=== PATIENT | male | born 1975 | race African-American/Black ===

== ENCOUNTER 2016-05-16 17:47 | Inpatient (IN) | payer OTHER ==
[~2016-05-16] VITALS: Ht 193 cm; Wt 113.4 kg
[~2016-05-16 17:47] MED LIST: ALPR0.253 PO; ARIP10TA28 PO; ATOR20TA40 PO; CARV6.25 PO; FURO-570 PO; METF500T64 PO; PHEN100C4 PO; QUET400T PO; [UNRECOGNIZED DRUG - CODE] SUBQ
[2016-05-16 17:49] VITALS: BP 148/93
--- NOTE | 2016-05-16 20:58 | NUR ---
PT TAKEN TO OF
--- NOTE | 2016-05-16 21:03 | NUR ---
PT MOVED TO BED 3
--- NOTE | 2016-05-16 21:05 | NUR ---
PATIENT PRESENTS TO ED WITH CP X 2 DAYS . PT STATES HE HAS A HX OF HTN, LUPUS, SICKLE CELL, 3 HEART ATTACKS FIRST ONE WAS IN 2000, STROKE 3 WEEKS AGO WITH NO CARIDOLOGIST, BLOOD CLOT DX AT [facility] 04/17/16 AND BLOOD CLOT DX FROM [facility]. PT DENIES N/V/D; SKIN IS PINK/WARM/DRY; AAOX4 WITH EVEN AND STEADY GAIT; LUNGS CLEAR BL; HR EVEN AND REGULAR; PT DENIES ANY FEVER, SOB, OR COUGH AT THIS TIME; PATIENT STATES PAIN OF 10/10 AT THIS TIME; VSS; PATIENT POSITIONED FOR COMFORT; HOB ELEVATED; BEDRAILS UP X2; BED DOWN. ER MD MADE AWARE OF PT STATUS.
--- NOTE | 2016-05-16 21:16 | NUR ---
Dr. Gary evaluating patient at bedside.
--- NOTE | 2016-05-16 21:17 | NUR ---
PT STATES HE IS ALLERGIC TO PCN, NITRO, ASA, IBU, - RASH AND SOB, ER MD DR CHRISTIANSON AWARE
[2016-05-16] MEDS ORDERED: MORPHINE SULFATE 4 MG/ML SYR IVP ONE (22:05)
[2016-05-16 22:43] LABS: BASOPHILS # (AUTO) 0.2 K/uL (0.00-0.22); BASOPHILS % (AUTO) 2.9 % (0.0-2.0); EOSINOPHILS # (AUTO) 0.2 K/uL (0-0.4); EOSINOPHILS % (AUTO) 2.9 % (0.0-4.0); HEMATOCRIT 32.1 % (36-52); HEMOGLOBIN 10.1 g/dL (12.0-18.0); LYMPHOCYTES # (AUTO) 2.1 K/uL (2.0-11.5); LYMPHOCYTES % (AUTO) 32.6 % (20.5-51.1); MEAN CORPUSCULAR HEMOGLOBIN 23 pg (27-31); MEAN CORPUSCULAR HGB CONC 31 g/dL (33-37); MEAN CORPUSCULAR VOLUME 75 fL (80-94); MONOCYTES # (AUTO) 0.4 K/uL (0.8-1.0); MONOCYTES % (AUTO) 6.1 % (1.7-9.3); NEUTROPHILS # (AUTO) 3.4 K/uL (1.8-7.7); NEUTROPHILS % (AUTO) 55.5 % (42.2-75.2); PLATELET COUNT (AUTO) 172 K/uL (140-450); RED CELL DISTRIBUTION WIDTH 17.9 % (11.6-13.7); WHITE BLOOD COUNT (AUTO) 6.3 K/uL (4.8-10.8)
[2016-05-16] MEDS ORDERED: diphenhydrAMINE 50 MG/ML VIAL ONE (22:47)
[2016-05-16] MEDS ORDERED: diphenhydrAMINE 50 MG/ML VIAL IVP ONE (23:10)
[2016-05-16 23:15] LABS: ANION GAP 9.4 (8-16); CALCIUM 7.9 mg/dL (8.5-10.1); CARBON DIOXIDE 28.7 mmol/L (21-32); CREATININE 1.1 mg/dL (0.6-1.3); POTASSIUM 4.1 mmol/L (3.5-5.1)
[2016-05-16 23:20] LABS: ALBUMIN 3.2 g/dL (3.4-5.0); TOTAL BILIRUBIN 0.1 mg/dL (0.0-1.0); TOTAL PROTEIN, SERUM 6.7 g/dL (6.4-8.2)
[2016-05-16 23:32] LABS: CREATINE KINASE MB 3.2 ng/mL (0-3.6)
[2016-05-17] MEDS ORDERED: NACL 0.9% 1,000 ML IV SCH (00:06)
--- NOTE | 2016-05-17 00:07 | NUR ---
Pt report given to DANIELA SUNSHINE. Transfer of care at this time.
--- NOTE | 2016-05-17 00:07 | NUR ---
Patient will be admitted to care of DR SALAS . Admited to TELE 123B. Will go to room 123B. Belongings list completed. Report to DANIELA SUNSHINE.
[2016-05-17] MEDS ORDERED: ACETAMINOPHEN 325 MG TAB PO PRN (00:10)
[2016-05-17] MEDS ORDERED: ONDANSETRON 4 MG/2 ML VIAL IVP PRN (00:10)
[2016-05-17] MEDS ORDERED: HYDROcodone/APAP 5/325 MG 1 TAB TAB PO PRN (00:10)
[2016-05-17 00:30] VITALS: BP 111/58
--- NOTE | 2016-05-17 00:35 | NUR ---
ADMITTED 41 Y/O MALE TO TELE FROM ER AT 0023 AM VIA [employer] WITH DX: CHEST PAIN. INITIAL ASSESSMENT, BODY CHECK AND ADMISSION INTERVENTION DONE. PATIENT AAO X 4, ABLE TO FOLLOW COMMAND AND MAKE NEEDS KNOWN AND AMBULATORY WITH CANE. NO S/S OF DISTRESS OR SOB NOTED UPON ADMISSION. SKIN WARM/DRY TO TOUCH WITH NORMAL COLOR AND INTACT. NOTED NON-PITTING EDEMA TO BLE. INSTRUCTED PATIENT TO UNIT/ROOM. ALSO, DISCUSSED PLAN OF CARE, PAIN MANAGEMENT AND MEDICATION REGIMEN WITH PATIENT AND PATIENT VERBALIZED UNDERSTANDING. PLACED PATIENT ON SAFETY/FALL/SEIZURE PRECAUTIONS AND WILL CONTINUE TO MONITOR. CALL LIGHT LEFT WITHIN REACH.
[2016-05-17 00:36] LABS: INR 1.1 (0.8-1.2); PROTHROMBIN TIME 10.7 secs (10.8-13.4)
[2016-05-17 00:38] LABS: LACTIC ACID 0.5 mmol/L (0.4-2.0)
[2016-05-17 00:46] LABS: AMYLASE 47 U/L (25-115); CHOL/HDL RATIO 4.7 (1-4.5); CHOLESTEROL 196 mg/dL (<200); HDL CHOLESTEROL 42 mg/dL (40-60); LDL (CALC) 134 mg/dL (60-100); PHOSPHORUS 3.4 mg/dL (2.5-4.9); TRIGLYCERIDES 101 mg/dL (30-150)
[2016-05-17 00:47] LABS: ALCOHOL, BLOOD < 3 mg/dL (<3)
[2016-05-17 00:50] LABS: FREE T4 (FREE THYROXINE) 0.82 ng/dL (0.76-1.46); THYROID STIMULATING HORMONE 1.11 uIU/mL (0.34-3.76)
[2016-05-17] MEDS: MORPHINE SULFATE 2 MG/ML SYR IVP PRN ×3 (01:54→10:02)
--- NOTE | 2016-05-17 02:00 | NUR ---
SPOKE TO DR. BAKER OVER THE PHONE REGARDING MEDICATIONS FOR PAIN AND ITCHING, IVF RATE AND ALLERGIES. NEW ORDERS GIVEN, NOTED AND CARRIED-OUT.
--- NOTE | 2016-05-17 02:15 | NUR ---
GAVE 1 PAIR OF HAM SANDWICH, 4 BOXES OF APPLE JUICE, 3 PACKS OF GRAHAMS CRACKER AND 1 BOX OF 2% MILK PER PATIENT REQUESTED. PATIENT STATED HE WAS VERY HUNGRY AND CONSUMED 100 %. EDUCATED PATIENT ABOUT THE DIET AND LIMIT OF FOOD SUPPLY AT NIGHT TIME. THEN, ADMINISTERED MEDICATIONS FOR C/O PAIN AND ITCHING WITH EDUCATION GIVEN. ALL NEEDS ARE ATTENDED AND WILL CONTINUE TO MONITOR.
[2016-05-17 04:00] VITALS: BP 143/78
--- NOTE | 2016-05-17 04:11 | NUR ---
PATIENT RESTED COMFORTABLY IN BED, EASILY AROUSED AND REMAINED IN STABLE CONDITION. NO ANY COMPLAINT MADE. WILL CONTINUE TO MONITOR.
[2016-05-17 04:37] LABS: APPEARANCE,URINE CLEAR (CLEAR); BILIRUBIN,URINE NEGATIVE (NEGATIVE); BLOOD, URINE NEGATIVE (NEGATIVE); COLOR,URINE YELLOW (YELLOW); LEUKOCYTE ESTERASE ,URINE NEGATIVE (NEGATIVE); NITRITE, URINE NEGATIVE (NEGATIVE); PROTEIN,URINE NEGATIVE (NEGATIVE); UGLUCOSE NEGATIVE (NEGATIVE); UROBILINOGEN,URINE 0.2 EU/dL (0.2 - 1)
[2016-05-17 04:42] LABS: BACTERIA,URINE RARE /HPF (None Seen); RBC,URINE 0-3 /HPF (0-5); WBC,URINE 0-3 /HPF (0-5)
[2016-05-17 04:48] LABS: AMPHETAMINE, URINE NEG. ng/ml (NEG <=1000); BARBITURATE, URINE NEG. ng/ml (NEG <=200); BENZODIAZEPINE, URINE NEG. ng/mL (NEG <=200); CANNABINOID, URINE NEG. ng/mL (NEG <=50); COCAINE, URINE NEG. ng/mL (NEG <=300); OPIATE, URINE POS. ng/mL (NEG <=2000); PHENCYCLIDINE SCREEN,URINE NEG. ng/mL (NEG <=25)
--- NOTE | 2016-05-17 05:00 | NUR ---
PATIENT REFUSED SCD'S ,EXPLAINED RISKS/BENEFITS.
--- NOTE | 2016-05-17 07:10 | NUR ---
AT 0645 AM, PATIENT WAS FOUND ON THE FLOOR BESIDE HIS BED. PATIENT HAS HISTORY OF RIGHT SIDE WEAKNESS AND STATED THAT HIS HEAD WAS HIT ON THE BEDSIDE TABLE. BODY ASSESSMENT AND NEURO CHECK DONE. PATIENT REMAINED AAO X 4, FOLLOW COMMAND AND NO CHANGE IN MENTAL STATUS. NO ABRASIONS OR LACERATION NOTED ON THE BODY. B/P: 142/63, 64, 20 , 100 %. PATIENT STATED THAT HE FELT TRYING TO GET TO THE RESTROOM BY HIMSELF. TRANSFERRED PATIENT BACK TO THE BED AND THEN ASSISTED TO THE RESTROOM TO HAVE BOWEL MOVEMENT SAFELY. EXPLANATION WAS GIVEN TO THE PATIENT WHILE BEING ASSISTED BACK TO BED. KEPT PATIENT IN COMFORTABLE POSITION. ALSO, REMINDED PATIENT TO USE THE CALL LIGHT FOR ASSISTANCE. AT [address] PINEDO AND NO NEW ORDER RECEIVED AT THIS TIME. DOCTOR KHRIS STATED THAT HE WILL GO SEE THE PATIENT.WILL CONTINUE TO MONITOR CLOSELY.
--- NOTE | 2016-05-17 07:34 | NUR ---
ENDORSED PLAN OF CARE TO BITA Berger, AT BEDSIDE. PATIENT REMAINED IN STABLE CONDITION. NO S/S OF DISTRESS NOR CHANGE IN LOC NOTED.
--- NOTE | 2016-05-17 07:35 | NUR ---
PT IS SLEEPING. NO S/S OF ACUTE CARDIAC/RESPIRATORY DISTRESS OR DISCOMFORT. SAFETY MEASURES IN PLACE, CALL LIGHT WITHIN REACH. WILL CONTINUE PLAN OF CARE AND CONTINUE TO MONITOR.
[2016-05-17 08:00] VITALS: BP 132/75
--- NOTE | 2016-05-17 08:09 | NUR ---
PATIENT HAS BEEN SCREENED AND CATEGORIZED MODERATE NUTRITION RISK. PATIENT WILL BE SEEN WITHIN 3-5 DAYS OF ADMISSION. 05/19/16-05/21/[address]
[2016-05-17] MEDS ORDERED: DOCUSATE SODIUM 100 MG GELCAP PO SCH (09:00)
[2016-05-17] MEDS ORDERED: ALPRAZolam 0.25 MG TAB PO SCH (09:00)
[2016-05-17] MEDS ORDERED: ATORVASTATIN 20 MG TAB PO SCH ×2 (09:00)
[2016-05-17] MEDS ORDERED: ASPIRIN 81 MG TAB.CHEW PO SCH (09:00)
[2016-05-17] MEDS ORDERED: LISINOPRIL 10 MG TAB PO SCH (09:00)
[2016-05-17] MEDS ORDERED: FUROSEMIDE 40 MG TAB PO SCH (09:00)
[2016-05-17] MEDS ORDERED: ARIPiprazole 10 MG TAB PO SCH (09:00)
[2016-05-17] MEDS ORDERED: METOPROLOL 25 MG TAB PO SCH (09:00)
--- NOTE | 2016-05-17 10:19 | NUR ---
PT IS AWAKE AND AMBULATORY. NO S/S OF ACUTE DISTRESS OR DISCOMFORT. PT EXPECTS FOR EVERYTHING HE WANTS TO BE DELIVERED RIGHT AWAY (E.G. SANDWICH, BED LINEN CHANGE) AND WILL START COMPLAINING LOUDLY AND THROW A MINOR FIT IF NOT RECEIVED WITHIN 2-3 MIN. DISCUSSED WITH PT TO BE PATIENT AND HAVE ALREADY NOTIFIED DIETARY OF HIS SNACK NEEDS BETWEEN MEALS. CALL LIGHT WITHIN REACH, WILL CONTINUE TO MONITOR.
[2016-05-17] MEDS ORDERED: CLOPIDOGREL 75 MG TAB PO SCH (10:31)
[2016-05-17] MEDS ORDERED: diphenhydrAMINE 50 MG/ML VIAL IVP SCH (10:54)
[2016-05-17] MEDS ORDERED: ALBUTEROL SULFATE/IPRATROPIU 3 ML SOL IH PRN (11:10)
[2016-05-17 12:00] VITALS: BP 118/65
[2016-05-17] MEDS ORDERED: PHENYTOIN 100 MG CAPER PO SCH (13:00)
--- NOTE | 2016-05-17 13:07 | NUR ---
PT SLEEPING, FINISHED ALL OF HIS LUNCH AND IS ALWAYS HUNGRY. NO S/S OF ACUTE DISTRESS OR DISCOMFORT. CALL LIGHT WITHIN REACH, WILL CONTINUE TO MONITOR.
[2016-05-17] MEDS ORDERED: KETOROLAC 30 MG/ML VIAL IM PRN (14:20)
[2016-05-17] MEDS ORDERED: ALBUTEROL SULFATE/IPRATROPIU 3 ML SOL IH SCH (15:00)
[2016-05-17] MEDS ORDERED: HYDR-4446 PO (15:06)
[2016-05-17] MEDS ORDERED: DOCU-67 PO (15:07)
--- NOTE | 2016-05-17 15:28 | NUR ---
DISCHARGE INSTRUCTIONS PROVIDED, PT VERBALIZED UNDERSTANDING. DISCHARGE PAPERWORK PARTIALLY SIGNED, PT REFUSED TO FINISH SIGNING, COPY PROVIDED. ARM BANDS REMOVED, IV REMOVED AND INTACT. NO S/S OF ACUTE DISTRESS OR DISCOMFORT. PT IN STABLE CONDITION. PT ESCORTED TO FRONT LOBBY BY SECURITY.
[2016-05-17] MEDS ORDERED: CARVEDILOL 6.25 MG TAB PO SCH (17:00)
[2016-05-17] MEDS ORDERED: metFORMIN 500 MG TAB PO SCH (17:00)
[2016-05-17] MEDS ORDERED: QUEtiapine FUMARATE 100 MG TAB PO SCH (21:00)
[2016-05-18 08:56] LABS: HEMOGLOBIN A1C 5.7 % (4.8-5.6)
[2016-05-18] MEDS ORDERED: CLOPIDOGREL 75 MG TAB PO SCH (09:00)
== END 2016-05-17 15:30 | disposition home or self-care (01) | DRG 206 ==
LOC: MED 17:47 → MTU 23:50
PROVIDERS: ADMIT Family Medicine; ATTEND Family Medicine
DX: M94.0 Chondrocostal junction syndrome [Tietze] (principal); E44.0 Moderate protein-calorie malnutrition; I82.403 Acute embolism and thrombosis of unspecified deep veins of lower extremity, bilateral; E78.5 Hyperlipidemia, unspecified; J44.9 Chronic obstructive pulmonary disease, unspecified; M32.9 Systemic lupus erythematosus, unspecified; E11.65 Type 2 diabetes mellitus with hyperglycemia; D57.1 Sickle-cell disease without crisis; F20.9 Schizophrenia, unspecified; I11.0 Hypertensive heart disease with heart failure; G40.909 Epilepsy, unspecified, not intractable, without status epilepticus; I50.9 Heart failure, unspecified; F17.210 Nicotine dependence, cigarettes, uncomplicated; I25.2 Old myocardial infarction; Z88.6 Allergy status to analgesic agent; Z88.0 Allergy status to penicillin; Z88.9 Allergy status to unspecified drugs, medicaments and biological substances; Z91.041 Radiographic dye allergy status; Z79.899 Other long term (current) drug therapy; Z68.30 Body mass index [BMI] 30.0-30.9, adult; Z86.73 Personal history of transient ischemic attack (TIA), and cerebral infarction without residual deficits
CPT/HCPCS: 36415; 71010; 80053; 80305; 81001; 82150; 82550; 82553; 82948; 83036; 83605; 83690; 83735; 83880; 84100; 84439; 84443; 84479; 84484; 85025; 85610; 85730; 87040; 87081; 87086; 93005; 96374; 96375; 99285; G0482; J1200; J2270; J7030; Q0092; Q0163

== ENCOUNTER 2016-08-22 23:50 | Inpatient (IN) | payer OTHER ==
[~2016-08-22] VITALS: Ht 193 cm; Wt 119.3 kg
[~2016-08-22 23:50] MED LIST changes: +DOCU-67 PO; +HYDR-4446 PO
--- NOTE | 2016-08-22 23:51 | NUR ---
PT JHONATAN ALS. TAKEN TO BED 6
[2016-08-22 23:59] VITALS: BP 136/77
--- NOTE | 2016-08-23 00:10 | NUR ---
PT IS 41/M BIBA C/O ABD PAIN, LOWER QUADRANT, NO BM FOR 3 DAYS, ZOFRAN 4 MG ODT WAS GIVEN ENROUTE PT STATES MED HX OF CHF, HTN, SEIZURES, DVTS, KIDNEY FAILURE. DENIES N/V/D; SKIN IS PINK/WARM/DRY; AAOX4 WITH EVEN AND STEADY GAIT; LUNGS CLEAR BL; HR EVEN AND REGULAR; PT DENIES ANY FEVER AT THIS TIME; PATIENT STATES PAIN OF 10/10 AT THIS TIME; VSS; PATIENT POSITIONED FOR COMFORT; HOB ELEVATED; BEDRAILS UP X2; BED DOWN. ER MD MADE AWARE OF PT STATUS.
[2016-08-23] MEDS ORDERED: NACL 0.9% 1,000 ML IV ONE (00:20)
--- NOTE | 2016-08-23 00:20 | NUR ---
Dr. Blancas evaluating patient at bedside.
--- NOTE | 2016-08-23 01:05 | NUR ---
PT RESTING IN BED, NO SOB NOTED AT THIS TIME. WILL CONTINUE TO CLOSELY MONITOR.
[2016-08-23 01:16] LABS: HEMATOCRIT 30.3 % (36-52); HEMOGLOBIN 9.6 g/dL (12.0-18.0); MEAN CORPUSCULAR HEMOGLOBIN 25 pg (27-31); MEAN CORPUSCULAR HGB CONC 32 g/dL (33-37); MEAN CORPUSCULAR VOLUME 78 fL (80-94); RED CELL DISTRIBUTION WIDTH 18.3 % (11.6-13.7)
[2016-08-23 01:21] LABS: BAND % (MANUAL) 0 % (0-8); EOSINOPHILS % (MANUAL) 3 % (0-4); LYMPHOCYTES % (MANUAL) 20 % (20-46); MONOCYTES % (MANUAL) 7 % (5-12); NEUTROPHILS % (MANUAL) 70 (43-65); PLATELET COUNT (AUTO) 97 K/uL (140-450)
[2016-08-23 01:24] LABS: ALBUMIN 3.1 g/dL (3.4-5.0); ANION GAP 12.6 (8-16); CARBON DIOXIDE 29.5 mmol/L (21-32); CREATININE 1.1 mg/dL (0.6-1.3); POTASSIUM 4.1 mmol/L (3.5-5.1); TOTAL BILIRUBIN 0.1 mg/dL (0.0-1.0); TOTAL PROTEIN, SERUM 7.1 g/dL (6.4-8.2)
[2016-08-23 01:25] LABS: INR 1.1 (0.8-1.2); PARTIAL THROMBOPLASTIN TIME 22.9 secs (22-35.6); PROTHROMBIN TIME 11.2 secs (10.8-13.4)
[2016-08-23] MEDS ORDERED: MORPHINE SULFATE 2 MG/ML SYR IVP ONE (02:00)
--- NOTE | 2016-08-23 02:31 | NUR ---
PT RESTING IN BED. NO SOB NOTED AT THIS TIME. WILL CONTINUE TO MONITOR.
--- NOTE | 2016-08-23 02:45 | NUR ---
Patient will be admitted to care of DR SALAS. Admited to TELE . Will go to room 111B. Belongings list completed. Report to BITA QUIROGA.
[2016-08-23 03:00] VITALS: BP 104/60
--- NOTE | 2016-08-23 03:00 | NUR ---
ADMITTED A 41 M FORM ER. CAME BY JUVENTINO DUE TO ABDOMINAL PAIN AND CHEST PAIN. ON TELE MONITOR. AWAKE,ALERT AND ORIENTED X4. AMBULATORY TO BATHROOM WITH SOME WEAKNESS ON BLE DUE TO PAIN AND SWELLING. HL ON THE RT FA# [phone]. LEAR AND PATENT. IVF INFUSING . PLAN OF CARE DISCUSSED AND VERBALIZED UNDERSTANDING. CALL LIGHT PLACED WITHIN EASY REACH. WILL FOLLOW UP ADMIT ORDER.
[2016-08-23] MEDS: NACL 0.9% 1,000 ML IV SCH ×2 (03:19→05:21)
[2016-08-23] MEDS ORDERED: LORazepam 2 MG/ML VIAL IVP PRN (03:20)
[2016-08-23] MEDS ORDERED: ONDANSETRON 4 MG/2 ML VIAL IVP PRN (03:20)
[2016-08-23] MEDS ORDERED: INSULIN LISPRO SLIDING SCALE 100 UNITS/ML VIAL SUBQ PRN (03:55)
[2016-08-23] MEDS ORDERED: DEXTROSE 50% 50 ML SYR IVP PRN (03:55)
[2016-08-23] MEDS ORDERED: ENOXAPARIN 120 MG/0.8 ML SYR SUBQ SCH ×2 (04:00→09:00)
[2016-08-23 04:26] LABS: FREE T4 (FREE THYROXINE) 0.67 ng/dL (0.76-1.46); PHOSPHORUS 3.7 mg/dL (2.5-4.9); THYROID STIMULATING HORMONE 3.34 uIU/mL (0.34-3.76)
[2016-08-23 04:29] LABS: LACTIC ACID 0.5 mmol/L (0.4-2.0)
--- NOTE | 2016-08-23 06:24 | NUR ---
REFUSED BLOOD SUGAR CHECKED THIS AM . PT SAID HE IS NOT DIABETIC.
--- NOTE | 2016-08-23 06:40 | NUR ---
C/O SEVERE PAIN ON THE LOWER ABDOMEN. PAGED . WILL WAIT FOR CALL BACK.
--- NOTE | 2016-08-23 06:44 | NUR ---
DR. TURNER CALLED BACK AND MADE AWARE OF PT PAIN . AND REFUSAL TO CHECK BLOOD SUGAR THIS AM. WILL DO ORDER.
--- NOTE | 2016-08-23 07:00 | NUR ---
REFUSED TELE MONITORING AND IVF . HE SAID HE CAME HERE FOR ABDOMINAL PAIN NOT FOR THE HEART PROBLEM. WILL HAVE MD MADE AWARE.
[2016-08-23] MEDS ORDERED: MORPHINE SULFATE 2 MG/ML SYR IVP PRN (07:05)
--- NOTE | 2016-08-23 07:15 | NUR ---
STILL WAITING FOR PAIN TO BE VERIFIED. ENDORSED PT IN STABLE CONDITION TO AM NURSE.
[2016-08-23 07:24] LABS: AMPHETAMINE, URINE NEG. ng/ml (NEG <=1000); BARBITURATE, URINE NEG. ng/ml (NEG <=200); BENZODIAZEPINE, URINE NEG. ng/mL (NEG <=200); CANNABINOID, URINE NEG. ng/mL (NEG <=50); COCAINE, URINE NEG. ng/mL (NEG <=300); OPIATE, URINE POS. ng/mL (NEG <=2000); PHENCYCLIDINE SCREEN,URINE NEG. ng/mL (NEG <=25)
[2016-08-23] MEDS ORDERED: BLOOD GLUCOSE MONITORING 1 DEV DEV FS SCH (07:30)
--- NOTE | 2016-08-23 07:35 | NUR ---
RECEIVED REPORT FROM NIGHT RN. UPON ENTERING ROOM PT IS AGITATED. PT STATES HE DOESN'T WANT TO WEAR THE TELE MONITOR BECAUSE "THERE IS NOTHING WRONG WITH MY HEART". PT STATES HE SHOULD NOT BE ON CONTACT ISOLATION. PT REFUSED TO BE HOOKED UP TO IV FLUIDS. PT REPEATEDLY STATES "I JUST WANT MY PAIN MEDS FOR MY STOMACH" ALYSON AT BEDSIDE TO SPEAK TO PT. PT STATES HE WANTS TO LEAVE AMA. PT EDUCATED ON RISKS VS BENEFITS OF LEAVING AMA. PT REFUSED TO SIGN AMA FORM. ALYSON MADE AWARE. LUMBER STACKER MADE AWARE. DR. PINEDO MADE AWARE. IV TAKEN OUT. TIP INTACT. PT REMAINS IN STABLE CONDITION. PT TAKEN OF UNIT.
--- NOTE | 2016-08-23 07:35 | NUR ---
TALKED TO PATIENT BECAUSE PATIENT WANTED TO TALK TO HS COMPLAINING NOT GETTING PAIN MEDICATION. PATIENT WAS UPSET, USED PROFANITY REGARDING ISOLATION (HX MRSA NARES), REFUSED TELE MONITORING, AND PAIN MEDICATION. EXPLAINED TO THE PATIENT THAT PATIENT GOT MORPHINE 2MG IVP IN ER AT 2:30AM, AND MORPHINE WAS ORDERED Q6HRS, SO IT WILL BE DUE AT 8:30. PATIENT WAS UPSET AND USED MORE PROFANITY WORDS, AND STATED THAT PATIENT WANTED TO GO HOME. PRINTED AMA PAPER, AND PATIENT LEFT AMA
[2016-08-23] MEDS ORDERED: metFORMIN 500 MG TAB PO SCH (08:00)
[2016-08-23] MEDS ORDERED: PANTOPRAZOLE 40 MG INJ VIAL IVP SCH (09:00)
[2016-08-23] MEDS ORDERED: METOPROLOL 25 MG TAB PO SCH (09:00)
[2016-08-23] MEDS ORDERED: ARIPiprazole 10 MG TAB PO SCH (09:00)
[2016-08-23] MEDS ORDERED: ATORVASTATIN 20 MG TAB PO SCH (09:00)
[2016-08-23] MEDS ORDERED: FUROSEMIDE 40 MG TAB PO SCH (09:00)
[2016-08-23] MEDS ORDERED: DOCUSATE SODIUM 100 MG GELCAP PO SCH (09:00)
[2016-08-23] MEDS ORDERED: PHENYTOIN 100 MG CAPER PO SCH (09:00)
[2016-08-23] MEDS ORDERED: ALPRAZolam 0.25 MG TAB PO SCH (09:00)
[2016-08-23] MEDS ORDERED: CARVEDILOL 6.25 MG TAB PO SCH (09:00)
[2016-08-23] MEDS ORDERED: QUEtiapine FUMARATE 100 MG TAB PO SCH (21:00)
== END 2016-08-23 07:35 | disposition left against medical advice (07) | DRG 311 ==
LOC: MED 23:50 → MTU 08-23 02:29
PROVIDERS: ADMIT Family Medicine; ATTEND Family Medicine
DX: I24.9 Acute ischemic heart disease, unspecified (principal); M32.9 Systemic lupus erythematosus, unspecified; I11.0 Hypertensive heart disease with heart failure; I50.9 Heart failure, unspecified; E11.9 Type 2 diabetes mellitus without complications; E83.51 Hypocalcemia; F17.210 Nicotine dependence, cigarettes, uncomplicated; Z60.2 Problems related to living alone; Z53.21 Procedure and treatment not carried out due to patient leaving prior to being seen by health care provider; Z88.0 Allergy status to penicillin; Z88.8 Allergy status to other drugs, medicaments and biological substances; Z88.6 Allergy status to analgesic agent; Z85.9 Personal history of malignant neoplasm, unspecified; Z91.041 Radiographic dye allergy status; Z79.899 Other long term (current) drug therapy
CPT/HCPCS: 36415; 74022; 80053; 80185; 80305; 82150; 83036; 83605; 83690; 83735; 83880; 84100; 84439; 84443; 84484; 85025; 85610; 85730; 93005; 96374; 99285; J1650; J2270; J7030

== ENCOUNTER 2016-09-12 21:19 | Observation (INO) | payer OTHER ==
[~2016-09-12] VITALS: Ht 193 cm; Wt 123.4 kg
[2016-09-12 21:35] VITALS: BP 130/86
--- NOTE | 2016-09-12 21:47 | NUR ---
Jelly quintana in [facility] - 09/12/16 at 2151 by CHANEL PT TAKEN TO BED 6
--- NOTE | 2016-09-12 21:48 | NUR ---
Jelly quintana in [facility] - 09/12/[address] Gary evaluating patient at bedside.
--- NOTE | 2016-09-12 22:35 | NUR ---
LABS BEING DRAWN BY PHLEB
--- NOTE | 2016-09-12 22:37 | NUR ---
PT TAKEN TO BED 5
--- NOTE | 2016-09-12 22:38 | NUR ---
PT IS 41M BIB FRIEND C/O CHEST PAIN X 2 DAYS.PT STATES MEDHX: 3 NY'S, 3 CVA'S, BLOOD CLOTT IN LUNGS, SEIZURES, HTN, HYPERLIPIDEMIA, PROSTATE CANCER, MRSA. DENIES N/V/D; SKIN IS PINK/WARM/DRY; AAOX4 WITH EVEN AND STEADY GAIT; LUNGS CLEAR BL; HR EVEN AND REGULAR; PT DENIES ANY FEVER, SOB, OR COUGH AT THIS TIME; PATIENT STATES PAIN OF 8/10 AT THIS TIME; VSS; PATIENT POSITIONED FOR COMFORT; HOB ELEVATED; BEDRAILS UP X2; BED DOWN. ER MADE AWARE OF PT STATUS. Addendum: 09/13/16 at 0209 by DAVION PT ALLERGIC TO PCN, ACETAMINOPHEN, ASPIRIN, IODINE.
[2016-09-12 22:49] LABS: BASOPHILS # (AUTO) 0.2 K/uL (0.00-0.22); BASOPHILS % (AUTO) 2.8 % (0.0-2.0); EOSINOPHILS # (AUTO) 0.2 K/uL (0-0.4); EOSINOPHILS % (AUTO) 3.4 % (0.0-4.0); HEMATOCRIT 31.5 % (36-52); HEMOGLOBIN 10.2 g/dL (12.0-18.0); LYMPHOCYTES # (AUTO) 1.2 K/uL (2.0-11.5); LYMPHOCYTES % (AUTO) 21.9 % (20.5-51.1); MEAN CORPUSCULAR HEMOGLOBIN 25 pg (27-31); MEAN CORPUSCULAR HGB CONC 32 g/dL (33-37); MEAN CORPUSCULAR VOLUME 77 fL (80-94); MONOCYTES # (AUTO) 0.4 K/uL (0.8-1.0); MONOCYTES % (AUTO) 7.7 % (1.7-9.3); NEUTROPHILS # (AUTO) 3.6 K/uL (1.8-7.7); NEUTROPHILS % (AUTO) 64.2 % (42.2-75.2); PLATELET COUNT (AUTO) 200 K/uL (140-450); RED BLOOD CELL COUNT(AUTO) 4.07 MIL/uL (4.20-6.10); RED CELL DISTRIBUTION WIDTH 18.1 % (11.6-13.7); WHITE BLOOD COUNT (AUTO) 5.6 K/uL (4.8-10.8)
--- NOTE | 2016-09-12 22:51 | NUR ---
PT HAVING CXR DONE AT BEDSIDE.
[2016-09-12 23:11] LABS: ALBUMIN 3.6 g/dL (3.4-5.0); ANION GAP 10.4 (8-16); CALCIUM 8.6 mg/dL (8.5-10.1); CREATININE 1.2 mg/dL (0.7-1.3); POTASSIUM 4.4 mmol/L (3.5-5.1); TOTAL BILIRUBIN 0.2 mg/dL (0.0-1.0); TOTAL PROTEIN, SERUM 7.8 g/dL (6.4-8.2)
--- NOTE | 2016-09-12 23:14 | NUR ---
Dr. Gary evaluating patient at bedside.
[2016-09-12 23:16] LABS: CREATINE KINASE MB 2.7 ng/mL (0-3.6)
[2016-09-12] MEDS ORDERED: MORPHINE SULFATE 4 MG/ML SYR IM ONE (23:30)
[2016-09-12 23:43] LABS: INR 1.1 (0.8-1.2); PARTIAL THROMBOPLASTIN TIME 27.5 secs (22-35.6); PROTHROMBIN TIME 11.6 secs (10.8-13.4)
--- NOTE | 2016-09-13 00:07 | NUR ---
PT APPEARS TO BE RESTING IN BED COMFORTABLY. FLACC 0 AT THIS TIME. NO SOB NOTED. WILL CONTINUE TO MONITOR.
--- NOTE | 2016-09-13 00:16 | NUR ---
PT HAVING US DONE AT BEDSIDE AT THIS TIME
[2016-09-13] MEDS ORDERED: diphenhydrAMINE 50 MG/ML VIAL IVP ONE (02:00)
[2016-09-13] MEDS ORDERED: MORPHINE SULFATE 4 MG/ML SYR IVP ONE (02:00)
--- NOTE | 2016-09-13 02:23 | NUR ---
Patient will be admitted to care of DR BAKER. Admited to TELE. Will go to room 118. Belongings list completed. Report to BITA ORONA.
[2016-09-13 02:40] VITALS: BP 146/96
--- NOTE | 2016-09-13 02:40 | NUR ---
RECEIVED PT FROM ER VIA JUVENTINO WITH DX CHEST PAIN DENIES ANY CHEST PAIN AT THIS TIME PAIN MEDIC WAS GIVEN IN ER, PT ON TELEMETRY SR SKIN IS INTACT, HL ON LEFT AC GAUGE # 20 NOT BLOOD RETURN AND PAINFUL TO FLUSH WITH NS WAS REMOVED PT IS ORIENTED TO THE FLOOR CALL LIGHT WITHIN REACH AND I EXPLAIN TO THE PT A NEW IV ACCESS WE WILL BE TRY TO INSERTED AND HE AGREE. AND AFTER 2 NURSES TRYING AND UNABLE TO GET IV USING THE ACCUVEIN, CHARGE NURSE YUSUF TRY TO GE IV AND UNABLE TO GET AN ACCESS, I CALL ICU AND ER FOR HELP AND FROM ER CAME A TEAM TO TRY TO INSERT IV AND UNABLE TO GET AN ACCESS THE RESIDENT ADRIANNA ASH WAS HERE AT PT BEDSIDE AND DR CHRISTIANSON FROM ER WAS HERE WITH; THE PT TOO AWARE. TIRE CLASSIFIER ALICIA WAS HERE AT PT BEDSIDE AWARE PT CONDITION.
[2016-09-13] MEDS ORDERED: IPRATROPIUM HFA MDI 17 MCG/ACTUATION 12.9 GM INH PRN (03:05)
[2016-09-13] MEDS ORDERED: LORazepam 0.5 MG TAB PO ONE (03:05)
[2016-09-13 03:16] LABS: CHOL/HDL RATIO 4.1 (1-4.5); MAGNESIUM 1.6 mg/dL (1.8-2.4)
--- NOTE | 2016-09-13 03:33 | NUR ---
IV WAS INFILTRATED WHEN HE ARRIVED TO FLOOR.TRIED TO REINSERT IV.TRIED ONE TIME I COULD NOT PT IS VERY HARD STICK.HE REFUSED TO TRY AGAIN.WESLEY RN SIGNS CLEANER AWARE.ICU NURSE WILL COME AND TRY.
[2016-09-13] MEDS ORDERED: ALBUTEROL SULFATE/IPRATROPIU 3 ML SOL IH PRN (03:55)
[2016-09-13 04:00] VITALS: BP 139/83
--- NOTE | 2016-09-13 04:00 | NUR ---
PT HAS BEEN ADMITTING FOR OBSERVATION DENIES ANY CHEST PAIN OR LEG PAIN AT THIS TIME GETTING SLEEP AFTER HE ATE A SANDWICH
[2016-09-13 04:17] LABS: APPEARANCE,URINE CLEAR (CLEAR); BILIRUBIN,URINE NEGATIVE (NEGATIVE); BLOOD, URINE NEGATIVE (NEGATIVE); COLOR,URINE YELLOW (YELLOW); LEUKOCYTE ESTERASE ,URINE NEGATIVE (NEGATIVE); NITRITE, URINE NEGATIVE (NEGATIVE); PH,URINE 6.5 (5.0-9.0); PROTEIN,URINE NEGATIVE (NEGATIVE); UGLUCOSE NEGATIVE (NEGATIVE); UROBILINOGEN,URINE 0.2 EU/dL (0.2 - 1)
[2016-09-13 04:28] LABS: BACTERIA,URINE None Seen /HPF (None Seen); RBC,URINE 0-5 (RARE) /HPF (0-5); SQUAMOUS EPITHELIAL CELL,UR None Seen /LPF (0-3 (FEW)); WBC,URINE 0-5 (RARE) /HPF (0-5)
--- NOTE | 2016-09-13 04:30 | NUR ---
A NURSE AURELIA FROM ICU CAME TO INSERT IV AND PT HARD STICK UNABLE TO GET IV ACCESS
[2016-09-13] MEDS ORDERED: PHENYTOIN 100 MG CAPER PO ONE (05:00)
--- NOTE | 2016-09-13 05:18 | NUR ---
PT SLEEPING AT THIS TIME DENIES ANE CHEST PAIN, ON TELEMETRY SR
--- NOTE | 2016-09-13 06:37 | NUR ---
;PT RESTING ON BED DENIES ANY CHEST KLPAIN ON TELEMETRY SR
[2016-09-13] MEDS ORDERED: PHENYTOIN 100 MG/2 ML VIAL IVP SCH (07:00)
--- NOTE | 2016-09-13 07:15 | NUR ---
REPORT GIVEN TO HENRY CASTELLANOS RN AT PT BED SIDE AND PT VERBALIZED THAT HE DOES NOT WANT A MALE NURSE.
--- NOTE | 2016-09-13 07:21 | NUR ---
PT IS AWAKE AND ALERT. DID NOT ALLOW ME TO LISTEN TO HIS BREATH SOUNDS.
[2016-09-13] MEDS ORDERED: CARVEDILOL 6.25 MG TAB PO SCH (08:00)
[2016-09-13] MEDS ORDERED: metFORMIN 500 MG TAB PO SCH (08:00)
[2016-09-13] MEDS ORDERED: PHENYTOIN 100 MG/2 ML VIAL IVP ONE (08:00)
--- NOTE | 2016-09-13 08:00 | NUR ---
RECEIVED REPORT FROM THE FIREPROOF DOOR ASSEMBLER . PATIENT WALKING AROUND REFUSED TO HAVE A MALE NURSE . NO S/S OF RESP DISTRESS NOTED NO COMPLAIN OF PAIN . ABLE TO MAKE NEEDS KNOWN . VERY UNCOOPERATIVE REFUSED TO HAVE IV ACCESS AND TELE MONITOR. EXPLAIN THE HIGH RISK , STILL PATIENT REFUSED AND INSIST TO LEAVE .
--- NOTE | 2016-09-13 08:38 | NUR ---
DUE MEDS GIVEN PATIENT REFUSED TO TAKE METFORMIN , LASIX AND XANAX . STATED WANTED TO GO, WAITING FOR THE DISCHARGE ORDER.
--- NOTE | 2016-09-13 08:45 | NUR ---
PATIENT WALKING AROUND THE HALLWAY STATED HE CAN'T WAIT HE HAS TO GO EXPLAIN TO THE PATIENT DISCHARGE PAPER TAKES A TIME TO CLARIFY BUT PATIENT IS VERY LOUD UNCOOPERATIVE REFUSED TO SIGN AMA WILL CONTINUE TO MONITOR.
[2016-09-13 08:49] VITALS: BP 141/69
[2016-09-13] MEDS ORDERED: ALPRAZolam 0.25 MG TAB PO SCH (09:00)
[2016-09-13] MEDS ORDERED: TAMSULOSIN 0.4 MG CAP PO SCH (09:00)
[2016-09-13] MEDS ORDERED: FUROSEMIDE 40 MG TAB PO SCH (09:00)
[2016-09-13] MEDS ORDERED: PHENYTOIN 100 MG/4 ML UDC PO SCH (09:00)
[2016-09-13] MEDS ORDERED: CARVEDILOL 6.25 MG TAB PO ONE (09:00)
[2016-09-13] MEDS ORDERED: ARIPiprazole 10 MG TAB PO SCH (09:00)
[2016-09-13] MEDS ORDERED: ATORVASTATIN 20 MG TAB PO SCH (09:00)
--- NOTE | 2016-09-13 09:07 | NUR ---
PATIENT VERY AGITATED UNCOOPERATIVE REFUSED TO SIGN AMA , SOFTWOOD FALLER MARCO , AND CIRILO (DISEASE EDUCATION SPECIALIST) TALKED TO HIM OFFERED BUS PASS BUT PATIENT WALKED OUT TO THE BACK DOOR AND LEFT .
--- NOTE | 2016-09-13 09:08 | NUR ---
PATIENT HAS BEEN SCREENED AND CATEGORIZED MODERATE NUTRITION RISK. PATIENT WILL BE SEEN WITHIN 3-5 DAYS OF ADMISSION. 09/15/16-09/17/[address]
[2016-09-13] MEDS ORDERED: QUEtiapine FUMARATE 100 MG TAB PO SCH (21:00)
== END 2016-09-13 09:10 | disposition left against medical advice (07) ==
LOC: MED 21:19 → MTU 09-13 02:51
PROVIDERS: ADMIT Student in an Organized Health Care Education/Training Program; ATTEND Student in an Organized Health Care Education/Training Program
DX: I26.99 Other pulmonary embolism without acute cor pulmonale (principal); G40.909 Epilepsy, unspecified, not intractable, without status epilepticus; F20.9 Schizophrenia, unspecified; D50.9 Iron deficiency anemia, unspecified; E78.00 Pure hypercholesterolemia, unspecified; E66.9 Obesity, unspecified; R73.03 Prediabetes; Z91.14 Patient's other noncompliance with medication regimen
CPT/HCPCS: 36415; 36556; 71010; 80053; 80061; 80185; 81001; 82550; 82553; 83690; 83721; 83735; 84484; 85025; 85379; 85610; 85730; 87081; 93005; 93970; 94760; 96372; 96374; 96375; 99285; G0378; J1200; J2270; Q0092; J7620

== ENCOUNTER 2016-12-17 01:22 | Inpatient (IN) | payer OTHER ==
[~2016-12-17] VITALS: Ht 193 cm; Wt 119.7 kg
[~2016-12-17 01:22] MED LIST changes: +ABI10 PO; +ACET-8386 PO; -ARIP10TA28 PO; +DOCU-299 PO; -DOCU-67 PO; +GLU500 PO; -HYDR-4446 PO; -METF500T64 PO
--- NOTE | 2016-12-17 01:22 | NUR ---
Patient was BIBA at this time.
[2016-12-17 01:28] VITALS: BP 148/95
--- NOTE | 2016-12-17 01:37 | NUR ---
Patient being taken to bed 12 via gurney per EMS.
--- NOTE | 2016-12-17 01:40 | NUR ---
41/[place]a [place] bus [place] with complaints of chest pain since yesterday. AOX4, bilateral lower leg edema noted, +2 ptting edema. Pt also c/o right leg pain. Pt was noted standing from gurney and getting into bed. Pt states he ambulates. Pt describes chest pain as tightness, non radiating, 09/05. VSS at this time.
--- NOTE | 2016-12-17 01:47 | NUR ---
Pt states "I'm a hard stick. I only want my blood taken with an IV."
--- NOTE | 2016-12-17 02:08 | NUR ---
Patient being evaluated by physician at bedside.
[2016-12-17] MEDS ORDERED: MORPHINE SULFATE 4 MG/ML SYR IVP ONE ×2 (02:15→04:55)
[2016-12-17] MEDS ORDERED: NACL 0.9% 1,000 ML IV ONE (02:15)
--- NOTE | 2016-12-17 02:50 | NUR ---
Pt refused lab draw. Pt states "I want the IV only and then you can take my blood." Dr. Braun made aware.
--- NOTE | 2016-12-17 02:55 | NUR ---
Pt refused US until IV is inserted.
[2016-12-17] MEDS ORDERED: diphenhydrAMINE 50 MG/ML VIAL IVP ONE (03:15)
--- NOTE | 2016-12-17 03:34 | NUR ---
Ultrasound at bedside.
[2016-12-17 03:40] LABS: HEMATOCRIT 34.1 % (36-52); HEMOGLOBIN 10.4 g/dL (12.0-18.0); MEAN CORPUSCULAR HEMOGLOBIN 24 pg (27-31); MEAN CORPUSCULAR HGB CONC 31 g/dL (33-37); MEAN CORPUSCULAR VOLUME 80 fL (80-94); PLATELET COUNT (AUTO) 168 K/uL (140-450); RED BLOOD CELL COUNT(AUTO) 4.28 MIL/uL (4.20-6.10); RED CELL DISTRIBUTION WIDTH 20.1 % (11.6-13.7); WHITE BLOOD COUNT (AUTO) 5.8 K/uL (4.8-10.8)
--- NOTE | 2016-12-17 03:40 | NUR ---
Pt states he was dx with a DVT to right leg but signed out AMA and came back today. Pt did not disclose this information up until now. IV fluids discontinued in the right foot. IV left in place. Dr. Braun made aware along with charge nurse
[2016-12-17 03:49] LABS: ANION GAP 6.9 (8-16); CARBON DIOXIDE 30.4 mmol/L (21-32); POTASSIUM 4.3 mmol/L (3.5-5.1)
[2016-12-17 03:50] LABS: APPEARANCE,URINE CLEAR (CLEAR); BILIRUBIN,URINE NEGATIVE (NEGATIVE); BLOOD, URINE NEGATIVE (NEGATIVE); COLOR,URINE YELLOW (YELLOW); LEUKOCYTE ESTERASE ,URINE NEGATIVE (NEGATIVE); NITRITE, URINE NEGATIVE (NEGATIVE); PH,URINE 7.5 (5.0-9.0); UGLUCOSE NEGATIVE (NEGATIVE)
[2016-12-17 03:57] LABS: ALBUMIN 3.3 g/dL (3.4-5.0); TOTAL BILIRUBIN 0.1 mg/dL (0.0-1.0)
[2016-12-17 04:00] LABS: BARBITURATE, URINE NEG. ng/ml (NEG <=200); BENZODIAZEPINE, URINE NEG. ng/mL (NEG <=200); CANNABINOID, URINE NEG. ng/mL (NEG <=50); COCAINE, URINE NEG. ng/mL (NEG <=300); OPIATE, URINE NEG. ng/mL (NEG <=2000); PHENCYCLIDINE SCREEN,URINE NEG. ng/mL (NEG <=25)
[2016-12-17 04:02] LABS: EOSINOPHILS % (MANUAL) 3 % (0-4); LYMPHOCYTES % (MANUAL) 22 % (20-46); MONOCYTES % (MANUAL) 9 % (5-12)
--- NOTE | 2016-12-17 04:14 | NUR ---
Greene provided. Pt tolerating well. VSS. Comfort needs med.
[2016-12-17 04:19] LABS: RBC,URINE NONE SEEN /HPF (0-5); WBC,URINE 0-5 (RARE) /HPF (0-5)
[2016-12-17 04:30] LABS: PROTHROMBIN TIME 10.9 secs (10.8-13.4)
[2016-12-17] MEDS ORDERED: NIFE30TE5 PO (04:33)
[2016-12-17] MEDS ORDERED: POTA10TE30 PO (04:33)
[2016-12-17] MEDS ORDERED: ENOXAPARIN 120 MG/0.8 ML SYR SUBQ ONE (05:15)
[2016-12-17] MEDS: NACL 0.9% 1,000 ML IV SCH ×3 (05:46→19:06)
[2016-12-17] MEDS ORDERED: KETOROLAC 30 MG/ML VIAL IVP PRN (05:50)
[2016-12-17] MEDS ORDERED: HYDROcodone/APAP 7.5/325 MG 1 TAB PO PRN (05:50)
[2016-12-17] MEDS ORDERED: ACETAMINOPHEN 325 MG TAB PO PRN (05:50)
[2016-12-17] MEDS ORDERED: MORPHINE SULFATE 2 MG/ML SYR IVP PRN (05:50)
[2016-12-17] MEDS ORDERED: ONDANSETRON 4 MG/2 ML VIAL IM/IVP PRN (05:50)
[2016-12-17] MEDS ORDERED: DOCUSATE SODIUM 100 MG GELCAP PO PRN (05:50)
[2016-12-17] MEDS ORDERED: HEPARIN PER PHARMACY MC PRN (06:00)
--- NOTE | 2016-12-17 06:07 | NUR ---
Pt report given to Lacey Watson nurse. Per Lacey pt is not to be admitted until day shift and only report is being given.
[2016-12-17 06:49] LABS: CHOL/HDL RATIO 3.2 (1-4.5); FREE T4 (FREE THYROXINE) 0.67 ng/dL (0.76-1.46); MAGNESIUM 1.9 mg/dL (1.8-2.4); PHOSPHORUS 3.4 mg/dL (2.5-4.9); THYROID STIMULATING HORMONE 1.92 uIU/mL (0.34-3.74)
--- NOTE | 2016-12-17 07:20 | NUR ---
RECEIVED REPORT FROM DIESEL ENGINE MECHANIC CHARGE NURSE, PT IS A/OX4, AMBULATORY, PT HAS IV ON THE RT FOOT, PATENT AND INTACT, SKIN IS INTACT, THERE IS NON PITTING EDEMA IN RIGHT FOOT, NO S/S OF RESPIRATORY DISTRESS OR DISCOMFORT NOTED, DISCUSSED PLAN OF CARE WITH PT, PT VERBALIZED UNDERSTANDING, SAFETY/FALL/SEIZURE PRECAUTIONS ARE IN PLACE, CALL LIGHT WITHIN REACH, WILL CONTINUE TO MONITOR.
[2016-12-17 07:36] VITALS: BP 143/89
[2016-12-17] MEDS: PANTOPRAZOLE 40 MG INJ VIAL IVP SCH ×2 (08:58→09:00)
[2016-12-17] MEDS ORDERED: POTASSIUM CHLORIDE 10 MEQ TABER PO SCH (09:00)
--- NOTE | 2016-12-17 09:15 | NUR ---
PT STATED IV ON THE RIGHT FOOT WAS BOTHERING HIM AND ASKED FOR IT TO BE REMOVED.
[2016-12-17] MEDS: FUROSEMIDE 40 MG TAB PO SCH (09:37)
[2016-12-17] MEDS: ATORVASTATIN 20 MG TAB PO SCH (09:37)
[2016-12-17] MEDS: PHENYTOIN 100 MG CAPER PO SCH ×3 (09:37→17:01)
[2016-12-17] MEDS: NIFEdipine 30 MG TABER PO SCH (09:37)
--- NOTE | 2016-12-17 10:00 | NUR ---
NEW IV STARTED ON THE LEFT UPPER ARM, 22 GAUGE.
[2016-12-17 12:00] VITALS: BP 122/86
[2016-12-17] MEDS ORDERED: MORPHINE SULFATE 2 MG/ML SYR IM PRN (12:05)
[2016-12-17] MEDS: MORPHINE SULFATE 2 MG/ML SYR IVP PRN ×3 (13:41→20:25)
--- NOTE | 2016-12-17 13:48 | NUR ---
I LET DR. FARRIS KNOW THE CHARGE NURSE HAD STARTED A NEW IV ON HIS LEFT UPPER ARM, I ASKED DR. FARRIS IF HE STILL WANTED TO START HIM ON HEPARIN DRIP SINCE HE WAS ALREADY GIVEN LOVENOX IN ER. DR. FARRIS SAID IT WAS FINE TO START HIM ON HEPARIN.
--- NOTE | 2016-12-17 14:40 | NUR ---
CALLED PHARMACY AND SPOKE TO PHARMACIST CUONG, I LET HIM KNOW THE CALCULATION FOR THE HEPARIN DRIP WAS MISSING, I ASKED HIM IF HE COULD PLEASE PUT IT INPUT IT BECAUSE IT WAS MISSING AT THIS TIME.
[2016-12-17 16:00] VITALS: BP 129/74
--- NOTE | 2016-12-17 16:00 | NUR ---
WALKED OVER TO PHARMACY AND SPOKE TO THE PHARMACIST, CUONG. I TOLD CUONG I WANTED TO VERIFY AT WHAT RATE THE HEPARIN DRIP SHOULD BE RUNNING, I WAS TOLD HEPARIN DRIP FOR THIS PATIENT WAS TO BE STARTED AT 1800UNITS/HR AND BOLUS TO BE GIVEN WAS 7000 UNITS, CUONG SAID HE WAS GOING OFF BY ADJUSTED WEIGHT.
--- NOTE | 2016-12-17 16:23 | NUR ---
HEPARIN DRIP STARTED AT 1800UNITS/HR AT THIS TIME.
[2016-12-17] MEDS: hePARIN / DEXT 5% PREMIX 250 ML IV SCH (16:24)
--- NOTE | 2016-12-17 19:10 | NUR ---
ENDORSED PT TO AUTOMOTIVE PARTS COUNTER ASSISTANT NURSE FOR CONTINUITY OF CARE, PT STABLE AT THIS TIME.
--- NOTE | 2016-12-17 19:30 | NUR ---
RECEIVED FROM AM RN IN BED AWAKE AND ALERT. NO SOB. DENIES PAIN AT THIS TIME. ABLE TO VERBALIZE NEEDS WELL. ON HEPARIN DRIP AT 18 ML/H AND IVF SITE INTACT AND RIGHT LEG WITH EDEMA RT TO DVT. CALL LIGHT WITH IN REACH AT ALL TIMES. TELEMETRY MONITORING.
[2016-12-17] MEDS: diphenhydrAMINE 50 MG/ML VIAL IVP PRN (20:26)
--- NOTE | 2016-12-17 20:30 | NUR ---
MEDICATED WITH PAIN RELIEVER AND BENADRYL IV 25 MG. REQUESTED. PT. SHOUTING ALL THE TIME WHEN HE WANTS SOMETHING. ENCOURAGED TO KEEP VOICE DOWN RT THIS IS A HOSPITAL. SAYS SORRY BUT STILL SHOUTS OUT LOUD . TELEMETRY MONITORING.
[2016-12-17 20:31] VITALS: BP 132/79
[2016-12-17] MEDS ORDERED: QUEtiapine FUMARATE 100 MG TAB PO SCH (21:00)
--- NOTE | 2016-12-17 22:00 | NUR ---
PT. AWAKE AT THIS TIME AND SHOUTING THAT HE NEEDS TO BE CLEANED UP. PT. WET BEDDINGS AND STATED THAT HE WAS IN A HURRY TO URINATE. REFUSED TO USE URINAL PROVIDED. KEPT CLEAN AND ALL BEDDINGS CHANGED. KEPT WARM AND DRY. CALL LIGHT WITH IN REACH.
--- NOTE | 2016-12-17 23:39 | NUR ---
SLEEPING AT THIS TIME. CALL LIGHT WITH IN REACH .
[2016-12-18] VITALS: BP 126/76
--- NOTE | 2016-12-18 00:56 | NUR ---
PT. AWAKE AT THIS TIME. PLANT GENERAL MANAGER IN HERE TO GET BLOOD FOR PTT . PT. THREW HIS SEIZURE PROTECTION PADS ON THE FLOOR AND REFUSED TO HAVE IT BACK. STATED"I DO NOT NEED THESE.". PROS AND CONS EXPLAINED. HE STILL REFUSED.
[2016-12-18] MEDS: NACL 0.9% 1,000 ML IV SCH ×3 (01:46→15:06)
--- NOTE | 2016-12-18 04:42 | NUR ---
SLEEPING WELL THIS SHIFT. EASILY WAKES UP WHEN CALLED BY NAME. TELEMETRY MONITORING. CALL LIGHT WITH IN REACG. NO SOB.
[2016-12-18 05:06] VITALS: BP 122/80
[2016-12-18 05:19] LABS: HEMATOCRIT 34.1 % (36-52)
[2016-12-18] MEDS: hePARIN / DEXT 5% PREMIX 250 ML IV SCH (05:19)
[2016-12-18 05:24] LABS: ANION GAP 6.9 (8-16); CARBON DIOXIDE 30.5 mmol/L (21-32); CREATININE 1.1 mg/dL (0.7-1.3); POTASSIUM 4.4 mmol/L (3.5-5.1)
[2016-12-18 05:34] LABS: MAGNESIUM 1.8 mg/dL (1.8-2.4); PHOSPHORUS 3.6 mg/dL (2.5-4.9)
--- NOTE | 2016-12-18 06:00 | NUR ---
PT. AM HYGIENE RENDERED BY CNAS. PT. COMPLAINED OF GENERALIZED PAIN . REQUESTED FOR PAIN RELIEVER. CHECKED HIM SOON CNAS WERE DONE WITH THEIR ROUTINE WITH HIM BUT FOUND PT. SLEEPING AND SNORING. WILL WAIT TILL HE WAKES UP AGAIN.
[2016-12-18 06:26] LABS: HEMOGLOBIN 10.5 g/dL (12.0-18.0); MEAN CORPUSCULAR HEMOGLOBIN 25 pg (27-31); MEAN CORPUSCULAR HGB CONC 31 g/dL (33-37); MEAN CORPUSCULAR VOLUME 81 fL (80-94); PLATELET COUNT (AUTO) 157 K/uL (140-450); RED BLOOD CELL COUNT(AUTO) 4.22 MIL/uL (4.20-6.10); RED CELL DISTRIBUTION WIDTH 20.4 % (11.6-13.7); WHITE BLOOD COUNT (AUTO) 5.5 K/uL (4.8-10.8)
--- NOTE | 2016-12-18 07:30 | NUR ---
RECEIVED REPORT FROM SHIP RIGGER NURSE AT BEDSIDE FOR CONTINUITY OF CARE. PT IS AWAKE AND ORIENTED. INTRODUCED SELF AND UPDATED BOARD. PT IS ON RA. HEPARIN DRIP STILL INFUSING AT 16ML/HR. PT COMPLAINED OF PAIN 09/05. WILL RETURN AND MEDICATE FOR PAIN.
[2016-12-18 07:44] LABS: EOSINOPHILS % (MANUAL) 5 % (0-4); LYMPHOCYTES % (MANUAL) 45 % (20-46); MONOCYTES % (MANUAL) 6 % (5-12)
[2016-12-18 08:00] VITALS: BP 125/85
[2016-12-18] MEDS: MORPHINE SULFATE 2 MG/ML SYR IVP PRN ×2 (08:10→14:54)
[2016-12-18] MEDS: diphenhydrAMINE 50 MG/ML VIAL IVP PRN ×2 (08:11→14:54)
[2016-12-18] MEDS: NIFEdipine 30 MG TABER PO SCH (10:02)
[2016-12-18] MEDS: PANTOPRAZOLE 40 MG INJ VIAL IVP SCH (10:02)
--- NOTE | 2016-12-18 10:02 | NUR ---
PT IS RESTING COMFORTABLY IN BED. TV IS ON. ADMINISTERED SCHEDULED MEDS. PT TOLERATED WELL. STATED HE WANTS TO GET SOME REST. NO SIGNS OF DISTRESS. DENIES PAIN. BED IN LOW POSITION. CALL LIGHT WITHIN REACH. WILL CONTINUE TO MONITOR.
[2016-12-18] MEDS: ATORVASTATIN 20 MG TAB PO SCH (10:07)
[2016-12-18] MEDS: FUROSEMIDE 40 MG TAB PO SCH (10:07)
[2016-12-18] MEDS: PHENYTOIN 100 MG CAPER PO SCH ×3 (10:07→17:00)
[2016-12-18 10:12] LABS: T4 (THYROXINE) 5.1 ug/dL (4.5-12.0)
[2016-12-18 12:00] VITALS: BP 130/87
[2016-12-18] MEDS ORDERED: MORPHINE SULFATE 2 MG/ML SYR IVP PRN (15:10)
--- NOTE | 2016-12-18 18:15 | NUR ---
PT WAS YELLING AT NURSING STAFF AND STATED THAT HE WANTED TO GET OUT OF HERE. WALKED DOWN THE ANN AND RAISED VOICED STATED VERBALLY ABUSIVE REMARKS TO NURSING STAFF AND DR. PT STATED HE WANTED TO SIGN AMA FORM AND SAYS HE WILL GO TO [facility]. OBTAINED SIGNATURE FROM PT. PT CHANGED TO CLOTHES. REMOVED IV FROM LEFT UPPER ARM. IV CATHETER TIP INTACT. APPLIED PRESSURE TO SITE. PT REFUSED TO HAVE PRESSURE APPLIED LONGER. PT RIPPED ID BANDS OFF SELF AND REMOVED TELE MONITOR HIMSELF. RETAIL ACCOUNT SPECIALIST AND RN WENT TO ASSIST PT TO ACCOMPANY OUT OF HOSPITAL. PT TOOK OFF AND LEFT ON OWN THROUGH EMERGENCY EXIT DOOR REFUSING TO LEAVE WITH ASSISTANCE. PT LEFT AMA VIA AMBULATION OUT OF HOSPITAL.
[2016-12-18] MEDS ORDERED: RIVAROXABAN 15 MG TAB PO SCH (21:00)
== END 2016-12-18 18:15 | disposition left against medical advice (07) | DRG 300 ==
LOC: MED 01:22 → MTU 05:53
PROVIDERS: ADMIT Family Medicine; ATTEND Family Medicine
DX: I82.431 Acute embolism and thrombosis of right popliteal vein (principal); E44.1 Mild protein-calorie malnutrition; I50.9 Heart failure, unspecified; F20.9 Schizophrenia, unspecified; D64.9 Anemia, unspecified; E11.9 Type 2 diabetes mellitus without complications; E78.5 Hyperlipidemia, unspecified; G40.909 Epilepsy, unspecified, not intractable, without status epilepticus; I10 Essential (primary) hypertension; E66.9 Obesity, unspecified; Z68.32 Body mass index [BMI] 32.0-32.9, adult; Z88.6 Allergy status to analgesic agent; Z88.0 Allergy status to penicillin; Z88.8 Allergy status to other drugs, medicaments and biological substances; Z53.21 Procedure and treatment not carried out due to patient leaving prior to being seen by health care provider; Z91.041 Radiographic dye allergy status; Z85.46 Personal history of malignant neoplasm of prostate; Z86.73 Personal history of transient ischemic attack (TIA), and cerebral infarction without residual deficits; Z86.711 Personal history of pulmonary embolism; Z59.0 Homelessness; F17.210 Nicotine dependence, cigarettes, uncomplicated; Z71.3 Dietary counseling and surveillance; Z95.828 Presence of other vascular implants and grafts; I25.2 Old myocardial infarction
CPT/HCPCS: 36415; 71010; 80048; 80053; 80305; 81001; 82150; 83036; 83690; 83735; 83880; 84100; 84436; 84439; 84443; 84479; 84484; 85025; 85379; 85610; 85730; 87081; 93005; 93971; 96372; 96374; 96375; 96376; 99285; C9113; J1200; J1644; J1650; J2270; J2405; J7030; Q0092; Q0163

== ENCOUNTER 2017-05-18 19:33 | Inpatient (IN) | payer OTHER ==
[~2017-05-18] VITALS: Ht 193 cm; Wt 126.6 kg
[~2017-05-18 19:33] MED LIST changes: -ABI10 PO; -ACET-8386 PO; -ALPR0.253 PO; -CARV6.25 PO; -DOCU-299 PO; -GLU500 PO; +NIFE30TE5 PO; +POTA10TE30 PO; -[UNRECOGNIZED DRUG - CODE] SUBQ
[2017-05-18 19:37] VITALS: BP 156/93
--- NOTE | 2017-05-18 19:45 | NUR ---
PT AMBULUATED TO BED 10
[2017-05-18] MEDS ORDERED: NITROGLYCERIN 2% 1 GM PKT TP ONE (19:55)
[2017-05-18] MEDS ORDERED: MORPHINE SULFATE 4 MG/ML SYR IVP ONE (19:55)
--- NOTE | 2017-05-18 19:59 | NUR ---
PATIENT PRESENTS TO ED C/O CHEST PAIN. PT STATES CHEST PAIN FILLS LIKE SQUEEZE IN THE MIDDLE, 11/06. MED HX: DM/HTM/SEIZURES/STROKE/HEART ATTACK/SICKLE CELL. AAOX4 WITH EVEN AND STEADY GAIT;PT DENIES ANY FEVER, PATIENT POSITIONED FOR COMFORT; HOB ELEVATED; BEDRAILS UP X2; BED DOWN. ER MD MADE AWARE OF PT STATUS.
[2017-05-18] MEDS ORDERED: CLOPIDOGREL 75 MG TAB PO ONE (20:15)
[2017-05-18] MEDS ORDERED: LIDOCAINE 2% 1000 MG/50 ML VIAL INJ ONE (21:51)
[2017-05-18 22:18] LABS: BASOPHILS # (AUTO) 0.3 K/uL (0.00-0.22); EOSINOPHILS # (AUTO) 0.2 K/uL (0-0.4); EOSINOPHILS % (AUTO) 2.3 % (0.0-4.0); HEMATOCRIT 31.9 % (36-52); HEMOGLOBIN 10.1 g/dL (12.0-18.0); LYMPHOCYTES # (AUTO) 1.8 K/uL (2.0-11.5); LYMPHOCYTES % (AUTO) 25.1 % (20.5-51.1); MEAN CORPUSCULAR HEMOGLOBIN 24 pg (27-31); MEAN CORPUSCULAR HGB CONC 32 g/dL (33-37); MEAN CORPUSCULAR VOLUME 75.6 fL (80-94); MONOCYTES # (AUTO) 0.6 K/uL (0.8-1.0); MONOCYTES % (AUTO) 8.7 % (1.7-9.3); NEUTROPHILS # (AUTO) 4.1 K/uL (1.8-7.7); PLATELET COUNT (AUTO) 174 K/uL (140-450); RED BLOOD CELL COUNT(AUTO) 4.22 MIL/uL (4.20-6.10); RED CELL DISTRIBUTION WIDTH 17.5 % (11.6-13.7)
[2017-05-18 22:20] LABS: NEUTROPHILS % (AUTO) 63.9 % (42.2-75.2)
[2017-05-18 22:35] LABS: ANION GAP 11.9 (8-16); CARBON DIOXIDE 28.3 mmol/L (21-32); CREATININE 1.1 mg/dL (0.7-1.3); POTASSIUM 4.2 mmol/L (3.5-5.1)
[2017-05-18 22:37] LABS: CHOL/HDL RATIO 4.1 (1-4.5)
[2017-05-18 22:38] LABS: ALBUMIN 3.3 g/dL (3.4-5.0); TOTAL BILIRUBIN 0.2 mg/dL (0.0-1.0)
[2017-05-18 22:47] LABS: CREATINE KINASE MB 3.1 ng/mL (0-3.6)
--- NOTE | 2017-05-18 23:05 | NUR ---
PT AMB W/O ASST TO [facility].
[2017-05-19] MEDS ORDERED: ONDANSETRON 4 MG/2 ML VIAL IM/IVP PRN (00:10)
[2017-05-19] MEDS ORDERED: DOCUSATE SODIUM 100 MG GELCAP PO PRN (00:10)
--- NOTE | 2017-05-19 00:20 | NUR ---
Patient will be admitted to care of DR BAKER. Admited to TELE FLOOR. Will go to room 119A. Belongings list completed. Report to JOSÉ SUNSHINE.
--- NOTE | 2017-05-19 00:25 | NUR ---
PATIENT ADMITTED TO THE UNIT FROM ER. PATIENT IS AWAKE AND ALERT. NO SIGNS AND SYMPTOMS OF DISTRESS NOTED. PATIENT IS ON ROOM AIR. VITAL SIGNS TAKEN, MRSA SPECIMEN TAKEN. CENTRAL LINE NOTED ON RIGHT SUBCLAVIAN. PLAN OF CARE DISCUSSED WITH PATIENT. PATIENT VERBALIZED UNDERSTANDING. SEIZURE PRECAUTIONS IN PLACE. BED IN LOWEST POSITION, SIDE RAILS UP. WILL CONTINUE TO MONITOR.
[2017-05-19 00:47] LABS: CHOL/HDL RATIO 4.1 (1-4.5); HDL CHOLESTEROL 47 mg/dL (40-60); LDL (CALC) 129 mg/dL (60-100); MAGNESIUM 1.9 mg/dL (1.8-2.4); PHOSPHORUS 3.4 mg/dL (2.5-4.9); THYROID STIMULATING HORMONE 2.16 uIU/mL (0.34-3.74); TRIGLYCERIDES 90 mg/dL (30-150)
[2017-05-19] MEDS ORDERED: LISINOPRIL 5 MG TAB PO SCH (01:00)
[2017-05-19] MEDS ORDERED: METOPROLOL 25 MG TAB PO SCH ×2 (01:00→09:00)
[2017-05-19] MEDS: NACL 0.9% 1,000 ML IV SCH ×3 (01:01→16:18)
[2017-05-19 01:02] LABS: PROTHROMBIN TIME 11.6 secs (10.8-13.4)
[2017-05-19] MEDS ORDERED: QUEtiapine FUMARATE 100 MG TAB PO SCH (01:10)
--- NOTE | 2017-05-19 01:30 | NUR ---
PATIENT SEEN BY DR. CORTEZ
[2017-05-19] MEDS: MORPHINE SULFATE 2 MG/ML SYR IVP PRN ×3 (01:44→17:19)
[2017-05-19] MEDS ORDERED: INSULIN LISPRO SLIDING SCALE 100 UNITS/ML VIAL SUBQ PRN (01:45)
[2017-05-19] MEDS ORDERED: DEXTROSE 50% 50 ML SYR IVP PRN (01:45)
--- NOTE | 2017-05-19 02:49 | NUR ---
PT IS ASLEEP COMFORTABLY. ASSESSMENT DONE. NO HHN TX NEEDED. NO SOB OR DISTRESS NOTED. PT IS ON ROOM AIR WITH SPO2 OF 99%. WILL CONTINUE TO MONITOR.
[2017-05-19 03:11] VITALS: BP 130/89
--- NOTE | 2017-05-19 04:00 | NUR ---
CHECKED ON PATIENT. PATIENT IS ASLEEP. NO SIGNS AND SYMPTOMS OF DISTRESS NOTED. BREATHING EVEN AND UNLABORED. WILL CONTINUE TO MONITOR.
[2017-05-19] MEDS: BLOOD GLUCOSE MONITORING 1 DEV DEV FS SCH ×4 (06:35→21:03)
[2017-05-19] MEDS ORDERED: ALBUTEROL SULFATE/IPRATROPIU 3 ML SOL IH PRN (07:00)
--- NOTE | 2017-05-19 07:15 | NUR ---
RECEIVED PATIENT REPORT AT BEDSIDE. PATIENT ASLEEP BUT AROUSABLE. PATIENT IS ON ROOM AIR. CENTRAL LINE NOTED ON RIGHT SUBCLAVIAN TRIPLE LUMEN, PATENT WITH GOOD BLOOD RETURN. PATIENT ON TELE MONITORING. SEIZURE PRECAUTIONS IN PLACE. BED IN LOWEST POSITION, SIDE RAILS UP. WILL CONTINUE TO MONITOR.
--- NOTE | 2017-05-19 07:31 | NUR ---
PATIENT REPORT REPORT GIVEN TO MORNING NURSE AT BEDSIDE FOR CONTINUITY OF CARE. PATIENT IS IN STABLE CONDITION
[2017-05-19 07:43] LABS: BASOPHILS # (AUTO) 0.2 K/uL (0.00-0.22); BASOPHILS % (AUTO) 3.6 % (0.0-2.0); EOSINOPHILS # (AUTO) 0.1 K/uL (0-0.4); HEMATOCRIT 29.4 % (36-52); HEMOGLOBIN 9.3 g/dL (12.0-18.0); LYMPHOCYTES # (AUTO) 1.5 K/uL (2.0-11.5); LYMPHOCYTES % (AUTO) 32.3 % (20.5-51.1); MEAN CORPUSCULAR HEMOGLOBIN 24 pg (27-31); MEAN CORPUSCULAR HGB CONC 32 g/dL (33-37); MEAN CORPUSCULAR VOLUME 75.8 fL (80-94); MONOCYTES # (AUTO) 0.4 K/uL (0.8-1.0); NEUTROPHILS # (AUTO) 2.3 K/uL (1.8-7.7); NEUTROPHILS % (AUTO) 53.1 % (42.2-75.2); PLATELET COUNT (AUTO) 147 K/uL (140-450); RED BLOOD CELL COUNT(AUTO) 3.88 MIL/uL (4.20-6.10); RED CELL DISTRIBUTION WIDTH 17.8 % (11.6-13.7); WHITE BLOOD COUNT (AUTO) 4.5 K/uL (4.8-10.8)
[2017-05-19 07:51] LABS: ANION GAP 8.6 (8-16); CARBON DIOXIDE 29.2 mmol/L (21-32); CREATININE 1.1 mg/dL (0.7-1.3); POTASSIUM 3.8 mmol/L (3.5-5.1)
[2017-05-19 08:00] VITALS: BP 99/73
[2017-05-19] MEDS ORDERED: hePARIN / DEXT 5% PREMIX 250 ML IV SCH ×4 (08:40→09:15)
[2017-05-19] MEDS ORDERED: HEPARIN PER PHARMACY MC PRN ×2 (08:40→08:50)
[2017-05-19] MEDS: LISINOPRIL 5 MG TAB PO SCH (09:00)
[2017-05-19] MEDS: NIFEdipine 30 MG TABER PO SCH (09:00)
[2017-05-19] MEDS: FERROUS SULFATE 325 MG TABEC PO SCH ×2 (09:07→17:19)
[2017-05-19] MEDS: PHENYTOIN 100 MG CAPER PO SCH ×3 (09:07→17:19)
[2017-05-19] MEDS: ATORVASTATIN 20 MG TAB PO SCH (09:08)
[2017-05-19] MEDS: FUROSEMIDE 40 MG TAB PO SCH (09:08)
[2017-05-19] MEDS: CLOPIDOGREL 75 MG TAB PO SCH (09:08)
[2017-05-19] MEDS: hePARIN / DEXT 5% PREMIX 250 ML IV SCH ×2 (10:15→17:56)
--- NOTE | 2017-05-19 10:17 | NUR ---
HEPARIN DRIP STARTED
--- NOTE | 2017-05-19 10:27 | NUR ---
PATIENT HAS BEEN SCREENED AND CATEGORIZED MODERATE NUTRITION RISK. PATIENT WILL BE SEEN WITHIN 3-5 DAYS OF ADMISSION. 05/21/17 - 05/23/[address]
[2017-05-19 12:00] VITALS: BP 105/64
[2017-05-19 16:00] VITALS: BP 124/75
--- NOTE | 2017-05-19 16:30 | NUR ---
FAXED INITIAL REVIEW TO [facility] [phone] PHONE [facility] [phone]
[2017-05-19 17:24] LABS: PROTHROMBIN TIME 11.9 secs (10.8-13.4)
--- NOTE | 2017-05-19 17:58 | NUR ---
PTT IS 84.4 PER HEPARIN PROTOCOL REDUCE DRIP BY 200 UNITS/HR WHICH IS 1600UNITS/HR = 16 MLS/HR.
--- NOTE | 2017-05-19 19:10 | NUR ---
GAVE PATIENT REPORT AT BEDSIDE, PATIENT ENDORSED IN STABLE CONDITION.
--- NOTE | 2017-05-19 19:11 | NUR ---
PATIENT REPORT RECEIVED FROM MORNING NURSE AT BEDSIDE. PATIENT IS ASLEEP, BUT EASY TO AWAKEN. NO SIGNS AND SYMPTOMS OF DISTRESS NOTED. BREATHING EVEN AND UNLABORED. RIGHT SUBCLAVIAN TRIPLE LUMEN CENTRAL LINE NOTED, WITH IVF AND HEPARIN DRIP RUNNING. BED IN LOWEST POSITION, SIDE RAILS UP AND CALL LIGHT WITHIN REACH. WILL CONTINUE TO MONITOR.
[2017-05-19 20:00] VITALS: BP 137/82
[2017-05-19] MEDS: QUEtiapine FUMARATE 100 MG TAB PO SCH (21:10)
--- NOTE | 2017-05-19 21:30 | NUR ---
PATIENT SAID THAT HE ACCIDENTALLY WET HIS BED. SHEETS, BLANKETS, PADS AND GOWN CHANGED. PATIENT TOLERATED WELL. WILL CONTINUE TO MONITOR.
--- NOTE | 2017-05-19 22:06 | NUR ---
CHECKED ON PATIENT. PATIENT ASLEEP. BREATHING EVEN AND UNLABORED. WILL CONTINUE TO MONITOR.
--- NOTE | 2017-05-19 23:00 | NUR ---
CHECKED ON PATIENT. PATIENT IS ASLEEP. NO SIGNS AND SYMPTOMS OF DISTRESS NOTED. BREATHING EVEN AND UNLABORED. WILL CONTINUE TO MONITOR.
[2017-05-20] VITALS: BP 120/77
[2017-05-20] MEDS: hePARIN / DEXT 5% PREMIX 250 ML IV SCH ×2 (01:03→10:19)
--- NOTE | 2017-05-20 01:18 | NUR ---
SPOKE WITH LAB TO CLARIFY PTT RESULT OF 23.2 FOR 05/19 AT 22:01. LAB STATED THAT IT WAS DOCUMENTED AT THE WRONG TIME, THE 23.2 PTT IS FOR 05/19 1001, NOT 2201.
--- NOTE | 2017-05-20 01:36 | NUR ---
PATIENT'S PTT 93. PER HEPARIN PROTOCOL, WILL HOLD HEPARIN DRIP FOR 1 HOUR, THEN REDUCE BY 300 UNITS/HR
[2017-05-20] MEDS: NACL 0.9% 1,000 ML IV SCH ×4 (02:00→23:01)
--- NOTE | 2017-05-20 02:37 | NUR ---
HEPARIN DRIP RESTARTED. RATE REDUCED BY 300 UNITS/HR. HEPARIN DRIP NOW RUNNING AT 1300 UNITS/HR.
[2017-05-20 04:00] VITALS: BP 130/82
--- NOTE | 2017-05-20 04:00 | NUR ---
CHECKED ON PATIENT. PATIENT IS ASLEEP. NO SIGNS AND SYMPTOMS OF DISTRESS NOTED. WILL CONTINUE TO MONITOR
[2017-05-20] MEDS: MORPHINE SULFATE 2 MG/ML SYR IVP PRN ×2 (05:43→09:52)
[2017-05-20] MEDS: BLOOD GLUCOSE MONITORING 1 DEV DEV FS SCH ×4 (06:32→20:55)
--- NOTE | 2017-05-20 07:26 | NUR ---
PATIENT REPORT GIVEN TO MORNING NURSE AT BEDSIDE FOR CONTINUITY OF CARE. PATIENT IS IN STABLE CONDITION.
--- NOTE | 2017-05-20 07:27 | NUR ---
RECEIVED REPORT FROM THE MEDICAL LIAISON NURSE AT BEDSIDE FOR CONTINUITY OF CARE. PT IS SLEEPING. IV ON R SUBCLAVIAN TRIPLE LUMEN. NS INFUSING AT 130ML/HR AND HEPARIN DRIP INFUSING AT 1300U. NO SIGNS OF DISTRESS. CALL LIGHT WITHIN REACH. BED IN LOWEST POSITION, SIDE RAILS UP. WILL CONTINUE TO MONITOR PT.
[2017-05-20 07:29] LABS: BASOPHILS # (AUTO) 0.3 K/uL (0.00-0.22); BASOPHILS % (AUTO) 4.9 % (0.0-2.0); EOSINOPHILS # (AUTO) 0.1 K/uL (0-0.4); EOSINOPHILS % (AUTO) 2.7 % (0.0-4.0); HEMATOCRIT 29.6 % (36-52); HEMOGLOBIN 9.6 g/dL (12.0-18.0); LYMPHOCYTES # (AUTO) 1.8 K/uL (2.0-11.5); LYMPHOCYTES % (AUTO) 33.5 % (20.5-51.1); MEAN CORPUSCULAR HEMOGLOBIN 25 pg (27-31); MEAN CORPUSCULAR HGB CONC 33 g/dL (33-37); MEAN CORPUSCULAR VOLUME 75.2 fL (80-94); MONOCYTES # (AUTO) 0.4 K/uL (0.8-1.0); MONOCYTES % (AUTO) 8.1 % (1.7-9.3); NEUTROPHILS # (AUTO) 2.7 K/uL (1.8-7.7); NEUTROPHILS % (AUTO) 50.8 % (42.2-75.2); PLATELET COUNT (AUTO) 157 K/uL (140-450); RED BLOOD CELL COUNT(AUTO) 3.94 MIL/uL (4.20-6.10); RED CELL DISTRIBUTION WIDTH 18.1 % (11.6-13.7); WHITE BLOOD COUNT (AUTO) 5.3 K/uL (4.8-10.8)
[2017-05-20 07:42] LABS: ANION GAP 9.9 (8-16); CARBON DIOXIDE 29.2 mmol/L (21-32); CREATININE 1.1 mg/dL (0.7-1.3); POTASSIUM 4.1 mmol/L (3.5-5.1)
[2017-05-20 08:00] VITALS: BP 134/84
[2017-05-20 08:17] LABS: MAGNESIUM 1.7 mg/dL (1.8-2.4); PHOSPHORUS 3.3 mg/dL (2.5-4.9)
[2017-05-20 08:25] LABS: T4 (THYROXINE) 5.9 ug/dL (4.5-12.0)
[2017-05-20] MEDS: LISINOPRIL 5 MG TAB PO SCH (09:00)
[2017-05-20] MEDS: FUROSEMIDE 40 MG TAB PO SCH (09:00)
[2017-05-20] MEDS: CLOPIDOGREL 75 MG TAB PO SCH (09:01)
[2017-05-20] MEDS: ATORVASTATIN 20 MG TAB PO SCH (09:01)
[2017-05-20] MEDS: NIFEdipine 30 MG TABER PO SCH (09:01)
[2017-05-20] MEDS: PHENYTOIN 100 MG CAPER PO SCH ×3 (09:01→16:22)
[2017-05-20] MEDS: FERROUS SULFATE 325 MG TABEC PO SCH ×2 (09:02→16:22)
--- NOTE | 2017-05-20 09:07 | NUR ---
ADMINISTERED MORNING SCHEDULED MEDS W/ OJ . ADDED COLACE. PER PT, NO BM SINCE 05/18. ASKED FOR PAIN MED. NOT TIME YET. NOTIFIED HIM I WILL BE BACK WITH PAIN MEDS IN ABOUT 30 MIN. PT TOLERATED WELL. WILL CONTINUE TO MONITOR PT. Addendum: 05/20/17 at 0910 by Jagruti Ordonez RN AWAITING PTT RESULTS. BLOOD DRAWN THIS MORNING FOR TITRATION OF HEPARIN.
--- NOTE | 2017-05-20 10:00 | NUR ---
ADMINISTERED PAIN MED REQUESTED. PT TOLERATED WELL. EMPTIED HIS URINAL 300ML CLEAR YELLOW URINE. WANTED TO SLEEP. ASKED FOR THE DOOR SHUT. WILL DO REQUESTED.
--- NOTE | 2017-05-20 10:19 | NUR ---
LAB CALLED WITH PTT 51.1. PER PROTOCOL. NO CHANGE NOTED. WILL CONTINUE TO MONITOR PT.
[2017-05-20 10:24] LABS: PROTHROMBIN TIME 12.2 secs (10.8-13.4)
--- NOTE | 2017-05-20 10:30 | NUR ---
WANTED TO GO TO THE BATHROOM. PER PT, BED IS WET. ASSISTED PT UP TO THE BATHROOM. CHANGED LINENS. PT BACK IN BED. STEADY GAIT. PER PT, PT IS HUNGRY. WOULD LIKE A SANDWICH AND JUICE. WILL CALL [facility] TO BRING UP FOOD. WILL CONTINUE TO MONITOR PT.
--- NOTE | 2017-05-20 11:15 | NUR ---
SANDWICH AND JUICE FINALLY HERE FROM [facility]. EMPTIED ANOTHER 300 ML PALE YELLOW URINE. WILL CONTINUE TO MONITOR PT.
[2017-05-20 12:00] VITALS: BP 109/76
--- NOTE | 2017-05-20 12:15 | NUR ---
COLLECTED URINE SAMPLE. SENT TO LAB.
[2017-05-20 12:38] LABS: APPEARANCE,URINE CLEAR (CLEAR); BILIRUBIN,URINE NEGATIVE (NEGATIVE); BLOOD, URINE NEGATIVE (NEGATIVE); COLOR,URINE YELLOW (YELLOW); LEUKOCYTE ESTERASE ,URINE NEGATIVE (NEGATIVE); NITRITE, URINE NEGATIVE (NEGATIVE); UGLUCOSE NEGATIVE (NEGATIVE)
--- NOTE | 2017-05-20 12:40 | NUR ---
ADMINISTERED DILANTIN. PT TOLERATED WELL. REQUESTED ADDITIONAL CUP OF COFFEE. GIVEN. WANTED A PILLOW FOR HIS SWOLLEN FEET. GIVEN. MET ALL NEEDS. WILL CONTINUE TO MONITOR PT.
[2017-05-20 13:07] LABS: BARBITURATE, URINE NEG. ng/ml (NEG <=200); BENZODIAZEPINE, URINE NEG. ng/mL (NEG <=200); CANNABINOID, URINE NEG. ng/mL (NEG <=50); COCAINE, URINE NEG. ng/mL (NEG <=300); OPIATE, URINE NEG. ng/mL (NEG <=2000); PHENCYCLIDINE SCREEN,URINE NEG. ng/mL (NEG <=25)
--- NOTE | 2017-05-20 13:20 | NUR ---
PT NEEDED ASSISTANCE TO GO TO THE BATHROOM. ASSISTED PT TO AND BACK. NOW SITTING IN A CHAIR. PT REQUESTING A SANDWICH. CALLED [facility]. WILL CONTINUE TO MONITOR PT.
--- NOTE | 2017-05-20 14:00 | NUR ---
REQUESTED PAIN MED. NOTIFIED PT THAT MD HAD D/C'D THE MORPHINE. PT WAS UPSET. NOTIFIED DR DIMAS. MD AWARE. WILL CONTINUE TO MONITOR PT.
--- NOTE | 2017-05-20 14:19 | NUR ---
CHECKED ON PT. PT SLEEPING. LEFT THE [employer] SANDWICH ON THE SIDE TABLE FOR LATER. NO SIGNS OF DISTRESS. WILL CONTINUE TO MONITOR PT.
[2017-05-20] MEDS ORDERED: KETOROLAC 30 MG/ML VIAL IVP SCH (15:15)
--- NOTE | 2017-05-20 15:40 | NUR ---
PHYSICAL THERAPY CO-SIGN The Physical Therapy Progress Notes documented by Operation Specialist have been reviewed. I concur with the documentation of this TURNING MACHINE OPERATOR. Plan: continue PT as per plan of care if he remains in this hospital. Patient is making good and steady progress with PT. Reviewed/Co-Signed by: Ramya Mar,PT Documentation Done by: Montserrat Orozco TURNING MACHINE OPERATOR Addendum: 05/20/17 at 1543 by Ramya Mar PT Amended: Links added.
[2017-05-20 16:00] VITALS: BP 105/70
--- NOTE | 2017-05-20 16:34 | NUR ---
PT REFUSED BLOOD SUGAR CHECK. DEMANDED THAT HE WAS DIABETIC AND WAS PRESCRIBED METFORMIN BUT WHEN HE CHECKS HIS BLOOD SUGAR IT IS ALWAYS NORMAL. HE SAID HE STOPPED TAKING THE METFORMIN WELL. ADMINISTERED DILANTIN AND IRON AND TORADOL ORDERED. ASKED PT IF HE HAS ALLERGIES TO ASPIRIN. HE SAID YES. I TOLD HIM TORADOL HAS ASPIRIN IN IT. HE SAID HE HAD TORADOL MANY TIMES BEFORE AND NOTHING HAPPENED. NOTIFIED PT IF AFTER HE GETS THE TORADOL HE FEELS ANYTHING DIFFERENT, THROAT CLOSING UP, HIVES, ANYTHING OUT OF NORMAL TO NOTIFY ME. HE VERBALIZED UNDERSTANDING. PT TOLERATED WELL. REQUESTED SOME CRACKERS, MILK AND SUGAR. GIVEN. WILL CONTINUE TO MONITOR PT CLOSELY.
--- NOTE | 2017-05-20 17:55 | NUR ---
HEPARIN D/C'D ORDERED. PTT RESULTS 42.5. PT NOW EATING DINNER. EMPTIED ANOTHER 300ML URINE.
--- NOTE | 2017-05-20 19:20 | NUR ---
ENDORSED PT TO THE PLANT SPECIALIST NURSE AT BEDSIDE FOR CONTINUITY OF CARE. PT IN SLEEPING. IN STABLE CONDITION.
--- NOTE | 2017-05-20 19:21 | NUR ---
RECEIVED BEDSIDE REPORT FROM DAY SHIFT NURSE ALISON RN, PT STABLE, NO DISTRESS NOTED, CENTRAL LINE SUBCLAVIAN TRIPLE LUMEN TO THE R CHEST, PATENT, RUNNING NS @ 130ML/HR, INFUSING WELL, INITIAL ASSESSMENT DONE, ALL SAFETY PRECAUTION MET, WILL CONTINUE TO MONITOR.
--- NOTE | 2017-05-20 19:32 | NUR ---
PT REFUSED O2 SAT AND RESPIRATORY ASSESSMENT, STATED HE SAO2 IS 98% AND HE WAS SLEEPING AND NOT TO WAKE HIM UP
[2017-05-20 20:00] VITALS: BP 117/82
--- NOTE | 2017-05-20 20:15 | NUR ---
PT AMBULATED AROUND UNITX2, TOLERATED WELL, NO DISTRESS NOTED. WENT BACK TO BED, CALL LIGHT WITHIN REACH, WILL CONTINUE TO MONITOR.
[2017-05-20] MEDS: QUEtiapine FUMARATE 100 MG TAB PO SCH (20:29)
--- NOTE | 2017-05-20 20:35 | NUR ---
DUE MEDICATION GIVEN, PT TOLERATED WELL, NO DISTRESS NOTED, CALL LIGHT WITHIN REACH, WILL CONTINUE TO MONITOR.
--- NOTE | 2017-05-20 23:52 | NUR ---
CHECKED ON PT, PT SLEEPING, NO DISTRESS NOTED, CALL LIGHT WITHIN REACH, WILL CONTINUE TO MONITOR.
[2017-05-21] VITALS: BP 110/70
--- NOTE | 2017-05-21 02:18 | NUR ---
CHECKED ON PT, PT SLEEPING, NO DISTRESS NOTED, CALL LIGHT WITHIN REACH, WILL CONTINUE TO MONITOR
[2017-05-21 04:00] VITALS: BP 117/80
--- NOTE | 2017-05-21 04:10 | NUR ---
CHECKED ON PT, PT SLEEPING, NO DISTRESS NOTED, CALL LIGHT WITHIN REACH, WILL CONTINUE TO MONITOR
[2017-05-21] MEDS: NACL 0.9% 1,000 ML IV SCH (04:29)
--- NOTE | 2017-05-21 06:41 | NUR ---
PT REFUSED BLOOD SUGAR CHECK, STATING THAT HE IS NO DIABETIC AND HE ALREADY TALKED TO THE DR ABOUT IT.
[2017-05-21] MEDS: BLOOD GLUCOSE MONITORING 1 DEV DEV FS SCH (06:42)
--- NOTE | 2017-05-21 07:22 | NUR ---
PT REFUSED RESPIRATORY ASSESSMENT AND A SP02 MONITOR. RN SAID HE HAS BEEN SATTING FINE.
--- NOTE | 2017-05-21 07:24 | NUR ---
ENDORSED PLAN OF CARE TO DAY SHIFT NURSE ALISON SUNSHINE, FOR CONTINUOUS OF CARE, PT STABLE, NO DISTRESS NOTED, CALL LIGHT WITHIN REACH.
--- NOTE | 2017-05-21 07:26 | NUR ---
RECEIVED REPORT FROM CUFF TURNER NURSE. PATIENT IS CURRENTLY SLEEPING. NO S/S OF DISTRESS ON ROOM AIR. PICC LINE ON L CHEST, 3 LUMENS, INFUSING NS AT 130ML/HR. PICC LINE IS CLEAN, DRY AND INTACT. SKIN IS INTACT. URINAL AT BEDSIDE. PATIENT HAS SEIZURE PRECAUTIONS AND FALL RISK PRECAUTIONS IN PLACE. ALLERGY BRACELET IN PLACE. BED IN LOW POSITION, CALL LIGHT WITHIN REACH. WILL CONTINUE TO MONITOR.
[2017-05-21 07:36] LABS: ANION GAP 9.3 (8-16); CARBON DIOXIDE 30.4 mmol/L (21-32); CREATININE 1.1 mg/dL (0.7-1.3); MAGNESIUM 1.6 mg/dL (1.8-2.4); PHOSPHORUS 3.5 mg/dL (2.5-4.9); POTASSIUM 3.7 mmol/L (3.5-5.1)
--- NOTE | 2017-05-21 07:50 | NUR ---
PATIENT REFUSED TO KEEP GENERAL FOUNDRY WORKER ON. VITAL SIGNS WITHIN NORMAL RANGE. DENIES PAIN AT THIS TIME. DR AT BEDSIDE. WILL CONTINUE TO MONITOR PATIENT.
[2017-05-21 08:00] VITALS: BP 151/89
[2017-05-21 08:01] LABS: BASOPHILS # (AUTO) 0.2 K/uL (0.00-0.22); BASOPHILS % (AUTO) 4.6 % (0.0-2.0); EOSINOPHILS # (AUTO) 0.2 K/uL (0-0.4); EOSINOPHILS % (AUTO) 3.1 % (0.0-4.0); HEMATOCRIT 31.3 % (36-52); HEMOGLOBIN 9.8 g/dL (12.0-18.0); LYMPHOCYTES # (AUTO) 1.3 K/uL (2.0-11.5); LYMPHOCYTES % (AUTO) 26.9 % (20.5-51.1); MEAN CORPUSCULAR HEMOGLOBIN 24 pg (27-31); MEAN CORPUSCULAR HGB CONC 31 g/dL (33-37); MEAN CORPUSCULAR VOLUME 76.4 fL (80-94); MONOCYTES # (AUTO) 0.4 K/uL (0.8-1.0); MONOCYTES % (AUTO) 7.7 % (1.7-9.3); NEUTROPHILS # (AUTO) 2.7 K/uL (1.8-7.7); NEUTROPHILS % (AUTO) 57.7 % (42.2-75.2); PLATELET COUNT (AUTO) 177 K/uL (140-450); RED CELL DISTRIBUTION WIDTH 18.1 % (11.6-13.7); WHITE BLOOD COUNT (AUTO) 4.8 K/uL (4.8-10.8)
[2017-05-21] MEDS: FERROUS SULFATE 325 MG TABEC PO SCH (08:48)
[2017-05-21] MEDS: LISINOPRIL 5 MG TAB PO SCH (08:48)
[2017-05-21] MEDS: ATORVASTATIN 20 MG TAB PO SCH (08:49)
[2017-05-21] MEDS: CLOPIDOGREL 75 MG TAB PO SCH (08:49)
[2017-05-21] MEDS: NIFEdipine 30 MG TABER PO SCH (08:49)
[2017-05-21] MEDS: FUROSEMIDE 40 MG TAB PO SCH ×2 (08:49→08:54)
[2017-05-21] MEDS: PHENYTOIN 100 MG CAPER PO SCH (08:50)
--- NOTE | 2017-05-21 09:05 | NUR ---
MORNING MEDS GIVEN. PATIENT TOLERATED MEDS WELL. PATIENT REFUSED LASIX AND HEPARIN. CENTRAL LINE IS CLEAN, DRY, AND INTACT. WILL CONTINUE TO MONITOR. CALL LIGHT WITHIN REACH. BED IN LOW POSITION.
[2017-05-21] MEDS ORDERED: MAGNESIUM OXIDE 400 MG TAB PO SCH (10:22)
[2017-05-21] MEDS ORDERED: LISI-424 PO (10:25)
[2017-05-21] MEDS ORDERED: ASCO500T45 PO (10:25)
[2017-05-21] MEDS ORDERED: FERR-18 PO (10:25)
[2017-05-21] MEDS ORDERED: CLOP75TA26 PO (10:25)
[2017-05-21] MEDS ORDERED: DOCU-299 PO (10:25)
--- NOTE | 2017-05-21 10:58 | NUR ---
DISCHARGE ORDER IN PLACE. NOTIFIED PATIENT. PATIENT REQUESTED TOWELS TO CLEAN UP BEFORE DISCHARGE. WILL PROCESS DC. WILL CONTINUE TO MONITOR PATIENT.
--- NOTE | 2017-05-21 11:15 | NUR ---
REMOVED CENTRAL LINE. PATIENT TOLERATED WELL. NO BLEEDING NOTED.
--- NOTE | 2017-05-21 11:30 | NUR ---
PATIENT DISCHARGED. GAVE BUS PASS AND PRESCRIPTIONS. SIGNED HALF DISCHARGED PAPER, REFUSED TO SIGN THE REST. REFUSED ESCORT. PATIENT WALKED OUT.
== END 2017-05-21 11:30 | disposition home or self-care (01) | DRG 203 ==
LOC: MED 19:33 → MTU 05-19 00:07
PROVIDERS: ADMIT Student in an Organized Health Care Education/Training Program; ATTEND Student in an Organized Health Care Education/Training Program
PROC: 02HV33Z Insertion of Infusion Device into Superior Vena Cava, Percutaneous Approach (ICD-10-PCS; principal; 2017-05-18)
DX: M94.0 Chondrocostal junction syndrome [Tietze] (principal); D68.59 Other primary thrombophilia; E11.22 Type 2 diabetes mellitus with diabetic chronic kidney disease; E44.0 Moderate protein-calorie malnutrition; I50.9 Heart failure, unspecified; I13.0 Hypertensive heart and chronic kidney disease with heart failure and stage 1 through stage 4 chronic kidney disease, or unspecified chronic kidney disease; E11.65 Type 2 diabetes mellitus with hyperglycemia; E11.69 Type 2 diabetes mellitus with other specified complication; I82.532 Chronic embolism and thrombosis of left popliteal vein; E83.42 Hypomagnesemia; E78.5 Hyperlipidemia, unspecified; D50.9 Iron deficiency anemia, unspecified; E78.00 Pure hypercholesterolemia, unspecified; F39 Unspecified mood [affective] disorder; F17.210 Nicotine dependence, cigarettes, uncomplicated; G40.909 Epilepsy, unspecified, not intractable, without status epilepticus; N18.9 Chronic kidney disease, unspecified; J45.909 Unspecified asthma, uncomplicated; Z86.73 Personal history of transient ischemic attack (TIA), and cerebral infarction without residual deficits; Z88.5 Allergy status to narcotic agent; Z88.0 Allergy status to penicillin; Z88.8 Allergy status to other drugs, medicaments and biological substances; Z88.4 Allergy status to anesthetic agent; Z91.041 Radiographic dye allergy status; Z85.46 Personal history of malignant neoplasm of prostate; I25.2 Old myocardial infarction; Z86.711 Personal history of pulmonary embolism; Z95.5 Presence of coronary angioplasty implant and graft; Z82.49 Family history of ischemic heart disease and other diseases of the circulatory system; Z68.34 Body mass index [BMI] 34.0-34.9, adult; Z79.4 Long term (current) use of insulin
CPT/HCPCS: 36415; 71045; 74018; 80048; 80053; 80185; 80305; 81003; 82140; 82550; 82553; 82948; 83036; 83540; 83735; 83880; 84100; 84436; 84443; 84479; 84484; 85025; 85379; 85610; 85730; 87081; 93005; 93925; 93970; 96374; 97116; 97140; 97530; 99291; J1644; J1815; J1885; J2001; J2270; J7030; Q0092

== ENCOUNTER 2017-10-06 12:22 | Inpatient (IN) | payer OTHER ==
[~2017-10-06] VITALS: Ht 193 cm; Wt 125.2 kg
[~2017-10-06 12:22] MED LIST changes: +ASCO500T45 PO; +CLOP75TA26 PO; +DOCU-299 PO; +FERR-18 PO; +LISI-424 PO
[2017-10-06 12:27] VITALS: BP 125/69
--- NOTE | 2017-10-06 12:33 | NUR ---
PT TO BED 7 BY PERSONAL POWER WHEELCHAIR
--- NOTE | 2017-10-06 12:46 | NUR ---
PT. CAME INTO THE ED DUE TO CHEST PAIN 8/10 SHARP NON RADIATING PAIN ON L SIDE OF CHEST THAT STARTED ABOUT 40 MIN AGO. PT. STATES " I FELL OFF FROM MY ELECTRIC CHAIR ABOUT AN HOUR AGO AND HIT MY HEAD". PT. DENIES ANY N/V OR DIZZYNESS AT THIS TIME. DENIES SOB. 8/10 PAIN IN L SIDE OF CHEST THAT IS NON RADIATING AND DESCRIBED DULL AND SHARP. PT HAS R SIDED WEAKNESS DUE TO CVA. RR EVEN AND UNLABORED. SKIN WARM AND DRY TO TOUCH. ER MD NOTIFIED. WILL CONTINUE TO MONITOR. SAFETY PRECAUTIONS INITIATED.
--- NOTE | 2017-10-06 13:00 | NUR ---
Unsuccesful attempt to start IV by charge nurse BITA Dubon and BITA Brito . ER MD Veronica notified.
[2017-10-06] MEDS ORDERED: MORPHINE SULFATE 2 MG/ML SYR IVP ONE (13:05)
[2017-10-06] MEDS ORDERED: DEXT 5% / NACL 0.45% 1,000 ML IV SCH (13:28)
[2017-10-06] MEDS ORDERED: ZOLPIDEM 5 MG TAB PO PRN (13:30)
[2017-10-06] MEDS ORDERED: MORPHINE SULFATE 2 MG/ML SYR IM ONE (13:30)
[2017-10-06] MEDS ORDERED: DOCUSATE SODIUM 100 MG GELCAP PO PRN (13:30)
[2017-10-06] MEDS ORDERED: LORazepam 2 MG/ML VIAL IM/IVP PRN (13:30)
[2017-10-06] MEDS ORDERED: MORPHINE SULFATE 4 MG/ML SYR ONE (13:38)
[2017-10-06] MEDS ORDERED: ONDANSETRON 4 MG/2 ML VIAL IM/IVP PRN (14:00)
--- NOTE | 2017-10-06 14:00 | NUR ---
pt. resting comfortably in bed, rr even and unlabored, vss. will continue to monitor.
[2017-10-06 14:59] LABS: BASOPHILS % (AUTO) 0.7 % (0.0-2.0); EOSINOPHILS # (AUTO) 0.2 K/uL (0-0.4); EOSINOPHILS % (AUTO) 3.4 % (0.0-4.0); HEMATOCRIT 37.7 % (36-52); HEMOGLOBIN 11.8 g/dL (12.0-18.0); LYMPHOCYTES # (AUTO) 1.5 K/uL (2.0-11.5); LYMPHOCYTES % (AUTO) 27.4 % (20.5-51.1); MEAN CORPUSCULAR HEMOGLOBIN 25 pg (27-31); MEAN CORPUSCULAR HGB CONC 31 g/dL (33-37); MEAN CORPUSCULAR VOLUME 78.9 fL (80-94); MONOCYTES # (AUTO) 0.5 K/uL (0.8-1.0); MONOCYTES % (AUTO) 8.2 % (1.7-9.3); NEUTROPHILS # (AUTO) 3.4 K/uL (1.8-7.7); NEUTROPHILS % (AUTO) 60.3 % (42.2-75.2); PLATELET COUNT (AUTO) 154 K/uL (140-450); RED BLOOD CELL COUNT(AUTO) 4.78 MIL/uL (4.20-6.10); RED CELL DISTRIBUTION WIDTH 21.4 % (11.6-13.7); WHITE BLOOD COUNT (AUTO) 5.6 K/uL (4.8-10.8)
[2017-10-06] MEDS ORDERED: LOVENOX 1MG/KG Q24H SUBQ SCH (15:00)
[2017-10-06 15:15] LABS: ANION GAP 11.7 (8-16); CARBON DIOXIDE 25.8 mmol/L (21-32); CREATININE 1.1 mg/dL (0.7-1.3); POTASSIUM 4.5 mmol/L (3.5-5.1)
[2017-10-06 15:20] LABS: ALBUMIN 3.4 g/dL (3.4-5.0); TOTAL BILIRUBIN 0.1 mg/dL (0.0-1.0)
--- NOTE | 2017-10-06 15:25 | NUR ---
PT ARRIVED ON THE UNIT WITH 2 ER NURSES. PT IS ALERT AND ORIENTED. PT IS COMBATIVE AND ARGUMENTATIVE. PT SCOOTED FROM THE GURNEY TO THE BED. PT IS STATES HE HAD A STROKE RECENTLY, BEGINNING OF AUGUST AND IS NOT WHEELCHAIR BOUND. HE USES AN ELECTRIC WHEELCHAIR, WHICH IS IN SECURITY AT THIS TIME. HIS PERSONAL BELONGINGS WITH HIM. PT HAS NO IV ACCESS. WASN'T ABLE TO START ONE. PER ER NURSE, PT HAD A MORPHINE INJ ABOUT 2 HRS AGO. SKIN IS INTACT. PT IS ON NPO EXCEPT MEDS BUT CHANGED TO CARDIAC/CCHO DIET. LAST BS WAS 119. PT IS POSITIVE FOR DVT R POPLITEAL. WILL LABS ARE UNREMARKABLE. TROPONIN NEGATIVE. WILL CONTINUE TO MONITOR PT.
--- NOTE | 2017-10-06 15:25 | NUR ---
Patient will be admitted to care of dr. ventura . Admited to Tele . Will go to room 105A . Belongings list completed. Report to leslie Chand .
[2017-10-06] MEDS ORDERED: ENOXAPARIN 120 MG/0.8 ML SYR SUBQ SCH (15:30)
[2017-10-06 15:31] LABS: MAGNESIUM 2.4 mg/dL (1.8-2.4); PHOSPHORUS 3.6 mg/dL (2.5-4.9)
--- NOTE | 2017-10-06 15:45 | NUR ---
LOVENOX GIVEN ORDERED
[2017-10-06 16:17] LABS: BARBITURATE, URINE NEG. ng/ml (NEG <=200); BENZODIAZEPINE, URINE NEG. ng/mL (NEG <=200); CANNABINOID, URINE NEG. ng/mL (NEG <=50); COCAINE, URINE NEG. ng/mL (NEG <=300); OPIATE, URINE NEG. ng/mL (NEG <=2000); PHENCYCLIDINE SCREEN,URINE NEG. ng/mL (NEG <=25)
[2017-10-06 16:36] VITALS: BP 135/84
[2017-10-06 17:09] LABS: THYROID STIMULATING HORMONE 0.91 uIU/mL (0.34-3.74)
[2017-10-06] MEDS: PHENYTOIN 100 MG CAPER PO SCH (17:20)
[2017-10-06] MEDS: FERROUS SULFATE 325 MG TABEC PO SCH (17:21)
[2017-10-06] MEDS ORDERED: CLOPIDOGREL 75 MG TAB PO SCH (17:25)
[2017-10-06] MEDS ORDERED: LISINOPRIL 5 MG TAB PO SCH (17:26)
[2017-10-06] MEDS ORDERED: NIFEdipine 30 MG TABER PO SCH (17:27)
[2017-10-06 17:32] LABS: BILIRUBIN,URINE NEGATIVE (NEGATIVE); BLOOD, URINE NEGATIVE (NEGATIVE); LEUKOCYTE ESTERASE ,URINE NEGATIVE (NEGATIVE); NITRITE, URINE NEGATIVE (NEGATIVE); UGLUCOSE NEGATIVE (NEGATIVE)
[2017-10-06 17:33] LABS: APPEARANCE,URINE CLEAR (CLEAR); COLOR,URINE YELLOW (YELLOW)
--- NOTE | 2017-10-06 17:40 | NUR ---
ADMINISTERED MEDS ORDERED. PT REFUSED WATER AND REQUESTED JUICE. ALREADY HAD 6 BOXES OF JUICE. WHEN WE EXPLAIN TO PT, PT IS DIABETIC, HE USED PROFANE LANGUAGE F Y. F THIS AND F THAT. GAVE JUICE, DILUTED WITH ICE AND WATER AND PT TOOK MEDICATION.
--- NOTE | 2017-10-06 17:42 | NUR ---
PT REFUSED CT. DENTAL SCHEDULING COORDINATOR LEFT BC PT WOULD NOT VERBALIZE HIS . ONLY GAVE FIRST NAME AND NOT HIS LAST. REQUESTED DR RODRIGUEZ TO ASSIST. DR RODRIGUEZ SPOKE WITH W/ PT. PT REFUSED. MD WILL CANCEL ORDER.
--- NOTE | 2017-10-06 18:20 | NUR ---
REFUSED DINNER. HIS MEAT HAD BLOOD ON IT. WE EXPLAINED THERE ISN'T BLOOD, IT IS GRAVY. HE USED PROFANITY TO SAY WE WERE FEEDING HIM BLOODY MEAT. WANTED PEANUT BUTTER SANDWICH, CRACKERS. ORDERED FROM [facility] PEANUT BUTTER, CRACKERS, AND BREAD. WHEN THEY BROUGHT UP THE BREAD, HE DIDN'T WANT IT. HE JUST TOOK THE CRACKERS AND PEANUT BUTTER. PT IS VERBALLY AGGRESSIVE AND ABUSIVE. WILL CONTINUE TO MONITOR PT.
[2017-10-06] MEDS: NACL 0.9% 1,000 ML IV SCH (18:27)
--- NOTE | 2017-10-06 18:59 | NUR ---
PT UPSET, BEING BELLIGERENT BC THERE IS NO JUICE ON THE TRAY. " I DON'T DRINK FAKE WATER FROM [employer]." EXPLAINED TO HIM THAT IT IS FILTERED. HE JUST DRINKS JUICE. CHARGE NURSE GAVE PT 2 BOXES OF JUICE AND STATED NO MORE.
--- NOTE | 2017-10-06 19:22 | NUR ---
ENDORSED PT TO THE BANK ANALYST NURSE AT BEDSIDE FOR CONTINUITY OF CARE. PT IS IN STABLE CONDITION. UPSET ABOUT HIS LIMITED JUICE BUT STABLE.
--- NOTE | 2017-10-06 19:22 | NUR ---
RECEIVED REPORT FROM DAY SHIFT NURSE AT PT BEDSIDE. PT IN STABLE CONDITION. PT IS A/O X4. PT HAS NO IV ACCESS. NURSES ATTEMPTED IN ER AND WERE UNSUCCESSFUL. SKIN IS INTACT. PT IS ON RA. PT C/O PAIN HOWEVER NO MEDICATION ORDERED. WILL SPEAK WITH RESIDENTS REGARDING PT PAIN. BED IS LOCKED, BED ALARM ON, BED IN LOWEST POSITION AND SIDE RAILS UP X2. BOARD UPDATED. WILL CONTINUE TO MONITOR.
--- NOTE | 2017-10-06 19:40 | NUR ---
SPOKE WITH RESIDENTS REGARDING PT HX OF DM. RESIDENTS DO NOT WANT BLOOD GLUCOSE MONITORING PERFORMED.
--- NOTE | 2017-10-06 19:50 | NUR ---
SPOKE WITH RESIDENTS REGARDING PT WHO IS STATING HE IS HAVING CHEST PAIN PAIN. RESIDENTS DO NOT WANT TO GIVE MORPHINE TO PT UNLESS HE HAS AN IV ACCESS. I WILL SPEAK WITH PT REGARDING GETTING IV ACCESS.
[2017-10-06 20:00] VITALS: BP 117/68
--- NOTE | 2017-10-06 20:00 | NUR ---
PT AGREED TO IV ACCESS IN ORDER TO RECEIVE PAIN MEDICINE.
--- NOTE | 2017-10-06 20:41 | NUR ---
ER NURSE AT PT BEDSIDE ATTEMPTING TO BEGIN IV ON PT. PT IS UPSET, YELLING AND CURSING AT ER NURSE AND MYSELF.
--- NOTE | 2017-10-06 21:22 | NUR ---
NURSE UNABLE TO GAIN IV ACCESS. RESIDENTS AGREED TO TORADOL IM. WILL ADMINISTER ONCE VERIFIED.
--- NOTE | 2017-10-06 21:36 | NUR ---
PT REFUSING TO WEAR YELLOW FALL RISK SOCKS.
--- NOTE | 2017-10-06 21:43 | NUR ---
PT EATING SNACK IN BED. PT REQUESTING MORE SNACKS. PT REFUSING TO DRINK WATER BECAUSE HE STATES HE DOES NOT LIKE THE WATER HERE. WILL ONLY TAKE MEDICATION WITH JUICE.
[2017-10-06] MEDS ORDERED: KETOROLAC 15 MG/ML VIAL IM ONE (21:45)
[2017-10-06] MEDS: ATORVASTATIN 20 MG TAB PO SCH (21:50)
--- NOTE | 2017-10-06 21:50 | NUR ---
ORDERED MEDICATIONS ADMINISTERED. PT TOLERATED WELL. WILL CONTINUE TO MONITOR.
[2017-10-06] MEDS: DOCUSATE SODIUM 100 MG GELCAP PO SCH (21:51)
[2017-10-06] MEDS: QUEtiapine FUMARATE 100 MG TAB PO SCH (21:51)
--- NOTE | 2017-10-06 21:51 | NUR ---
PT GIVEN PAIN MEDICATION. WILL CONTINUE TO MONITOR PT.
[2017-10-06] MEDS: METOPROLOL 25 MG TAB PO SCH (21:52)
--- NOTE | 2017-10-06 22:53 | NUR ---
PT RESTING IN BED COMFORTABLY. NO SIGNS OF DISTRESS. WILL CONTINUE TO MONITOR.
[2017-10-07] VITALS: BP 106/66
--- NOTE | 2017-10-07 00:14 | NUR ---
PT VS WITHIN NORMAL LIMITS. PT ASLEEP IN BED. WILL CONTINUE TO MONITOR PT.
--- NOTE | 2017-10-07 02:31 | NUR ---
PT ASLEEP IN BED. NO S/SX OF DISTRESS. WILL CONTINUE TO MONITOR.
--- NOTE | 2017-10-07 02:34 | NUR ---
RECEIVED REPORT FROM MASON ADMINISTRATIVE MANAGERROASTER HELPER NURSE DUE TO CHANGE IN ASSIGNMENTS. PT IN STABLE CONDITION.
[2017-10-07 04:00] VITALS: BP 121/70
--- NOTE | 2017-10-07 04:08 | NUR ---
PT VS WITHIN NORMAL LIMITS. NO C/O PAIN. WILL CONTINUE TO MONITOR PT.
--- NOTE | 2017-10-07 06:00 | NUR ---
PT SLEEPING IN BED. NO SIGNS OF DISTRESS. WILL CONTINUE TO MONITOR.
[2017-10-07] MEDS: NACL 0.9% 1,000 ML IV SCH ×2 (07:00→18:00)
--- NOTE | 2017-10-07 07:05 | NUR ---
ENDORSED PT TO DAY SHIFT NURSE FOR CONTINUITY OF CARE. PT IN STABLE CONDITION.
--- NOTE | 2017-10-07 07:10 | NUR ---
RECEIVED REPORT FROM BILLING DEPARTMENT SUPERVISOR NURSE, PATIENT IS SLEEPING IN BED AROUSABLE TO NAME, PATIENT AAOX4, ON ROOM AIR, PATIENT HAS NO IV SITE, POSSIBLE ORDER FOR PICC LINE. PATIENT IS WHEEL CHAIR BOUND, BED ALARM IN PLACE AND ON. SKIN INTACT, SEIZURE/FALL PRECAUTIONS IN PLACE, DISCUSSED PLAN OF CARE FOR PATIENT. PATIENT IS SHOWING NO SIGNS OF DISTRESS OR PAIN, CALL LIGHT WITHIN REACH, WILL CONTINUE TO MONITOR.
--- NOTE | 2017-10-07 07:18 | NUR ---
PATIENT HAS BEEN SCREENED AND CATEGORIZED MODERATE RISK. PATIENT WILL BE SEEN WITHIN 3-5 DAYS OF ADMISSION. 10/09- [address]
[2017-10-07 08:00] VITALS: BP 124/79
[2017-10-07] MEDS ORDERED: LISINOPRIL 5 MG TAB PO SCH (09:00)
[2017-10-07] MEDS ORDERED: NIFEdipine 30 MG TABER PO SCH (09:00)
[2017-10-07] MEDS ORDERED: CLOPIDOGREL 75 MG TAB PO SCH (09:00)
[2017-10-07] MEDS ORDERED: POTASSIUM CHLORIDE 10 MEQ TABER PO SCH (09:00)
--- NOTE | 2017-10-07 09:04 | NUR ---
INFORMED DR. CAMPBELL THE PATIENT HAD K DUR 40 MEQ SCHEDULED THIS MORNING BUT THE PATIENT CURRENT POTASSIUM LEVEL WAS 4.5. ASKED DR. CAMPBELL IF SHE STILL WANTED THE PATIENT TO TAKE THE K DUR. PER DR. CAMPBELL HOLD OFF ON THE POTASSIUM FOR NOW.
[2017-10-07] MEDS: LISINOPRIL 5 MG TAB PO SCH (09:14)
[2017-10-07] MEDS: PHENYTOIN 100 MG CAPER PO SCH ×3 (09:14→17:56)
[2017-10-07] MEDS: METOPROLOL 25 MG TAB PO SCH ×2 (09:15→21:16)
[2017-10-07] MEDS: FERROUS SULFATE 325 MG TABEC PO SCH ×2 (09:15→17:50)
[2017-10-07] MEDS: ASCORBIC ACID 500 MG TAB PO SCH (09:16)
[2017-10-07] MEDS: CLOPIDOGREL 75 MG TAB PO SCH (09:16)
[2017-10-07] MEDS: NIFEdipine 30 MG TABER PO SCH (09:17)
[2017-10-07] MEDS: FUROSEMIDE 40 MG TAB PO SCH (09:18)
[2017-10-07] MEDS: DOCUSATE SODIUM 100 MG GELCAP PO SCH ×2 (09:18→21:15)
--- NOTE | 2017-10-07 09:27 | NUR ---
RECEIVED REPORT FROM CHOIR LEADER NURSE, PATIENT IS SLEEPING IN BED AROUSABLE TO NAME, PATIENT CORTNEY, ON ROOM AIR, PATIENT HAS NO IV SITE, POSSIBLE ORDER FOR PICC LINE. PATIENT IS WHEEL CHAIR BOUND, BED ALARM IN PLACE AND ON. SKIN INTACT, SEIZURE/FALL PRECAUTIONS IN PLACE, DISCUSSED PLAN OF CARE FOR PATIENT. PATIENT IS SHOWING NO SIGNS OF DISTRESS OR PAIN, CALL LIGHT WITHIN REACH, WILL CONTINUE TO MONITOR. Addendum: 10/07/17 at 0955 by Jaymie Ulrich RN WRONG TIME ENTRY
--- NOTE | 2017-10-07 10:58 | NUR ---
PATIENT OUT OF BED, IN THE RESTROOM, PT BED LINENS WERE CHANGED. PT AMBULATED INDEPENDENTLY BACK INTO BED.
[2017-10-07 12:00] VITALS: BP 118/71
--- NOTE | 2017-10-07 12:50 | NUR ---
ADMINISTERED 1300 MEDICATION PER ORDER, PATIENT TOLERATED WELL. PATIENT IN BED, BED IN LOWEST POSITION, CALL LIGHT WITHIN REACH, WILL CONTINUE TO MONITOR.
--- NOTE | 2017-10-07 14:08 | NUR ---
CALLED [phone] TO LET THEM KNOW I HAD A PATIENT ON MED SURG/TELE FLOOR WHO NEEDS A PICC LINE. CLIENT TECHNICAL PROFESSIONAL SAID SHE WOULD INFORM PICC LINE NURSE. I LET THEM KNOW PATIENT IS IN ROOM 105A.
--- NOTE | 2017-10-07 15:00 | NUR ---
PATIENT SLEEPING IN BED, NO SIGNS OF PAIN OR DISCOMFORT, BED IN LOWEST POSITION, CALL LIGHT WITHIN REACH, WILL CONTINUE TO MONITOR.
[2017-10-07 15:23] LABS: T4 (THYROXINE) 6.4 ug/dL (4.5-12.0)
[2017-10-07 16:00] VITALS: BP 128/71
--- NOTE | 2017-10-07 17:30 | NUR ---
PICC LINE INSERTED AT RIGHT UPPER ARM, PATIENT TOLERATED WELL. WILL CONTINUE TO MONITOR.
[2017-10-07] MEDS ORDERED: MORPHINE SULFATE 2 MG/ML SYR ONE (17:45)
--- NOTE | 2017-10-07 18:00 | NUR ---
PATIENT IN BED EATING DINNER, PATIENT REQUESTED PAIN MEDICATION, PAIN MEDICATION ADMINISTERED PER ORDER. FLUIDS STARTED POST PICC LINE INSERTION, PER ORDER. BED IN LOWEST POSITION, CALL VANEGAS WITHIN REACH, WILL CONTINUE TO MONITOR.
--- NOTE | 2017-10-07 19:20 | NUR ---
PATIENT IS SLEEPING AND STABLE. ENDORSED CONTINUITY OF CARE TO FOOD SALES CLERK NURSE.
--- NOTE | 2017-10-07 19:25 | NUR ---
RECEIVED PATIENT ASLEEP ON BED IN COMFORTABLE POSITION. FALL PRECAUTION APPLIED . CALL LIGHT WITHIN REACH. WILL CONTINUE TO MONITOR.
[2017-10-07 20:00] VITALS: BP 127/86
--- NOTE | 2017-10-07 20:48 | NUR ---
EXCHANGED PATIENT TO JESSI. PATIENT PREFER FEMALE NURSE. PATIENT IN STABLE CONDITION.
--- NOTE | 2017-10-07 20:48 | NUR ---
RECEIVED REPORT FROM MASON SUNSHINE NIGHTSHIFT NURSE AT BEDSIDE, PT IN STABLE CONDITION.
[2017-10-07] MEDS: ATORVASTATIN 20 MG TAB PO SCH (21:15)
[2017-10-07] MEDS: QUEtiapine FUMARATE 100 MG TAB PO SCH (21:17)
[2017-10-07] MEDS: MORPHINE SULFATE 2 MG/ML SYR IVP PRN (21:22)
--- NOTE | 2017-10-07 21:22 | NUR ---
PT IN LOW BED WITH ALL FALLS PRECAUTIONS IN PLACE, PT A0X 4. PT HAS PICC LINE IN RIGHT UPPER ARM RUNNING N/S AT 80MLS/HR. PT C/O OF 6/10 PAIN IN RIGHT LEG AND WAS GIVEN MORPHINE PRN IVP WELL ORDERED MEDICATION. ALL REQUESTED NEEDS ATTENDED BY STAFF, PT HAS CALL VANEGAS IN EACH.
--- NOTE | 2017-10-07 21:55 | NUR ---
POSITIVE EFFECT OF MORPHINE NOTED, PT ASLEEP IN LOW BED WITH ALL SAFETY PRECAUTIONS IN PLACE. PT TURNS AND REPOSITIONS SELF IN BED. PT REQUESTED A SNACK BUT WAS UNHAPPY WITH ANY OPTIONS, PT WENT BACK TO SLEEP
[2017-10-08] VITALS: BP 98/70
--- NOTE | 2017-10-08 02:12 | NUR ---
DR RICHARDSON RESIDENT MADE AWARE OF LOW LEVEL OF DILANTIN REFLECTED IN LAB. DR ORDERED ANOTHER REDRAW OF DILANTIN IN AM. NO SEIZURE ACTIVITY NOTED THIS SHIFT, AND SEIZURE PRECAUTIONS IN PLACE.
[2017-10-08 04:00] VITALS: BP 124/70
--- NOTE | 2017-10-08 04:49 | NUR ---
PT SLEEPING IN BED NO S/S OF PAIN OR DISTRESS NOTED ALL FALLS AND SEIZURE PRECAUTIONS IN PLACE V/S FOLLOWS T 97.0 P 55 R 20 B/P 124/70 02 98% W R/A. CALL VANEGAS IN REACH.
[2017-10-08 06:03] LABS: BASOPHILS % (AUTO) 0.2 % (0.0-2.0); EOSINOPHILS # (AUTO) 0.2 K/uL (0-0.4); EOSINOPHILS % (AUTO) 3.6 % (0.0-4.0); HEMATOCRIT 36.6 % (36-52); HEMOGLOBIN 11.4 g/dL (12.0-18.0); LYMPHOCYTES # (AUTO) 1.5 K/uL (2.0-11.5); LYMPHOCYTES % (AUTO) 29.4 % (20.5-51.1); MEAN CORPUSCULAR HEMOGLOBIN 25 pg (27-31); MEAN CORPUSCULAR HGB CONC 31 g/dL (33-37); MEAN CORPUSCULAR VOLUME 79.1 fL (80-94); MONOCYTES # (AUTO) 0.4 K/uL (0.8-1.0); NEUTROPHILS % (AUTO) 58.8 % (42.2-75.2); PLATELET COUNT (AUTO) 153 K/uL (140-450); RED BLOOD CELL COUNT(AUTO) 4.63 MIL/uL (4.20-6.10); RED CELL DISTRIBUTION WIDTH 21.1 % (11.6-13.7); WHITE BLOOD COUNT (AUTO) 5.1 K/uL (4.8-10.8)
--- NOTE | 2017-10-08 06:26 | NUR ---
INDEPENDENT TRADER INFORMED PRIMARY NURSE THAT PT IS OFF TELE MONITORING. PT DOES HAVE TELE STICKERS ON CHEST AND WIRE CONNECTORS IN PLACE AND INTACT, PT DOES NOT WANT STICKES TO BE REPLACED AND DOESNT WANT TO BE BOTHERED AT THIS TIME. INDEPENDENT TRADER AWARE.
[2017-10-08 07:18] LABS: ANION GAP 8.3 (8-16); CARBON DIOXIDE 28.5 mmol/L (21-32); CREATININE 0.9 mg/dL (0.7-1.3); POTASSIUM 3.8 mmol/L (3.5-5.1)
--- NOTE | 2017-10-08 07:25 | NUR ---
REPORT GIVEN TO YUNIER SUNSHINE DAYSHIFT NURSE AT BEDSIDE FOR CONTINUITY OF CARE. PT ASLEEP IN BED NO C/O VOICED.
--- NOTE | 2017-10-08 07:30 | NUR ---
RECEIVED REPORT FROM DIRECTOR OF COMMUNITY LIFE NURSE. PT IS SLEEPING BUT EASILY AWAKEN, PT IS AAOX4, PT IS AMBULATORY, PT HAS PICC LINE ON HIS RIGHT UPPER ARM, PATENT, INTACT, FLUSHING WELL, PT IS ON RA, SKIN IS INTACT, NO S/S OF RESPIRATORY DISTRESS OR DISCOMFORT NOTED, DISCUSSED PLAN OF CARE WITH PT, PT VERBALIZED UNDERSTANDING, SAFETY/FALL/SEIZURE PRECAUTIONS ARE IN PLACE, CALL LIGHT IS WITHIN REACH, WILL CONTINUE TO MONITOR.
[2017-10-08 08:00] VITALS: BP 129/86
[2017-10-08] MEDS: NACL 0.9% 1,000 ML IV SCH (08:00)
[2017-10-08] MEDS ORDERED: PROMETHAZINE 25 MG/ML VIAL IVP PRN (08:00)
--- NOTE | 2017-10-08 09:00 | NUR ---
ADMINISTERED MEDICATION TO PATIENT, PATIENT TOLERATED MEDICATIONS WELL, POST MEDICATION ADMINISTRATION PATIENT CLOSED EYES AND LAID BACK DOWN. BED IN LOWEST POSITION, CALL VANEGAS WITHIN REACH, WILL CONTINUE TO MONITOR
[2017-10-08] MEDS: FERROUS SULFATE 325 MG TABEC PO SCH ×2 (09:14→16:24)
[2017-10-08] MEDS: NIFEdipine 30 MG TABER PO SCH (09:14)
[2017-10-08] MEDS: PHENYTOIN 100 MG CAPER PO SCH ×3 (09:14→16:24)
[2017-10-08] MEDS: ASCORBIC ACID 500 MG TAB PO SCH (09:14)
[2017-10-08] MEDS: DOCUSATE SODIUM 100 MG GELCAP PO SCH ×2 (09:15→20:11)
[2017-10-08] MEDS: LISINOPRIL 5 MG TAB PO SCH (09:15)
[2017-10-08] MEDS: CLOPIDOGREL 75 MG TAB PO SCH (09:15)
[2017-10-08] MEDS: FUROSEMIDE 40 MG TAB PO SCH (09:16)
[2017-10-08] MEDS: METOPROLOL 25 MG TAB PO SCH ×2 (09:16→20:13)
--- NOTE | 2017-10-08 11:00 | NUR ---
PT OFF UNIT TO HAVE CT-SCAN OF ABDOMEN DONE. PT LEFT IN STABLE CONDITION.
--- NOTE | 2017-10-08 11:15 | NUR ---
PT RETURNED TO UNIT FROM RADIOLOGY. PT IS STABLE. AAOX4, RESTING IN BED, NO S/S RESPIRATORY DISTRESS OR DISCOMFORT NOTED, SAFETY/FALL PRECAUTIONS ARE IN PLACE. CALL LIGHT IS WITHIN REACH.
[2017-10-08 12:00] VITALS: BP 106/85
--- NOTE | 2017-10-08 13:00 | NUR ---
PT BED LINENS AND GOWN CHANGED. ALL PATIENT'S NEEDS MET AT THIS TIME, CALL LIGHT IS WITHIN REACH.
--- NOTE | 2017-10-08 13:55 | NUR ---
ECHO PRIOR 05-21-17. GAVE PRIOR ECHO REPORT TO DR. CAMPBELL
[2017-10-08 16:00] VITALS: BP 124/61
--- NOTE | 2017-10-08 16:30 | NUR ---
ADMINISTERED MEDICATION PER MAR, AND CHECKED VITALS. PATIENT WAS SLEEPING, TOLERATED MEDICATIONS WELL. PATIENT WENT BACK TO SLEEP. ALL NEEDS FOR PATIENT BEING MET. SAFETY PRECAUTIONS IN PLACE, WILL CONTINUE TO MONITOR.
--- NOTE | 2017-10-08 19:25 | NUR ---
ENDORSED PT TO CATERING DIRECTOR NURSE FOR CONTINUITY OF CARE. PT STABLE AT THIS TIME.
--- NOTE | 2017-10-08 19:25 | NUR ---
RECEIVED REPORT FROM YUNIER SUNSHINE AND RODRIGUEZ JUAREZ RN AT BEDSIDE PT AOX 3 LYING IN LOW BED WITH SIDE RAILS UP AND ALL FALLS PRECAUTIONS IN PLACE.
[2017-10-08] MEDS: ATORVASTATIN 20 MG TAB PO SCH (20:11)
[2017-10-08] MEDS: QUEtiapine FUMARATE 100 MG TAB PO SCH (20:13)
[2017-10-08] MEDS: MORPHINE SULFATE 2 MG/ML SYR IVP PRN (20:21)
--- NOTE | 2017-10-08 20:25 | NUR ---
PT DEMANDING FOOD AND PAIN MEDICATION. PT CALLED X3 SINCE 1919 COMPLAINING THAT HE DID NOT GET HIS FOOD YET AND THAT HE WAS BOARD AND WANTED SOMETHING TO EAT AND DRINK. PT GIVEN MORPHINE IV PUSH FOR 8/10 R LEG PAIN WELLAS A SNACK OF SANDWICH AND JUICE. PT VERBALLY ABUSIVE TOWARD STAFF.
--- NOTE | 2017-10-08 20:39 | NUR ---
PT C/O THAT HE FEELS THAT HE DOESNT NEED THE IV FLUID AT THIS TIME, BECAUSE HE FEELS LIKE IT IS MAKING HIS LEG SWELL MORE. PRIMARY NURSE EXPLAINED THAT IT IS THE DOCTOR'S ORDERS FOR HIM TO RECEIVE THIS FLUID. PT SAID THAT THE DOCTORS AND NURSES DON'T KNOW WHAT THEY ARE DOING. THEN HE ASKED FOR HIS WHEELCHAIR AND THAT HE WANTS TO LEAVE. CHARGE NURSE NOTIFED AND HE CALLED SECURITY AND RESIDENT DOCTOR DENISE. DR CALLAWAY EXPLAINED THAT HE WOULD BE LEAVING AGAINST MEDICAL ADVICE AND THAT HE HAS A BLOOD CLOT IN HIS LEG AND HE IS RECEIVING TREATMENT HERE. PT SAID YOU DONT KNOW ABOUT , I KNOW ABOUT . PT GIVEN FORM TO SIGN AMA HE SCRIBBLED ON IT, AT THIS TIME , SECRUITY ARRIVED WITH HIS WHEEL CHAIR AND PT TOOK HIS BELONGINGS AND SAID THANKS FOR NOTHING! AND PT LEFT, AMA.
--- NOTE | 2017-10-08 20:55 | NUR ---
PICC LINE REMOVED FROM ARM BY NAHEED SUNSHINE AT BEDSIDE AND PT LEFT [facility] AT 2054 WITH MOTORIZED W/C AND ALL BELONGINGS IN HAND.
== END 2017-10-08 20:55 | disposition left against medical advice (07) | DRG 198 ==
LOC: MED 12:22 → MTU 13:28
PROVIDERS: ADMIT General Practice; ATTEND General Practice
PROC: 02HV33Z Insertion of Infusion Device into Superior Vena Cava, Percutaneous Approach (ICD-10-PCS; principal; 2017-10-07)
PROC: B548ZZA Ultrasonography of Superior Vena Cava, Guidance (ICD-10-PCS; 2017-10-07)
DX: R07.89 Other chest pain (principal); I25.2 Old myocardial infarction; J18.9 Pneumonia, unspecified organism; I11.0 Hypertensive heart disease with heart failure; I50.9 Heart failure, unspecified; I69.351 Hemiplegia and hemiparesis following cerebral infarction affecting right dominant side; D57.1 Sickle-cell disease without crisis; E11.9 Type 2 diabetes mellitus without complications; E78.00 Pure hypercholesterolemia, unspecified; E78.5 Hyperlipidemia, unspecified; E66.9 Obesity, unspecified; F17.210 Nicotine dependence, cigarettes, uncomplicated; G40.909 Epilepsy, unspecified, not intractable, without status epilepticus; F39 Unspecified mood [affective] disorder; G89.29 Other chronic pain; J98.11 Atelectasis; I82.531 Chronic embolism and thrombosis of right popliteal vein; Z53.20 Procedure and treatment not carried out because of patient's decision for unspecified reasons; Z86.711 Personal history of pulmonary embolism; Z85.46 Personal history of malignant neoplasm of prostate; Z88.0 Allergy status to penicillin; Z88.8 Allergy status to other drugs, medicaments and biological substances; Z88.6 Allergy status to analgesic agent; Z91.041 Radiographic dye allergy status; Z68.33 Body mass index [BMI] 33.0-33.9, adult; Z82.49 Family history of ischemic heart disease and other diseases of the circulatory system; Z71.6 Tobacco abuse counseling; Z91.19 Patient's noncompliance with other medical treatment and regimen
CPT/HCPCS: 36415; 71045; 74150; 80048; 80053; 80185; 80305; 81003; 82948; 83036; 83690; 83735; 83880; 84100; 84134; 84436; 84443; 84484; 85025; 85379; 85610; 85730; 87081; 93005; 93971; 96372; 99285; C1751; G0482; J1650; J1885; J2270; J7030; Q0092

== ENCOUNTER 2018-02-24 04:49 | Inpatient (IN) | payer OTHER ==
[~2018-02-24] VITALS: Ht 193 cm; Wt 143.3 kg
[2018-02-24 04:53] VITALS: BP 143/97
[2018-02-24] MEDS ORDERED: FUROSEMIDE 40 MG/4 ML VIAL IVP ONE (05:05)
[2018-02-24] MEDS ORDERED: MORPHINE SULFATE 4 MG/ML SYR IVP ONE ×2 (05:05→14:50)
[2018-02-24] MEDS ORDERED: diphenhydrAMINE 50 MG/ML VIAL IVP ONE ×2 (05:15→12:15)
[2018-02-24] MEDS ORDERED: methylPREDNISolone SS 125 MG/2 ML VIAL IVP ONE (05:15)
[2018-02-24] MEDS ORDERED: ENOXAPARIN 120 MG/0.8 ML SYR SUBQ ONE (07:25)
[2018-02-24 12:26] LABS: BASOPHILS % (AUTO) 0.3 % (0.0-2.0); EOSINOPHILS % (AUTO) 0.2 % (0.0-4.0); HEMATOCRIT 38.6 % (36-52); HEMOGLOBIN 12.2 g/dL (12.0-18.0); LYMPHOCYTES # (AUTO) 0.7 K/uL (2.0-11.5); LYMPHOCYTES % (AUTO) 10.2 % (20.5-51.1); MEAN CORPUSCULAR HEMOGLOBIN 26 pg (27-31); MEAN CORPUSCULAR HGB CONC 32 g/dL (33-37); MEAN CORPUSCULAR VOLUME 83.1 fL (80-94); MONOCYTES # (AUTO) 0.1 K/uL (0.8-1.0); MONOCYTES % (AUTO) 1.9 % (1.7-9.3); NEUTROPHILS # (AUTO) 6.1 K/uL (1.8-7.7); NEUTROPHILS % (AUTO) 87.4 % (42.2-75.2); PLATELET COUNT (AUTO) 170 K/uL (140-450); RED BLOOD CELL COUNT(AUTO) 4.64 MIL/uL (4.20-6.10); RED CELL DISTRIBUTION WIDTH 18.8 % (11.6-13.7)
[2018-02-24 13:00] LABS: ALBUMIN 3.4 g/dL (3.4-5.0); ANION GAP 12.3 (8-16); CARBON DIOXIDE 30.6 mmol/L (21-32); CREATININE 1.1 mg/dL (0.7-1.3); POTASSIUM 4.9 mmol/L (3.5-5.1); TOTAL BILIRUBIN 0.2 mg/dL (0.0-1.0)
[2018-02-24 13:17] LABS: PROTHROMBIN TIME 10.6 secs (10.8-13.4)
[2018-02-24] MEDS ORDERED: ONDANSETRON 4 MG/2 ML VIAL IM/IVP PRN (15:15)
[2018-02-24] MEDS ORDERED: DOCUSATE SODIUM 100 MG GELCAP PO PRN (15:15)
[2018-02-24] MEDS ORDERED: ACETAMINOPHEN 325 MG TAB PO PRN (15:15)
[2018-02-24] MEDS ORDERED: HYDROcodone/APAP 5/325 MG 1 TAB TAB PO PRN (15:15)
[2018-02-24] MEDS ORDERED: NITROGLYCERIN 0.4 MG TAB SL ONE (15:20)
[2018-02-24 16:00] VITALS: BP 125/82
[2018-02-24] MEDS ORDERED: ALBUTEROL SULFATE/IPRATROPIU 3 ML SOL IH PRN (16:35)
[2018-02-24] MEDS ORDERED: [UNRECOGNIZED DRUG - CODE] SC (16:54)
[2018-02-24 17:05] LABS: CHOL/HDL RATIO 4.1 (1-4.5); MAGNESIUM 2.1 mg/dL (1.8-2.4); PHOSPHORUS 2.9 mg/dL (2.5-4.9); THYROID STIMULATING HORMONE 0.5 uIU/mL (0.34-3.74)
[2018-02-24 17:10] LABS: PROTHROMBIN TIME 10.5 secs (10.8-13.4)
[2018-02-24] MEDS: PHENYTOIN 100 MG CAPER PO SCH (17:40)
[2018-02-24] MEDS: FERROUS SULFATE 325 MG TABEC PO SCH (17:41)
[2018-02-24] MEDS: NACL 0.9% 1,000 ML IV SCH (17:42)
[2018-02-24] MEDS: MORPHINE SULFATE 4 MG/ML SYR IVP PRN (19:31)
[2018-02-24 20:00] VITALS: BP 132/81
[2018-02-24] MEDS: METOPROLOL SUCCINATE 50 MG TABER PO SCH (20:13)
[2018-02-24] MEDS ORDERED: ENOXAPARIN 80 MG/0.8 ML SYR SUBQ SCH (21:00)
[2018-02-24] MEDS ORDERED: QUEtiapine FUMARATE 100 MG TAB PO SCH (21:00)
[2018-02-25] VITALS: BP 96/66
[2018-02-25] MEDS: NACL 0.9% 1,000 ML IV SCH ×2 (00:38→03:44)
[2018-02-25] MEDS: MORPHINE SULFATE 4 MG/ML SYR IVP PRN ×2 (03:34→08:47)
[2018-02-25 04:00] VITALS: BP 106/75
[2018-02-25 08:00] VITALS: BP 125/79
[2018-02-25 08:10] LABS: BASOPHILS % (AUTO) 0.2 % (0.0-2.0); EOSINOPHILS % (AUTO) 0.2 % (0.0-4.0); HEMATOCRIT 34.3 % (36-52); HEMOGLOBIN 10.7 g/dL (12.0-18.0); LYMPHOCYTES # (AUTO) 1.8 K/uL (2.0-11.5); LYMPHOCYTES % (AUTO) 21.7 % (20.5-51.1); MEAN CORPUSCULAR HEMOGLOBIN 26 pg (27-31); MEAN CORPUSCULAR HGB CONC 31 g/dL (33-37); MEAN CORPUSCULAR VOLUME 84.2 fL (80-94); MONOCYTES # (AUTO) 0.8 K/uL (0.8-1.0); MONOCYTES % (AUTO) 9.2 % (1.7-9.3); NEUTROPHILS # (AUTO) 5.7 K/uL (1.8-7.7); NEUTROPHILS % (AUTO) 68.7 % (42.2-75.2); PLATELET COUNT (AUTO) 151 K/uL (140-450); RED BLOOD CELL COUNT(AUTO) 4.07 MIL/uL (4.20-6.10); RED CELL DISTRIBUTION WIDTH 19.3 % (11.6-13.7); WHITE BLOOD COUNT (AUTO) 8.3 K/uL (4.8-10.8)
[2018-02-25] MEDS: PHENYTOIN 100 MG CAPER PO SCH (08:50)
[2018-02-25] MEDS: METOPROLOL SUCCINATE 50 MG TABER PO SCH (08:51)
[2018-02-25] MEDS: FERROUS SULFATE 325 MG TABEC PO SCH (08:53)
[2018-02-25] MEDS ORDERED: ATORVASTATIN 20 MG TAB PO SCH (09:00)
[2018-02-25] MEDS ORDERED: FUROSEMIDE 40 MG TAB PO SCH (09:00)
[2018-02-25] MEDS ORDERED: NIFEdipine 30 MG TABER PO SCH (09:00)
[2018-02-25] MEDS ORDERED: LISINOPRIL 5 MG TAB PO SCH (09:00)
[2018-02-25] MEDS ORDERED: ASCORBIC ACID 500 MG TAB PO SCH (09:00)
[2018-02-25] MEDS ORDERED: CLOPIDOGREL 75 MG TAB PO SCH (09:00)
[2018-02-25] MEDS ORDERED: ENOXAPARIN 80 MG/0.8 ML SYR SUBQ SCH ×2 (09:19→21:00)
[2018-02-25] MEDS ORDERED: ENOXAPARIN 60 MG/0.6 ML SYR SUBQ SCH ×2 (09:20→21:00)
[2018-02-25 13:20] LABS: ANION GAP 15.6 (8-16); CARBON DIOXIDE 26.6 mmol/L (21-32); CREATININE 1.1 mg/dL (0.7-1.3); POTASSIUM 4.2 mmol/L (3.5-5.1)
== END 2018-02-25 11:20 | disposition left against medical advice (07) | DRG 206 ==
LOC: MED 04:49 → MTU 15:09
PROVIDERS: ADMIT General Practice; ATTEND General Practice
PROC: 02HV33Z Insertion of Infusion Device into Superior Vena Cava, Percutaneous Approach (ICD-10-PCS; principal; 2018-02-24)
PROC: B548ZZA Ultrasonography of Superior Vena Cava, Guidance (ICD-10-PCS; 2018-02-24)
DX: M94.0 Chondrocostal junction syndrome [Tietze] (principal); I82.531 Chronic embolism and thrombosis of right popliteal vein; I69.351 Hemiplegia and hemiparesis following cerebral infarction affecting right dominant side; Z68.41 Body mass index [BMI] 40.0-44.9, adult; E11.9 Type 2 diabetes mellitus without complications; G90.9 Disorder of the autonomic nervous system, unspecified; D57.1 Sickle-cell disease without crisis; G40.909 Epilepsy, unspecified, not intractable, without status epilepticus; E66.9 Obesity, unspecified; F17.200 Nicotine dependence, unspecified, uncomplicated; F39 Unspecified mood [affective] disorder; E78.5 Hyperlipidemia, unspecified; Z53.21 Procedure and treatment not carried out due to patient leaving prior to being seen by health care provider; I11.0 Hypertensive heart disease with heart failure; I50.9 Heart failure, unspecified; Z88.0 Allergy status to penicillin; Z88.8 Allergy status to other drugs, medicaments and biological substances; Z88.6 Allergy status to analgesic agent; Z91.041 Radiographic dye allergy status; Z79.899 Other long term (current) drug therapy; I25.2 Old myocardial infarction; Z86.711 Personal history of pulmonary embolism; Z71.6 Tobacco abuse counseling
CPT/HCPCS: 36415; 70450; 71045; 71275; 80048; 80053; 80185; 82150; 83605; 83690; 83735; 83880; 84100; 84443; 84484; 85025; 85379; 85610; 85730; 87081; 93005; 93880; 93970; 96372; 96374; 96375; 96376; 99285; C1751; J1200; J1650; J1940; J2270; J2930; J7030; J7620; Q0092; Q9967

== ENCOUNTER 2018-04-13 15:42 | Inpatient (IN) | payer OTHER, MEDICARE ==
[~2018-04-13] VITALS: Ht 193 cm; Wt 123.4 kg
[~2018-04-13 15:42] MED LIST changes: -CLOP75TA26 PO; +[UNRECOGNIZED DRUG - CODE] SC
[2018-04-13 15:48] VITALS: BP_SYST 126; BP_SYST 136; BP_DIAS 98; BP_DIAS 99
--- NOTE | 2018-04-13 16:01 | NUR ---
PATIENT AMBULATED TO BED 6
--- NOTE | 2018-04-13 16:14 | NUR ---
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 Denies n/vd. SKIN IS INTACT, PINK/WARM/DRY; AAOX4, PERRL, WITH EVEN AND STEADY GAIT; LUNGS CLEAR BL, BREATHING UNLABORED; HR EVEN AND REGULAR, BL PERIPHERAL PULSES PRESENT; PT DENIES ANY FEVER, SOB, OR COUGH AT THIS TIME; PT STATES 8/10 PAIN AT THIS TIME; VSS; PATIENT POSITIONED FOR COMFORT; HOB ELEVATED; BEDRAILS UP X2; BED DOWN. hx; NM x3, htn, chf, seizure, sickle cell, blood clots rx; procardia, Dilantin, seroquil, lasix, lipitor,
--- NOTE | 2018-04-13 16:19 | NUR ---
X-RAY AT BEDSIDE.
[2018-04-13] MEDS ORDERED: HYDROcodone/APAP 7.5/325 MG 1 TAB PO PRN (16:40)
[2018-04-13] MEDS ORDERED: ONDANSETRON 4 MG/2 ML VIAL IVP PRN (16:40)
[2018-04-13] MEDS ORDERED: MORPHINE SULFATE 4 MG/ML SYR IVP ONE (16:45)
[2018-04-13] MEDS ORDERED: ONDANSETRON 4 MG/2 ML VIAL IVP ONE (16:45)
[2018-04-13 16:50] LABS: BASOPHILS % (AUTO) 0.4 % (0.0-2.0); EOSINOPHILS # (AUTO) 0.2 K/uL (0-0.4); EOSINOPHILS % (AUTO) 1.5 % (0.0-4.0); HEMATOCRIT 44.7 % (36-52); LYMPHOCYTES # (AUTO) 2.3 K/uL (2.0-11.5); LYMPHOCYTES % (AUTO) 21.2 % (20.5-51.1); MEAN CORPUSCULAR HEMOGLOBIN 27 pg (27-31); MEAN CORPUSCULAR HGB CONC 31 g/dL (33-37); MEAN CORPUSCULAR VOLUME 85.8 fL (80-94); MONOCYTES # (AUTO) 0.7 K/uL (0.8-1.0); MONOCYTES % (AUTO) 6.4 % (1.7-9.3); NEUTROPHILS # (AUTO) 7.6 K/uL (1.8-7.7); NEUTROPHILS % (AUTO) 70.5 % (42.2-75.2); PLATELET COUNT (AUTO) 148 K/uL (140-450); RED BLOOD CELL COUNT(AUTO) 5.21 MIL/uL (4.20-6.10); RED CELL DISTRIBUTION WIDTH 17.6 % (11.6-13.7); WHITE BLOOD COUNT (AUTO) 10.8 K/uL (4.8-10.8)
[2018-04-13 17:06] LABS: ANION GAP 10.6 (8-16); CARBON DIOXIDE 29.6 mmol/L (21-32); CREATININE 1.1 mg/dL (0.7-1.3); POTASSIUM 4.2 mmol/L (3.5-5.1)
[2018-04-13 17:11] LABS: ALBUMIN 3.5 g/dL (3.4-5.0); TOTAL BILIRUBIN 0.3 mg/dL (0.0-1.0)
[2018-04-13 17:25] LABS: PROTHROMBIN TIME 11.6 secs (10.8-13.4)
[2018-04-13 17:30] VITALS: BP 127/82
--- NOTE | 2018-04-13 17:30 | NUR ---
RECEIVED BEDSIDE REPORT FROM ER NURSE. PT STABLE, AWAKE, AND ALERT. NO SIGNS OF DISTRESS NOTED. NO REDNESS, SWELLING, OR INFLAMMATION NOTED ON IV SITE. BED RAILS PADDED. BED IN LOW POSITION. CALL VANEGAS WITHIN REACH. SAFETY MEASURES IN PLACE. PLAN OF CARE REVIEWED.
[2018-04-13 17:42] LABS: BARBITURATE, URINE NEG. ng/ml (NEG <=200); BENZODIAZEPINE, URINE NEG. ng/mL (NEG <=200); CANNABINOID, URINE NEG. ng/mL (NEG <=50); COCAINE, URINE NEG. ng/mL (NEG <=300); OPIATE, URINE NEG. ng/mL (NEG <=2000); PHENCYCLIDINE SCREEN,URINE NEG. ng/mL (NEG <=25)
--- NOTE | 2018-04-13 17:42 | NUR ---
Patient will be admitted to care of DR. FELDMAN. Admited to TELE. Will go to room 108A. Belongings list completed. Report to SUSANNA SUNSHINE.
[2018-04-13 17:55] LABS: APPEARANCE,URINE CLEAR (CLEAR); BILIRUBIN,URINE NEGATIVE (NEGATIVE); BLOOD, URINE NEGATIVE (NEGATIVE); COLOR,URINE YELLOW (YELLOW); LEUKOCYTE ESTERASE ,URINE NEGATIVE (NEGATIVE); NITRITE, URINE NEGATIVE (NEGATIVE); UGLUCOSE NEGATIVE (NEGATIVE)
[2018-04-13 17:59] LABS: CHOL/HDL RATIO 5.1 (1-4.5); FREE T4 (FREE THYROXINE) 0.88 ng/dL (0.76-1.46); PHOSPHORUS 3.3 mg/dL (2.5-4.9); THYROID STIMULATING HORMONE 0.58 uIU/mL (0.34-3.74)
--- NOTE | 2018-04-13 19:05 | NUR ---
ENDORSED PT TO TWISTING OPERATOR NURSE FOR CONTINUITY OF CARE. PT STABLE, AWAKE, AND ALERT.
--- NOTE | 2018-04-13 19:55 | NUR ---
RECEIVED REPORT FROM DAYSHIFT NURSE AT BEDSIDE FOR CONTINUITY OF CARE. PATIENT IS AWAKE, ALERT, RESPIRATION EVEN UNLABORED ON ROOM AIR. SKIN IS WARM AND DRY. IV PATENT AND INTACT. ALL SAFETY MEASURE IN PLACE. SIDE RAILS PADDED. PLAN OF CARE WAS DISCUSSED. ORIENT PATIENT TO ROOM, STAFF, AND CALL LIGHT. BED IS AT LOWEST POSITION. CALL LIGHT WITHIN REACH.
[2018-04-13 20:00] VITALS: BP 129/83
--- NOTE | 2018-04-13 20:00 | NUR ---
PATIENT WAS AWAKE, ALERT, RESPIRATION EVEN UNLABORED ON ROOM AIR. VITALS STABLES. MEDS WERE GIVEN PER ORDER. COMPLAINED OF PAIN 7/10. PRN PAIN ADMINISTERED. CALL LIGHT WITHIN REACH. WILL CONTINUE TO MONITOR.
[2018-04-13] MEDS: NACL 0.9% 1,000 ML IV SCH (20:08)
[2018-04-13] MEDS: QUEtiapine FUMARATE 100 MG TAB PO SCH (20:15)
[2018-04-13] MEDS: DOCUSATE SODIUM 100 MG GELCAP PO SCH (20:16)
[2018-04-13] MEDS: MORPHINE SULFATE 2 MG/ML SYR IVP PRN (20:17)
[2018-04-13] MEDS: METOPROLOL 25 MG TAB PO SCH (20:17)
--- NOTE | 2018-04-13 20:30 | NUR ---
PATIENT REQUESTED O2 NC. PATIENT STATED USES O2 NC AT HOME WHILE SLEEPING. NOTIFIED DR. HENRY. IS AWARE AND PUT AN ORDER. NASAL CANNULA ADMINISTERED. PATIENT TOLERATE WELL. WILL CONTINUE TO MONITOR.
--- NOTE | 2018-04-13 21:45 | NUR ---
BLOOD IN THE URINE NOTED. NOTIFIED DR. HENRY. SAW PATIENT AND ASSESS AT BEDSIDE. STATED TO CONTINUE TO MONITOR.
[2018-04-14] VITALS: BP 93/65
--- NOTE | 2018-04-14 | NUR ---
PATIENT IS SLEEPING COMFORTABLY RESPIRATION EVEN UNLABORED ON O2 2L NC. NO DISTRESS NOTED. WILL CONTINUE TO
[2018-04-14 04:00] VITALS: BP 96/68
[2018-04-14] MEDS: MORPHINE SULFATE 2 MG/ML SYR IVP PRN ×4 (06:30→21:34)
--- NOTE | 2018-04-14 06:30 | NUR ---
PT C/O PAIN, PAIN MEDICATION ORDERED ADMINISTERED, PT TOLERATED WELL, CALL LIGHT WITHIN REACH, WILL CONTINUE TO MONITOR.
--- NOTE | 2018-04-14 07:20 | NUR ---
ENDORSED PATIENT TO DAYSHIFT NURSE FOR CONTINUITY OF CARE. PATIENT IS STABLE AT THIS TIME.
--- NOTE | 2018-04-14 07:22 | NUR ---
RECEIVED BEDSIDE REPORT FROM MAPLE PRODUCTS MAKER NURSE. PT IS AOX4. PT IS RESTING ON AT THIS TIME. DENIES OF PAIN. NO SIGN OF DISTRESS NOTED. PT IS NOT WEAR NC AT THIS TIME AND STATES " I ONLY WANT TO WEAR IT AT BEDTIME AND IT HELPS ME SLEEP BETTER". RESPIRATORY EVEN AND UNLABORED, SPO2 AT 92%. IV ON L FOOT 22G, INTACT AND PATENT, INFUSING PER MD ORDER. IV SITE CLEAN AND DRY. SKIN INTACT, DRY AND CLEAN. ABLE TO AMBULATE WITH STEADY GAIT. DISCUSSED PLAN OF CARE FOR TODAY, PT VERBALIZED UNDERSTANDING. CONTACT PRECAUTION FOR MRSA IN PLACE. BED IN LOW POSITION, CALL LIGHT WITHIN REACH.
[2018-04-14 08:00] VITALS: BP 108/77
--- NOTE | 2018-04-14 08:26 | NUR ---
PATIENT HAS BEEN SCREENED AND CATEGORIZED MODERATE NUTRITION RISK. PATIENT WILL BE SEEN WITHIN 3-5 DAYS OF ADMISSION. 04/15/18-04/17/[address]
[2018-04-14] MEDS ORDERED: NIFEdipine 30 MG TABER PO SCH (09:00)
[2018-04-14] MEDS ORDERED: LISINOPRIL 5 MG TAB PO SCH (09:00)
[2018-04-14] MEDS ORDERED: ATORVASTATIN 20 MG TAB PO SCH ×2 (09:00→21:00)
[2018-04-14] MEDS ORDERED: FUROSEMIDE 40 MG TAB PO SCH (09:00)
[2018-04-14] MEDS ORDERED: ASCORBIC ACID 500 MG TAB PO SCH (09:00)
[2018-04-14] MEDS ORDERED: PHENYTOIN 100 MG CAPER PO SCH (09:00)
[2018-04-14] MEDS ORDERED: PANTOPRAZOLE 40 MG INJ VIAL IVP SCH (09:00)
[2018-04-14] MEDS: DOCUSATE SODIUM 100 MG GELCAP PO SCH ×2 (09:01→21:07)
[2018-04-14] MEDS: FERROUS SULFATE 325 MG TABEC PO SCH ×2 (09:02→17:51)
[2018-04-14] MEDS: METOPROLOL 25 MG TAB PO SCH ×2 (09:03→21:08)
--- NOTE | 2018-04-14 09:06 | NUR ---
CHECKED BP PRIOR TO BP MEDS ADMINISTRATION. BP 107/72, PULSE 82. ADMINISTERED MEDS PED MD ORDER. PT TOLERATED WELL. DENIES PAIN AT THE MOMENT. NO SIGNS OF DISTRESS NOTED. SAFETY MEASURES IN PLACE.
--- NOTE | 2018-04-14 11:15 | NUR ---
PATIENT IS SLEEPING ON BED AT THIS TIME. NO SIGNS OF DISTRESS NOTED.
[2018-04-14 12:00] VITALS: BP 121/86
--- NOTE | 2018-04-14 12:00 | NUR ---
PT C/O THAT HE DOESN'T LIKE HIS LUNCH AND WOULD LIKE A TUNA SANDWICH INSTEAD. CALLED [facility] AND PLACED AN ORDER FOR TUNA SANDWICH.
--- NOTE | 2018-04-14 12:34 | NUR ---
PT RECEIVED HIS TUNAS SANDWICH.
[2018-04-14] MEDS: PHENYTOIN 100 MG CAPER PO SCH ×2 (13:22→17:52)
--- NOTE | 2018-04-14 14:56 | NUR ---
PATIENT IS RESTING ON BED. NO SIGNS OF DISTRESS NOTED.
[2018-04-14] MEDS: NACL 0.9% 1,000 ML IV SCH (15:01)
[2018-04-14 16:00] VITALS: BP 127/70
--- NOTE | 2018-04-14 16:30 | NUR ---
Regulatory Affairs Director Notes: I attempted to meet with Patient to discuss and gather his information. Patient was not cooperative and very rude during screen. Patient stated "I dont want to answer your stupid questions; I don need any help "
--- NOTE | 2018-04-14 17:05 | NUR ---
ASSISTED PT TO GET OUT OF THE BED TO USE THE BATHROOM AND GOT BACK ON BED. NO SIGNS OF DISTRESS NOTED. DENIES OF PAIN.
--- NOTE | 2018-04-14 19:05 | NUR ---
GAVE BEDSIDE REPORT TO INTERN PRODUCT MARKETING MANAGER NURSE FOR CONTINUITY OF CARE. PT IS IN STABLE CONDITION.
--- NOTE | 2018-04-14 19:10 | NUR ---
RECEIVED PT IN STABLE CONDITION FROM AM NURSE. AWAKE,ALERT AND ORIENTED X4. ON TELE MONITOR. WITH NO C/O ANY DISCOMFORT NOR PAIN AT THIS TIME. HAS IVF INFUSING WELL ON THE LT FOOT G#22. CLEAR AND PATENT. PLAN OF CARE DISCUSSED AND VERBALIZED UNDERSTANDING. BED ON LOWEST POSITION. CALL LIGHT AND URINAL WITHIN EASY REACH. BED ARE PADDED FOR SEIZURE PRECAUTIONS. INSTRUCTED TO CALL IF NEED ASSISTANCE. WILL CONTINUE TO MONITOR.
[2018-04-14 19:55] VITALS: BP 126/77
--- NOTE | 2018-04-14 20:30 | NUR ---
NEED ARE ATTENDED. HAD SOME SANDWICH REQUESTED.
[2018-04-14] MEDS: QUEtiapine FUMARATE 100 MG TAB PO SCH (21:08)
--- NOTE | 2018-04-14 22:34 | NUR ---
MADE ROUNDS. PT IS ASLEEP. NO S/S OF ANY PAIN NOTED AT THIS TIME.
--- NOTE | 2018-04-15 | NUR ---
PT REFUSED TO BE BOTHERED. REFUSED VITAL SIGNS AT THIS TIME.
--- NOTE | 2018-04-15 02:30 | NUR ---
MADE ROUNDS. PT IS ASLEEP. NO S/S OF ANY DISTRESS NOTED.
[2018-04-15 04:11] VITALS: BP 125/88
[2018-04-15] MEDS: MORPHINE SULFATE 2 MG/ML SYR IVP PRN (04:21)
--- NOTE | 2018-04-15 04:25 | NUR ---
PT C/O PAIN @0569 MEDICATED ORDERED. WILL CONTINUE TO MONITOR.
--- NOTE | 2018-04-15 06:30 | NUR ---
PT ASLEEP. NO DISTRESS NOR PAIN NOTED AT THIS TIME.
--- NOTE | 2018-04-15 06:50 | NUR ---
PT AWAKE. GOT UP TO THE BATHROOM. THEN HE SAID HE IS GOING HOME. HE CHANGE HIS CLOTHES. WENT BACK TO BED. WHEN TOLD THAT HE HAS TO SIGN AMA PAPERS. HE SAID HE HAS TO WAIT FOR THE DR. BUT HE ALREADY REMOVED HIS TEL MONITOR BOX. REFUSED TO HAVE IT ON.
--- NOTE | 2018-04-15 07:10 | NUR ---
ENDORSED PT IN STABLE CONDITION TO AM NURSE.
--- NOTE | 2018-04-15 07:11 | NUR ---
RECEIVED REPORT FROM BENCH INSPECTOR NURSE. PATIENT IN AGITATED MOOD, SAYS HE DOESN'T WANT MALE NURSES. VERBALIZES WANTS TO LEAVE AMA BUT WANTS TO TALK WITH MD FIRST. MD NOTIFIED. IV SITE INTACT, PATENT, AND ON SALINE LOCK PATIENT REFUSES IVF. REVIEWED PLAN OF CARE WITH PATIENT. PATIENT VERBALIZED UNDERSTANDING. SAFETY MEASURES IN PLACE, CALL LIGHT WITHIN REACH. WILL CONTINUE TO MONITOR.
--- NOTE | 2018-04-15 07:50 | NUR ---
PATIENT IN AGITATED MOOD, WISHES TO LEAVE AMA HE DOES NOT WANT TO STAY HERE ANY LONGER. NOTIFIED MD. AT BEDSIDE TALKING WITH PATIENT REGARDING RISKS OF LEAVING AMA. PATIENT CONTINUES TO WANT TO LEAVE AMA DESPITE RISKS OF LEAVING AMA. AMA PAPERS SIGNED AT THIS TIME. PATIENT TO GET DRESSED AND THEN TO LEAVE AMA.
--- NOTE | 2018-04-15 08:00 | NUR ---
PATIENT ALL DRESSED UP. IV SITE REMOVED WITH MINIMAL BLOOD AND LUMEN COMPLETELY INTACT. ID BANDS REMOVED. ESCORTED PATIENT DOWN TO LOBBY VIA STEADY AMBULATION. PATIENT AMA AT THIS TIME IN STABLE CONDITION.
== END 2018-04-15 08:00 | disposition left against medical advice (07) | DRG 205 ==
LOC: MED 15:42 → MTU 16:43
PROVIDERS: ADMIT General Practice; ATTEND General Practice
DX: M94.0 Chondrocostal junction syndrome [Tietze] (principal); N17.0 Acute kidney failure with tubular necrosis; I69.951 Hemiplegia and hemiparesis following unspecified cerebrovascular disease affecting right dominant side; I82.5Z1 Chronic embolism and thrombosis of unspecified deep veins of right distal lower extremity; K62.5 Hemorrhage of anus and rectum; K21.9 Gastro-esophageal reflux disease without esophagitis; E11.9 Type 2 diabetes mellitus without complications; I11.0 Hypertensive heart disease with heart failure; E78.5 Hyperlipidemia, unspecified; D57.3 Sickle-cell trait; G40.909 Epilepsy, unspecified, not intractable, without status epilepticus; E66.9 Obesity, unspecified; F39 Unspecified mood [affective] disorder; I25.10 Atherosclerotic heart disease of native coronary artery without angina pectoris; Z98.61 Coronary angioplasty status; Z88.5 Allergy status to narcotic agent; Z88.0 Allergy status to penicillin; Z88.8 Allergy status to other drugs, medicaments and biological substances; Z88.6 Allergy status to analgesic agent; Z91.041 Radiographic dye allergy status; I50.9 Heart failure, unspecified; I25.2 Old myocardial infarction; Z86.711 Personal history of pulmonary embolism; Z72.0 Tobacco use; Z71.6 Tobacco abuse counseling; Z53.21 Procedure and treatment not carried out due to patient leaving prior to being seen by health care provider; Z68.33 Body mass index [BMI] 33.0-33.9, adult
CPT/HCPCS: 36415; 71045; 80053; 80185; 80305; 81003; 82150; 83036; 83605; 83690; 83735; 83880; 84100; 84439; 84443; 84484; 85025; 85379; 85610; 85730; 87081; 93005; 93925; 93970; 96374; 96375; 99291; C9113; J2270; J2405; J7030; Q0092

== ENCOUNTER 2019-02-12 18:50 | Inpatient (IN) | payer OTHER ==
[~2019-02-12] VITALS: Ht 193 cm; Wt 124.7 kg
[2019-02-12 19:11] VITALS: BP 153/71
--- NOTE | 2019-02-12 19:25 | NUR ---
PT AMBULATED TO BED, PLACED ON MONITOR
--- NOTE | 2019-02-12 19:51 | NUR ---
44 Y/O MALE C/O 8/10 SQUEEZING CHEST PAIN AND SOB X3 HRS. PT STATES THE PAIN RADIATES TO RT ARM AND BACK. DENIES N/V/D. SOB STARTED WHEN CHEST PAIN OCCURRED. RR EVEN AND UNLABORED, NO ACCESSORY MUSCLE USE. PT CALM AND RESTING IN BED. PT PLACED ON THE MONITOR. BED LOCKED AND IN LOW POSTION, X1 SIDE RAIL RAISED.
--- NOTE | 2019-02-12 20:03 | NUR ---
DR CHRISTIANSON AT BEDSIDE EXAMINING PT.
--- NOTE | 2019-02-12 20:08 | NUR ---
XRAY AT PT BEDSIDE.
[2019-02-12] MEDS ORDERED: ALBUTEROL SULFATE/IPRATROPIU 3 ML SOL IH ONE (20:10)
[2019-02-12] MEDS ORDERED: KETOROLAC 30 MG/ML VIAL IVP ONE (21:05)
[2019-02-12] MEDS ORDERED: MORPHINE SULFATE 4 MG/ML SYR IVP ONE (21:50)
[2019-02-12 21:59] LABS: BARBITURATE, URINE NEG. ng/ml (NEG <=200); BENZODIAZEPINE, URINE NEG. ng/mL (NEG <=200); CANNABINOID, URINE NEG. ng/mL (NEG <=50); COCAINE, URINE NEG. ng/mL (NEG <=300); OPIATE, URINE NEG. ng/mL (NEG <=2000); PHENCYCLIDINE SCREEN,URINE NEG. ng/mL (NEG <=25)
[2019-02-12 22:05] LABS: BASOPHILS % (AUTO) 0.5 % (0.0-2.0); EOSINOPHILS # (AUTO) 0.1 K/uL (0-0.4); EOSINOPHILS % (AUTO) 1.1 % (0.0-4.0); HEMATOCRIT 39.1 % (36-52); HEMOGLOBIN 12.7 g/dL (12.0-18.0); LYMPHOCYTES % (AUTO) 22.7 % (20.5-51.1); MEAN CORPUSCULAR HEMOGLOBIN 28 pg (27-31); MEAN CORPUSCULAR HGB CONC 33 g/dL (33-37); MONOCYTES # (AUTO) 0.5 K/uL (0.8-1.0); MONOCYTES % (AUTO) 6.2 % (1.7-9.3); NEUTROPHILS # (AUTO) 6.1 K/uL (1.8-7.7); NEUTROPHILS % (AUTO) 69.5 % (42.2-75.2); PLATELET COUNT (AUTO) 214 K/uL (140-450); RED CELL DISTRIBUTION WIDTH 14.9 % (11.6-13.7); WHITE BLOOD COUNT (AUTO) 8.8 K/uL (4.8-10.8)
--- NOTE | 2019-02-12 22:14 | NUR ---
PT REQUEST IV BE REMOVED, IV REMOVED AT THIS TIME.
[2019-02-12 22:25] LABS: ANION GAP 13.5 (8-16); CARBON DIOXIDE 27.9 mmol/L (21-32); POTASSIUM 4.4 mmol/L (3.5-5.1)
[2019-02-12 22:30] LABS: ALBUMIN 3.6 g/dL (3.4-5.0); TOTAL BILIRUBIN 0.2 mg/dL (0.0-1.0)
[2019-02-12 22:38] LABS: CREATINE KINASE MB 2.2 ng/mL (0-3.6)
[2019-02-12] MEDS ORDERED: NACL 0.9% 1,000 ML IV SCH (22:47)
[2019-02-12] MEDS ORDERED: ZOLPIDEM 5 MG TAB PO PRN (22:50)
[2019-02-12] MEDS ORDERED: DOCUSATE SODIUM 100 MG GELCAP PO PRN (22:50)
[2019-02-12] MEDS ORDERED: LORazepam 2 MG/ML VIAL IM/IVP PRN (22:50)
[2019-02-12] MEDS ORDERED: ONDANSETRON 4 MG/2 ML VIAL IM/IVP PRN (22:50)
[2019-02-12] MEDS ORDERED: NITROGLYCERIN 0.4 MG TAB SL PRN (22:55)
[2019-02-12] MEDS ORDERED: ALBUTEROL SULFATE/IPRATROPIU 3 ML SOL IH PRN (22:55)
[2019-02-12] MEDS ORDERED: KETOROLAC 30 MG/ML VIAL IVP PRN (22:55)
--- NOTE | 2019-02-12 23:00 | NUR ---
PT NOT COMPLAINING OF PAIN AT THIS TIME. PT RESTING IN BED, VSS. WILL CONTINUE TO MONITOR.
--- NOTE | 2019-02-12 23:01 | NUR ---
PT RESTING IN BED WITH EYES CLOSED, VISIBLE RISE AND FALL OF THE CHEST. PT REMAINS ON MONITOR. BED LOCKED AND IN LOW POSITION. VSS. WILL CONTINUE TO MONITOR.
[2019-02-12 23:02] LABS: APPEARANCE,URINE CLEAR (CLEAR); BILIRUBIN,URINE NEGATIVE (NEGATIVE); BLOOD, URINE NEGATIVE (NEGATIVE); COLOR,URINE YELLOW (YELLOW); LEUKOCYTE ESTERASE ,URINE NEGATIVE (NEGATIVE); NITRITE, URINE NEGATIVE (NEGATIVE); UGLUCOSE NEGATIVE (NEGATIVE)
[2019-02-12 23:19] LABS: CHOL/HDL RATIO 4.6 (1-4.5); MAGNESIUM 2.1 mg/dL (1.8-2.4); THYROID STIMULATING HORMONE 1.68 uIU/mL (0.34-3.74)
[2019-02-12 23:29] LABS: PROTHROMBIN TIME 10.4 secs (10.8-13.4)
--- NOTE | 2019-02-12 23:55 | NUR ---
PT REQUESTED TO HAVE IV PLACED ON FOOT. PER DR CHRISTIANSON, IT IS OK TO START IV ON FOOT. ATTEMPTED TO PLACED IV ON L FOOT, UNSUCCESSFUL AFTER ONE ATTEMPT. SUCCESSFUL INSERTION ON R WRIST WITH 24G, PT TOLERATED WELL.
--- NOTE | 2019-02-13 00:13 | NUR ---
Patient will be admitted to care of DR FELDMAN. Admited to TELE. Will go to room 120B. Belongings list completed. Report to BITA FIGUEROA.
--- NOTE | 2019-02-13 00:35 | NUR ---
RECEIVED BEDSIDE REPORT FROM COMPUTER OPERATIONS ANALYST RN HENRY, FOR PT'S CONTINUITY OF CARE. PT CAME IN AT 0005 FROM ED, PT REFUSED TO HAVE MALE RN. PT IS AAOX4, ON ROOM AIR, HAS HAMMERER, HAS RIGHT WRIST 24G, C/O CHEST PAIN 9/10, WANTS PAIN MEDICATION AND SANDWICHES AND APPLE JUICE. VS CHECKED AND CHARTED, REFUSED MRSA SWAB, PT AGITATED AND DEMANDING PAIN MEDICATION AND FOOD. WILL SPEAK WITH MD FOR FURTHER ORDERS.
[2019-02-13] MEDS ORDERED: INSULIN LISPRO SLIDING SCALE 100 UNITS/ML VIAL SUBQ PRN (00:40)
[2019-02-13] MEDS ORDERED: DEXTROSE 50% 50 ML SYR IVP PRN (00:40)
[2019-02-13] MEDS ORDERED: ENOXAPARIN 120 MG/0.8 ML SYR SUBQ SCH ×2 (01:30→09:00)
--- NOTE | 2019-02-13 01:40 | NUR ---
ADMINISTERED PRN IVP PAIN MEDICATION ORDERED. PT C/O IV SITE BEGUM WHEN ADMINISTERING PAIN MEDS. PT TEACHING GIVEN AND HE VERBALIZED UNDERSTANDING.
[2019-02-13] MEDS ORDERED: PHENYTOIN 100 MG CAPER PO SCH ×3 (02:00→09:00)
--- NOTE | 2019-02-13 02:10 | NUR ---
RECEIVED ORDERS FROM . ADMINISTERED SCHEDULED PO, IV PUSH, AND SUBQ MEDICATIONS ORDERED. PT TOLERATED THEM WELL. REQUESTED AND PROVIDED ANOTHER SANDWICH AND APPLE JUICE. PT TEACHING GIVEN RE: BLOOD GLUCOSE SPIKE, PER PT, "GLUCOSE LEVEL NEVER GOES UP HIGH". PT CALMED DOWN AND BEGIN TO COOPERATE AFTER EATING. EXPLAINED TO PT THE STRIKER OFF ROUTINE, PT VERBALIZED UNDERSTANDING. FALL AND SEIZURE PRECAUTION IN PLACE. WILL CONTINUE TO MONITOR PT.
[2019-02-13 04:00] VITALS: BP 133/83
[2019-02-13] MEDS ORDERED: POLYVINYL ALCOHOL 1.4% OP 15 ML SOL OP PRN (04:30)
--- NOTE | 2019-02-13 04:30 | NUR ---
VS CHECKED AND CHARTED. PT LYING DOWN C/O ROOM BEING TOO COLD HE FEELS LIKE A SEIZURE COMING ON. CHANGED THE TEMPERATURE AND PT STATED IT IS OK NOW.
[2019-02-13] MEDS ORDERED: ALBUTEROL SULFATE/IPRATROPIU 3 ML SOL IH SCH (06:00)
--- NOTE | 2019-02-13 06:45 | NUR ---
PT CAME OUT OF THE ROOM AND TOOK OFF HIS CONCESSION CASHIER STATING HE IS TIRED OF THE MONITOR BEING ON HIM. PT VOICING TO LEAVE AMA, AND STARTED TO GET AGITATED. WILL ENDORSE TO AM SHIFT RN FOR PT'S CONTINUITY OF CARE.
[2019-02-13] MEDS ORDERED: FUROSEMIDE 40 MG TAB PO SCH (07:00)
--- NOTE | 2019-02-13 07:28 | NUR ---
RECEIVED BEDSIDE REPORT FROM PM RN. PT AWAKE WEARING HIS PERSONAL CLOTHES AND STATED THAT HE WANTS TO LEAVE AGAINST MEDICAL ADVICE. PM RN AND I AT BEDSIDE EXPLAINED TO HIM TO WAIT A FEW MINUTES TO SPEAK WITH HIS MD TO DISCUSS MEDICAL CONCERNS. PT REFUSES TO WEAR HIS TELE MONITOR. WILL CONTINUE TO MONITOR.
[2019-02-13] MEDS ORDERED: BLOOD GLUCOSE MONITORING 1 DEV DEV FS SCH (07:30)
--- NOTE | 2019-02-13 07:34 | NUR ---
PT WAS VERY AGITATED AND WAS COMBATIVE REFUSED HIS BREATHING TX NO SIGNS OF SOB OR DISTRESS NOTED
[2019-02-13] MEDS ORDERED: FERROUS SULFATE 325 MG TABEC PO SCH (08:00)
--- NOTE | 2019-02-13 08:10 | NUR ---
DR. RODRIGUEZ AT BEDSIDE EXPLAINING THE RISK OF LEAVING AGAINST MEDICAL ADVICE. PT STATED THAT HE UNDERSTANDS AND THAT HE HAS TO LEAVE PT STATED HE HAS HIS OWN PRIMARY CARE PROVIDER AND WILL FOLLOW UP WITH HIS PRIMARY CARE PROVIDER. REMOVED PT IV IV TIP INTACT. PT LEFT AGAINST MEDICAL ADVICE. PT REFUSED TO SIGN AMA FORM PT WANTED A PRESCRIPTION FOR PAIN MEDICATION. DR. ORDRIGUEZ STATED HE CAN FOLLOW UP WITH HIS PRIMARY CARE PROVIDER FOR PAIN MEDICATIONS.
[2019-02-13] MEDS ORDERED: ENOXAPARIN SODIUM SCH (09:00)
[2019-02-13] MEDS ORDERED: NIFEdipine 30 MG TABER PO SCH (09:00)
[2019-02-13] MEDS ORDERED: METOPROLOL 25 MG TAB PO SCH (09:00)
[2019-02-13] MEDS ORDERED: ASCORBIC ACID 500 MG TAB PO SCH (09:00)
[2019-02-13] MEDS ORDERED: LISINOPRIL 5 MG TAB PO SCH (09:00)
[2019-02-13] MEDS ORDERED: QUEtiapine FUMARATE 100 MG TAB PO SCH (21:00)
[2019-02-13] MEDS ORDERED: ATORVASTATIN 20 MG TAB PO SCH (21:00)
== END 2019-02-13 08:05 | disposition left against medical advice (07) | DRG 206 ==
LOC: MED 18:50 → MTU 22:50
PROVIDERS: ADMIT General Practice; ATTEND General Practice
DX: M94.0 Chondrocostal junction syndrome [Tietze] (principal); I69.351 Hemiplegia and hemiparesis following cerebral infarction affecting right dominant side; I82.503 Chronic embolism and thrombosis of unspecified deep veins of lower extremity, bilateral; K21.9 Gastro-esophageal reflux disease without esophagitis; E66.9 Obesity, unspecified; E11.9 Type 2 diabetes mellitus without complications; I10 Essential (primary) hypertension; F17.210 Nicotine dependence, cigarettes, uncomplicated; E78.5 Hyperlipidemia, unspecified; D57.1 Sickle-cell disease without crisis; G40.909 Epilepsy, unspecified, not intractable, without status epilepticus; F39 Unspecified mood [affective] disorder; Z53.29 Procedure and treatment not carried out because of patient's decision for other reasons; Z68.33 Body mass index [BMI] 33.0-33.9, adult; Z71.3 Dietary counseling and surveillance; Z88.6 Allergy status to analgesic agent; Z88.0 Allergy status to penicillin; Z88.8 Allergy status to other drugs, medicaments and biological substances; I25.2 Old myocardial infarction; Z86.711 Personal history of pulmonary embolism; Z82.49 Family history of ischemic heart disease and other diseases of the circulatory system; Z91.19 Patient's noncompliance with other medical treatment and regimen
CPT/HCPCS: 36415; 71045; 80053; 80305; 81003; 82550; 82553; 82948; 83036; 83690; 83735; 83880; 84100; 84134; 84443; 84484; 85025; 85379; 85610; 85730; 87804; 94640; 96375; 99285; J1644; J1650; J1885; J2060; J2270; J7030; J7620

== ENCOUNTER 2019-05-05 03:46 | Inpatient (IN) | payer BC, OTHER ==
[~2019-05-05] VITALS: Ht 193 cm; Wt 119.3 kg
[2019-05-05 03:55] VITALS: BP 131/81
[2019-05-05] MEDS ORDERED: CLOPIDOGREL 75 MG TAB PO ONE (04:05)
--- NOTE | 2019-05-05 04:13 | NUR ---
Dr. Blancas examining patient.
--- NOTE | 2019-05-05 04:15 | NUR ---
44 YO MALE CO CHEST PAIN 8/10 PRESSURE SINCE TODAY. PT DESCRIBES THE PAIN A SHARP BURNING PAIN. EKG DONE WITH NSR THE RESULT. PT HAS BILATERAL WHEEZING IN BOTH LUNGS, BREATHING TX ORDERED.
[2019-05-05] MEDS ORDERED: ALBUTEROL SULFATE/IPRATROPIU 3 ML SOL IH ONE (04:25)
--- NOTE | 2019-05-05 06:10 | NUR ---
Called PICC RN ([phone]), and left a message
[2019-05-05 06:26] LABS: MONOCYTES # (AUTO) 0.1 K/uL (0.8-1.0); MONOCYTES % (AUTO) 2.7 % (1.7-9.3); PLATELET COUNT (AUTO) 27 K/uL (140-450)
[2019-05-05 06:28] LABS: BASOPHILS % (AUTO) 0.5 % (0.0-2.0); EOSINOPHILS % (AUTO) 0.2 % (0.0-4.0); HEMATOCRIT 37.6 % (36-52); HEMOGLOBIN 12.2 g/dL (12.0-18.0); LYMPHOCYTES # (AUTO) 0.7 K/uL (2.0-11.5); LYMPHOCYTES % (AUTO) 13.9 % (20.5-51.1); MEAN CORPUSCULAR HEMOGLOBIN 28 pg (27-31); MEAN CORPUSCULAR HGB CONC 33 g/dL (33-37); MEAN CORPUSCULAR VOLUME 85.5 fL (80-94); NEUTROPHILS # (AUTO) 4.5 K/uL (1.8-7.7); NEUTROPHILS % (AUTO) 82.7 % (42.2-75.2); RED CELL DISTRIBUTION WIDTH 16.6 % (11.6-13.7)
[2019-05-05] MEDS ORDERED: ACETAMINOPHEN 325 MG TAB PO PRN (06:30)
[2019-05-05] MEDS ORDERED: DOCUSATE SODIUM 100 MG GELCAP PO PRN (06:30)
[2019-05-05] MEDS ORDERED: ONDANSETRON 4 MG/2 ML VIAL IM/IVP PRN (06:30)
[2019-05-05 06:35] LABS: WHITE BLOOD COUNT (AUTO) 5.4 K/uL (4.8-10.8)
[2019-05-05] MEDS ORDERED: METF-1022 PO (07:05)
[2019-05-05] MEDS ORDERED: CARV3.12 PO (07:05)
[2019-05-05] MEDS ORDERED: LORazepam 1 MG TAB PO PRN (07:05)
[2019-05-05] MEDS ORDERED: FURO-570 PO (07:11)
--- NOTE | 2019-05-05 07:15 | NUR ---
Patient will be admitted to care of DR FELDMAN. Admited to ICU. Will go to room 3. Belongings list completed. Report to BITA SEGOVIA.
--- NOTE | 2019-05-05 07:15 | NUR ---
RECEIVED PATIENT TRANSFERRED FROM ER VIA GURNEY, PT IS AAOX4, PERRL, ABLE TO FOLLOW COMMANDS, STATED CHEST PAIN 8/10, VSS, NO S/S OF DISTRESS, WHEEZING LUNG SOUNDS STACIA. ON RA, O2 SAT 98%, SR ON ACCOUNTANT CERTIFIED PUBLIC, CAP REFILL <2 SEC, LARGE SOFT ABDOMEN WITH ACTIVE BOWEL SOUNDS, CONTINENT WITH B&B'S, SKIN IS INTACT, WARM AND DRY TO TOUCH, ABLE TO MOVE ALL EXTREMITIES, NO IV SITE DUE TO HARD STICK AT THIS TIME, AWARE, WAITING FOR PICC LINE NURSE, HOB ELEVATED 30 DEGREES, SAFETY MEASURES IN PLACE, CALL LIGHT WITHIN REACH, WILL CONTINUE TO MONITOR.
--- NOTE | 2019-05-05 07:30 | NUR ---
PATIENT IS AGITATED, STATED " THIS PLACE HAS NO BATHROOM, CAN'T CLOSE THE CURTAIN, IM NOT GOING TO STAY HER." VOCATIONAL TRAINER MADE AWARE PATIENT'S CONCERN.
[2019-05-05] MEDS ORDERED: DEXTROSE 50% 50 ML SYR IVP PRN (07:40)
[2019-05-05] MEDS ORDERED: INSULIN LISPRO SLIDING SCALE 100 UNITS/ML VIAL SUBQ PRN (07:40)
[2019-05-05 08:00] VITALS: BP 133/80
[2019-05-05 09:26] LABS: HEMATOCRIT 35.8 % (36-52); HEMOGLOBIN 11.6 g/dL (12.0-18.0); MEAN CORPUSCULAR HEMOGLOBIN 28 pg (27-31); MEAN CORPUSCULAR HGB CONC 32 g/dL (33-37); MEAN CORPUSCULAR VOLUME 85.6 fL (80-94); PLATELET COUNT (AUTO) 182 K/uL (140-450); RED BLOOD CELL COUNT(AUTO) 4.18 MIL/uL (4.20-6.10); RED CELL DISTRIBUTION WIDTH 16.5 % (11.6-13.7); WHITE BLOOD COUNT (AUTO) 6.8 K/uL (4.8-10.8)
--- NOTE | 2019-05-05 09:30 | NUR ---
SCHEDULED MEDICATION GIVEN, PT HAD A EPISODE OF CRAMPING TO RIGHT LEGS, AGITATED, DR. PARADA MADE AWARE.
[2019-05-05] MEDS: FERROUS SULFATE 325 MG TABEC PO SCH ×2 (09:33→17:17)
[2019-05-05] MEDS: PHENYTOIN 100 MG CAPER PO SCH ×3 (09:33→17:00)
[2019-05-05] MEDS: metFORMIN 500 MG TAB PO SCH ×2 (09:33→20:52)
[2019-05-05] MEDS: FUROSEMIDE 40 MG TAB PO SCH ×2 (09:34→20:52)
[2019-05-05] MEDS: NIFEdipine 30 MG TABER PO SCH (09:34)
[2019-05-05] MEDS: ATORVASTATIN 20 MG TAB PO SCH (09:34)
[2019-05-05] MEDS: ASCORBIC ACID 500 MG TAB PO SCH (09:34)
[2019-05-05] MEDS: CARVEDILOL 3.125 MG TAB PO SCH ×2 (09:34→20:52)
[2019-05-05 09:41] LABS: ALBUMIN 3.1 g/dL (3.4-5.0); ANION GAP 8.3 (8-16); CARBON DIOXIDE 33.9 mmol/L (21-32); CREATININE 1.4 mg/dL (0.6-1.3); POTASSIUM 4.2 mmol/L (3.5-5.1); TOTAL BILIRUBIN 0.1 mg/dL (0.0-1.0)
--- NOTE | 2019-05-05 09:45 | NUR ---
TRANSFER PATIENT TO ROOM 8 WITH BATHROOM, PATIENT STATED HUNGRY EVEN JUST AFTER BREAKFAST, REQUESTS FOR FOOD, SNACKS OFFERED.
[2019-05-05] MEDS ORDERED: MENTHOL/METHYL 10%-15% 114 GM TUBE TP PRN (10:00)
[2019-05-05] MEDS ORDERED: POTASSIUM CHLORIDE 10 MEQ TABER PO SCH (10:00)
[2019-05-05 10:08] LABS: LYMPHOCYTES % (MANUAL) 9 % (20-46); MONOCYTES % (MANUAL) 6 % (5-12)
[2019-05-05 10:09] LABS: AMYLASE 42 U/L (25-115); LIPASE 173 U/L (73-393); MAGNESIUM 1.9 mg/dL (1.8-2.4); PHOSPHORUS 2.4 mg/dL (2.5-4.9); THYROID STIMULATING HORMONE 0.56 uIU/mL (0.34-3.74); TRIGLYCERIDES 78 mg/dL (30-150)
[2019-05-05 12:00] VITALS: BP 128/78
--- NOTE | 2019-05-05 12:00 | NUR ---
PICC LINE INSERTED TO GABRIELE BY BITA CALDWELL, X-RAY CONFIRMED PLACEMENT.
[2019-05-05] MEDS: BLOOD GLUCOSE MONITORING 1 DEV DEV FS SCH ×4 (12:23→20:52)
[2019-05-05] MEDS: MORPHINE SULFATE 2 MG/ML SYR IVP PRN ×2 (13:03→18:35)
[2019-05-05] MEDS: NACL 0.9% 1,000 ML IV SCH ×2 (13:04→18:35)
--- NOTE | 2019-05-05 13:30 | NUR ---
PT CALM DOWN AFTER GIVEN PAIN MEDICATION, NO S/S OF DISTRESS, VSS, SELF POSITION IN BED,
--- NOTE | 2019-05-05 14:00 | NUR ---
PATIENT IS SLEEPING IN BED, NO S/S OF DISTRESS, VSS.
[2019-05-05] MEDS ORDERED: NITROGLYCERIN 0.4 MG TAB SL PRN (14:30)
[2019-05-05] MEDS ORDERED: SODIUM PHOS / POTASSIUM PHOS 1 PKT PDR PO SCH ×2 (15:00→21:00)
--- NOTE | 2019-05-05 15:30 | NUR ---
RESPONDED TO PT CALL LIGHT. PT ASKED FOR ASSISTANCE WITH CLEANING HIMSELF AND HIS BED. PT BECAME AGITATED, STATED DID NOT WANT A MALE RN TO ASSIST. I EXPLAINED TO THAT HIS ASSIGNED RN WAS WITH ANOTHER PT, BUT I WOULD BE ABLE TO ASSIST HIM. HE BECAME IRATE, CURSING AT ME AND BANGING ON THE ROOM WINDOWS. I LEFT STEPPED AWAY, RETURNING WITH A CLEAN GOWN AND SHEETS. PATIENT BECAME MORE UPSET, CONTINUING TO USE PROFANITIES. PT DEMANDED THAT THE FEMALE RNS COME TO CHANGE HIM. AT THAT POINT, MOHAN BURNETT WAS CALLED.
--- NOTE | 2019-05-05 15:40 | NUR ---
PATIENT IS STILL AGITATED, VERBALLY ABUSED, DR. PARADA AND COMPUTATIONAL BIOLOGIST AND ER CHARGE NURSE AT BEDSIDE TALKING TO PATIENT, PLANNING TO TRANSFER PATIENT TO TELEMETRY.
[2019-05-05 16:00] VITALS: BP 158/68
--- NOTE | 2019-05-05 16:10 | NUR ---
PATIENT TRANSFERRED TO ROOM 106A VIA WHEELCHAIR, ALL BELONGINGS WENT WITH PATIENT, PATIENT REFUSED IV FLUID, STILL VERBALLY ABUSE TO NURSES, MD AND CHARGE NURSE AWARE, REPORT GIVEN TO BITA DONNELLY AT BEDSIDE.
--- NOTE | 2019-05-05 16:23 | NUR ---
PT AGITATED AT THIS TIME, STATES "I HEARD THEM TALKING BEHIND MY BACK". PT REQUESTING TO SPEAK WITH "THAT MAN WHO ORDERED FOR ME TO BE MOVED HERE". WILL NOTIFY FUN HOUSE OPERATOR.
--- NOTE | 2019-05-05 16:23 | NUR ---
PT REFUSED VITALS.
--- NOTE | 2019-05-05 16:25 | NUR ---
AWAKE AND ALERT NON COMBATIVE AT THIS TIME EKG PERFORMED BY Torito ESPITIA RCP AND KRUNAL Modi RCP AHSAN/SULMA IN ROOM WITNESS TO THE DIAGNOSTIC TEST PERFORMED [facility]/NEPHROLOGY NURSE RN AWARE
--- NOTE | 2019-05-05 16:25 | NUR ---
PT REMOVED TELE BOX AND REFUSED TO HAVE IT PLACED BACK ON.
--- NOTE | 2019-05-05 16:27 | NUR ---
SUPERVISOR DRYING AND WINDING AND DR. PARADA SPEAKING WITH PATIENT AT BEDSIDE AT THIS TIME. PT AGREED TO BE CALM, COOPERATIVE, AND WILL STAY IN HIS ROOM.
--- NOTE | 2019-05-05 16:35 | NUR ---
PT IS CALM BUT STILL REFUSING TO HAVE TELE MONITOR PLACED ON CHEST. DR. PARADA NOTIFIED. WILL ASK PT AGAIN LATER. PER DR. PARADA, OKAY TO WAIT FOR VOIDED URINE SAMPLE INSTEAD OF STRAIGHT CATH NOW. Addendum: 05/05/19 at 1756 by Kayla Maxwell Meng RN GAVE URINAL TO PT AND ASKED PT TO PROVIDE URINE SAMPLE; PT SAID "OK"
--- NOTE | 2019-05-05 16:35 | NUR ---
PT REFUSING IVF, DR. PARADA AT BEDSIDE.
--- NOTE | 2019-05-05 16:52 | NUR ---
PT YELLING OUT FOR JUICE, WALKS OUT TO THE NURSING STATION TO REQUEST. ASKED PT TO STAY IN ROOM AND USE CALL LIGHT. PER DR. PARADA, OKAY TO GIVE PT JUICE. JUICE PROVIDED TO PT.
--- NOTE | 2019-05-05 17:04 | NUR ---
ASKED PT IF IT IS OKAY TO CHECK FSBS. PT STATES IT IS OKAY. WHEN ENTERING THE ROOM TO CHECK BLOOD SUGAR, PT STATES "THEY ALREADY CHECKED BY BLOOD SUGAR". CONFIRMED WITH OTHER STAFF THAT BLOOD SUGAR WAS NOT CHECKED. PT REFUSED TO HAVE BLOOD SUGAR CHECKED NOW.
--- NOTE | 2019-05-05 17:08 | NUR ---
PT AGREED TO HAVE FSBS CHECKED. RESULT= 93 MG/DL
--- NOTE | 2019-05-05 17:51 | NUR ---
PT WALKED TO THE NURSING STATION, ASKED PULP BLEACHER IN LOUD VOICE "WHERE IS MY DINNER?" PULP BLEACHER ASKED PLANT PRODUCTION WORKER ABOUT TRAYS AND PT YELLED "I ASKED YOU, NOT HER!" PLANT PRODUCTION WORKER INFORMED PT SHE WILL BRING HIM HIS TRAY NOW.
--- NOTE | 2019-05-05 18:45 | NUR ---
called admitting to print and bring new pt wristband.
--- NOTE | 2019-05-05 19:20 | NUR ---
REPORT TO ERIS SUNSHINE. TRANSFER OF CARE AT THIS TIME.
--- NOTE | 2019-05-05 19:30 | NUR ---
RECEIVED REPORT FROM DAYSHIFT NURSE AT PATIENTS BEDSIDE. PATIENT AWAKE AND ALERT. MAKES NEEDS KNOWN, FOLLOWS COMMANDS. LUNG SOUNDS CLEAR, NO SIGNS OF SOB, COUGH, CONGESTION. COMPLAINS OF PAIN AND RATES IT 10/10, DESCRIBES IT TIGHTNESS AND RADIATES TO RIGHT LEG. ON ROOM AIR. GABRIELE PICC IN PLACE INFUSING NS @ 30ML/HR. CONNECTED TO SENIOR MARKETING COORDINATOR, HEART RATE 74 BPM, SR ON MONITOR. S1S2. NO SIGNS OF EDEMA OR JVD. CAP REFILL LESS THAN 3 SECONDS. ABDOMEN IS NONTENDER WITH ACTIVE BOWEL SOUNDS. PATIENT IS CONTINENT AND CURRENTLY USING URINAL AND YELLING AT NURSES. EXPLAINED TO PT TREATMENT PLAN AND IMPORTANCE OF ASSESSING SYMPTOMS. PATIENT RELUCTANT TO TREATMENT. ORIENTED TO CALL LIGHT. SAFETY MEASURES IN PLACE. WILL CONTINUE TO MONITOR.
[2019-05-05] MEDS ORDERED: NACL 0.9% 1,000 ML IV SCH (19:35)
[2019-05-05 20:00] VITALS: BP 129/91
--- NOTE | 2019-05-05 20:01 | NUR ---
PATIENT GETTING UP AND OUT OF BED WITH IV POLE SCREAMING DOWN THE ANN AND STATES HE DOESNT WANT THE IV POLE AND IV BAG. HE REPORTS HE IS DRINKING WATER JUST FINE AND DOES NOT WANT TO BE CONNECTED TO IV MAINTENANCE FLUIDS. REMOVED IV FROM GABRIELE PICC, FLUSHED BOTH LUMENS AND SALINE LOCKED. ASYMPTOMATIC.
[2019-05-05 20:16] LABS: APPEARANCE,URINE CLEAR (CLEAR); BILIRUBIN,URINE NEGATIVE (NEGATIVE); BLOOD, URINE NEGATIVE (NEGATIVE); COLOR,URINE YELLOW (YELLOW); LEUKOCYTE ESTERASE ,URINE NEGATIVE (NEGATIVE); NITRITE, URINE NEGATIVE (NEGATIVE); PH,URINE 6.5 (5.0-9.0); UGLUCOSE NEGATIVE (NEGATIVE)
[2019-05-05 20:38] LABS: BARBITURATE, URINE NEGATIVE ng/ml (NEG <=200); BENZODIAZEPINE, URINE NEGATIVE ng/mL (NEG <=200); CANNABINOID, URINE NEGATIVE ng/mL (NEG <=50); COCAINE, URINE NEGATIVE ng/mL (NEG <=300); OPIATE, URINE POSITIVE ng/mL (NEG <=2000); PHENCYCLIDINE SCREEN,URINE NEGATIVE ng/mL (NEG <=25)
[2019-05-05] MEDS: ENOXAPARIN 120 MG/0.8 ML SYR SUBQ SCH (20:58)
[2019-05-05] MEDS ORDERED: QUEtiapine FUMARATE 100 MG TAB PO SCH (21:00)
--- NOTE | 2019-05-05 21:10 | NUR ---
RECEIVED PATIENT ON ROOM AIR, PULSE OX SAT 98%. INSTRUCTED TO CALL NEEDED FOR RESPIRATORY NEEDS. NO ACUTE RESPIRATORY DISTRESS NOTED AT THIS TIME. WILL CONTINUE TO MONITOR.
--- NOTE | 2019-05-05 22:10 | NUR ---
SCHEDULED MEDICATIONS ADMINISTERED, PATIENT TOLERATED WELL. WHEN ASKED ABOUT MEDICAL HISTORY PATIENT STARTS LISTING MULTIPLE COMORBIDITIES. PATIENT REPORTS BEING HOSPITALIZED AT [facility] YESTERDAY. REPORTS HAVING HIV, MRSA, CVA, CAD, DM, HTN, SEIZURES, CVA, DVT, RENAL DISEASE, ASTHMA, CABG. ASKED PATIENT WHERE DOES HE LIVE, STATES HE LIVES "WHEREVER HE CAN LAY HIS HEAD" ASKED ABOUT MEDICATION COMPLIANCE WITH ALL THE COMORBIDITIES AND HE SAYS HE TAKES ALL HIS MEDICATIONS BUT CANNOT NAME ANY OF THE MEDICATIONS HE IS ON. YELLING AT RN ABOUT FOOD AND SNACKS. PATIENT IS UNCOOPERATIVE.
--- NOTE | 2019-05-06 00:10 | NUR ---
PATIENT UPSET RN KNOCKED AT DOOR AND TRIED TO RECORD VITAL SIGNS, PATIENT YELLING AT RN TO GET OUT AND STATING " I DONT NEED NO VITAL SIGNS IM TRYING TO SLEEP IM FINE" LEAVE ME ALONE. PATIENT CONNECTED TO CORROSION CONTROL FITTER, ABLE TO ASSESS HEART RATE AND VISUALIZE RESPIRATIONS AT DOOR. PATIENT ON ROOM AIR AND SELF TURNS IN BED. DENIES PAIN
--- NOTE | 2019-05-06 02:15 | NUR ---
EYES CLOSED, SNORING LOUDLY. SIDERAILS UP, URINAL AT BEDSIDE. CALL LIGHT WITHIN REACH, DENTAL EQUIPMENT INSTALLER AND SERVICER IN PLAC
--- NOTE | 2019-05-06 05:20 | NUR ---
PATIENT COMPLAINING OF HAVING AN "ACCIDENT" REPORTS EVERY TIME HE HAS SEROQUEL IT KNOCKS HIM OUT AND HE ALWAYS VOIDS ON HIMSELF. RN PROVIDED NEW GOWN AND LINEN AND BORING INSPECTOR's ASSISTING PATIENT. PATIENT YELLING AT CNAS THAT HE CANT DRESS HIMSELF. PATIENT STANDING THERE WITHOUT GOWN AND THEN COMPLAINING HE IS DIZZY SO PATIENT LAID DOWN AND PUT GOWN ON INDEPENDENTLY. PATIENT CONTINUING TO YELL AT STAFF, COMPLAINING ABOUT LEAVING DOOR CLOSE, HE WANTS TO SLEEP, WANTS TO BE LEFT ALONE. ON ROOM AIR, NO SIGNS OF DISTRESS. ORIENTED TO CALL LIGHT.
[2019-05-06] MEDS: BLOOD GLUCOSE MONITORING 1 DEV DEV FS SCH (06:18)
[2019-05-06 06:21] LABS: BASOPHILS % (AUTO) 0.2 % (0.0-2.0); EOSINOPHILS # (AUTO) 0.1 K/uL (0-0.4); EOSINOPHILS % (AUTO) 0.9 % (0.0-4.0); HEMATOCRIT 39.1 % (36-52); HEMOGLOBIN 12.6 g/dL (12.0-18.0); LYMPHOCYTES # (AUTO) 2.6 K/uL (2.0-11.5); MEAN CORPUSCULAR HEMOGLOBIN 28 pg (27-31); MEAN CORPUSCULAR HGB CONC 32 g/dL (33-37); MEAN CORPUSCULAR VOLUME 85.9 fL (80-94); MONOCYTES # (AUTO) 0.5 K/uL (0.8-1.0); MONOCYTES % (AUTO) 6.4 % (1.7-9.3); NEUTROPHILS # (AUTO) 4.7 K/uL (1.8-7.7); NEUTROPHILS % (AUTO) 59.5 % (42.2-75.2); PLATELET COUNT (AUTO) 165 K/uL (140-450); RED BLOOD CELL COUNT(AUTO) 4.56 MIL/uL (4.20-6.10); RED CELL DISTRIBUTION WIDTH 16.4 % (11.6-13.7); WHITE BLOOD COUNT (AUTO) 7.9 K/uL (4.8-10.8)
[2019-05-06 06:55] LABS: ANION GAP 10.5 (8-16); CARBON DIOXIDE 33.1 mmol/L (21-32); CREATININE 1.3 mg/dL (0.6-1.3); POTASSIUM 3.6 mmol/L (3.5-5.1)
[2019-05-06 07:01] LABS: MAGNESIUM 1.9 mg/dL (1.8-2.4); PHOSPHORUS 3.2 mg/dL (2.5-4.9)
--- NOTE | 2019-05-06 07:15 | NUR ---
RECEIVED PATIENT FROM HOTEL ADMINISTRATIVE ASSISTANT NURSE ERIS FOR CONTINUITY OF CARE. PATIENT IS SLEEPING AT THIS TIME. RESPIRATIONS EVEN AND UNLABORED, ROOM AIR. VISIBLE CHEST RISE NOTED. ON TELE MONITORING. ABDOMEN SOFT, ROUND, NONTENDER. BOWEL SOUNDS ACTIVE X4 QUADS. SKIN WARM, DRY, AND INTACT. RIGHT UPPER PICC LINE, PATENT AND INTACT. PER HOTEL ADMINISTRATIVE ASSISTANT NURSE, PATIENT REFUSED IV FLUID NS. PATIENT IS AMBULATORY. PATIENT IS CONTINENT. BED IN LOW POSITION. SEIZURE PRECAUTIONS IN PLACE. CALL LIGHT IS WITHIN REACH. WILL CONTINUE TO MONITOR.
[2019-05-06 07:59] VITALS: BP 135/78
[2019-05-06 08:00] VITALS: BP 135/75
[2019-05-06 08:19] LABS: T4 (THYROXINE) 5.1 ug/dL (4.5-12.0)
[2019-05-06] MEDS ORDERED: FAMO-90 PO (08:32)
--- NOTE | 2019-05-06 08:52 | NUR ---
PATIENT HAS BEEN SCREENED AND CATEGORIZED MODERATE NUTRITION RISK. PATIENT WILL BE SEEN WITHIN 3-5 DAYS OF ADMISSION. 05/07/19 05/09/[address]
[2019-05-06] MEDS: ASCORBIC ACID 500 MG TAB PO SCH (08:59)
[2019-05-06] MEDS: FERROUS SULFATE 325 MG TABEC PO SCH (08:59)
[2019-05-06] MEDS: FUROSEMIDE 40 MG TAB PO SCH (09:00)
[2019-05-06] MEDS: CARVEDILOL 3.125 MG TAB PO SCH (09:00)
[2019-05-06] MEDS: NIFEdipine 30 MG TABER PO SCH (09:00)
[2019-05-06] MEDS ORDERED: POTASSIUM CHLORIDE 10 MEQ TABER PO SCH (09:00)
[2019-05-06] MEDS ORDERED: FAMOTIDINE 20 MG TAB PO SCH (09:00)
[2019-05-06] MEDS: metFORMIN 500 MG TAB PO SCH (09:01)
[2019-05-06] MEDS: PHENYTOIN 100 MG CAPER PO SCH (09:01)
[2019-05-06] MEDS: ENOXAPARIN 120 MG/0.8 ML SYR SUBQ SCH (09:05)
[2019-05-06] MEDS: ATORVASTATIN 20 MG TAB PO SCH (09:05)
--- NOTE | 2019-05-06 09:09 | NUR ---
PATIENT REFUSED TELE MONITOR TO BE FIXED. PATIENT STATED "LEAVE ME ALONE, GET OUT OF HERE"
--- NOTE | 2019-05-06 09:10 | NUR ---
GIVEN MORNING MEDICATIONS PO. LOVENOX SUBQ IN THE ABDOMEN. PLATELET IS 165. REFUSED LASIX, ADALAT, COREG. GIVEN MEDICATION EDUCATION. PATIENT VERBALIZED UNDERSTANDING. BED IN LOW POSITION. CALL LIGHT IS WITHIN REACH. WILL CONTINUE TO MONITOR
--- NOTE | 2019-05-06 09:32 | NUR ---
PATIENT REFUSED TO SIGN SOME OF THE DISCHARGE PAPERWORK. GIVEN DISCHARGE INSTRUCTIONS. PATIENT VERBALIZED UNDERSTANDING. NO FURTHER QUESTIONS.
--- NOTE | 2019-05-06 09:35 | NUR ---
DISCONTINUED PICC LINE. PATIENT TOLERATED WELL. COVERED WITH 2X2 AND TAPE. MINIMAL BLEEDING.
--- NOTE | 2019-05-06 09:38 | NUR ---
REMOVED ID BAND. BUS PASSES GIVEN.
--- NOTE | 2019-05-06 09:39 | NUR ---
REFUSED FLU AND PNA VACCINES.
--- NOTE | 2019-05-06 09:40 | NUR ---
DISCHARGED PATIENT ON FOOT. PATIENT DENIES ANY PAIN. NO CHEST PAIN. PATIENT IS IN STABLE CONDITION.
== END 2019-05-06 09:40 | disposition home or self-care (01) | DRG 391 ==
LOC: MED 03:46 → MIC 06:27 → MTU 07:02 → MIC 09:54 → MTU 15:58
PROVIDERS: ADMIT General Practice; ATTEND General Practice
PROC: 02HV33Z Insertion of Infusion Device into Superior Vena Cava, Percutaneous Approach (ICD-10-PCS; principal; 2019-05-05)
PROC: B548ZZA Ultrasonography of Superior Vena Cava, Guidance (ICD-10-PCS; 2019-05-05)
DX: K21.9 Gastro-esophageal reflux disease without esophagitis (principal); N17.0 Acute kidney failure with tubular necrosis; E44.1 Mild protein-calorie malnutrition; J45.901 Unspecified asthma with (acute) exacerbation; I69.351 Hemiplegia and hemiparesis following cerebral infarction affecting right dominant side; I50.9 Heart failure, unspecified; G40.909 Epilepsy, unspecified, not intractable, without status epilepticus; E78.5 Hyperlipidemia, unspecified; F17.210 Nicotine dependence, cigarettes, uncomplicated; I11.0 Hypertensive heart disease with heart failure; E83.39 Other disorders of phosphorus metabolism; E66.9 Obesity, unspecified; F39 Unspecified mood [affective] disorder; F11.10 Opioid abuse, uncomplicated; Z68.32 Body mass index [BMI] 32.0-32.9, adult; Z88.0 Allergy status to penicillin; Z88.8 Allergy status to other drugs, medicaments and biological substances; Z88.6 Allergy status to analgesic agent; Z91.041 Radiographic dye allergy status; Z79.899 Other long term (current) drug therapy; Z86.718 Personal history of other venous thrombosis and embolism; Z86.711 Personal history of pulmonary embolism; I25.2 Old myocardial infarction; Z82.49 Family history of ischemic heart disease and other diseases of the circulatory system
CPT/HCPCS: 36415; 71045; 80048; 80053; 80185; 80305; 81003; 82140; 82150; 82550; 82553; 82948; 83036; 83690; 83735; 83880; 84100; 84436; 84443; 84484; 85007; 85025; 85610; 85730; 87081; 93005; 93970; 97161-GP; 99285; C1751; J1644; J1650; J1815; J2270; J7030; Q0092

== ENCOUNTER 2019-11-10 22:38 | Emergency (ER) | payer BC, OTHER ==
[~2019-11-10] VITALS: Ht 193 cm; Wt 119.7 kg
[~2019-11-10 22:38] MED LIST changes: -ASCO500T45 PO; +ASCO500T95 PO; +CARV3.12 PO; +FAMO-90 PO; +METF-1022 PO
--- NOTE | 2019-11-10 23:00 | NUR ---
ambulated to bed 07 with steady gait.
--- NOTE | 2019-11-10 23:01 | NUR ---
Dr. Townsend at bedside assessing pt.
--- NOTE | 2019-11-10 23:01 | NUR ---
44 year old male presents with c/o sternal chest pain that is radiating to right arm and jaw that started x 2 hours. reports occassional SOB. denies cough. + headache. pt is a/o x 4. noted BLE edema, pitting + 2. denies any other s/sx. denies injury or trauma. awaiting MSE. connected to cardiac monitoring, pulse oximetry. pmhx: sz, htn, hld, 3 IL(feb 2019 last IL), 3 CVA ( last 2018), pulmonary embolism, DVT, CHF, schizophrenia, allx: tylenol, pcn, asa, nitro, iodine
--- NOTE | 2019-11-11 | NUR ---
blood drawn by medical laboratory technical officer.
[2019-11-11] MEDS ORDERED: IBUPROFEN 400 MG TAB ONE (00:40)
[2019-11-11] MEDS ORDERED: IBUPROFEN 400 MG TAB PO ONE (00:40)
[2019-11-11 00:41] LABS: BASOPHILS # (AUTO) 0.1 K/uL (0.00-0.22); BASOPHILS % (AUTO) 0.6 % (0.0-2.0); EOSINOPHILS # (AUTO) 0.2 K/uL (0-0.4); EOSINOPHILS % (AUTO) 2.3 % (0.0-4.0); HEMATOCRIT 39.1 % (36-52); HEMOGLOBIN 12.7 g/dL (12.0-18.0); LYMPHOCYTES # (AUTO) 1.5 K/uL (2.0-11.5); LYMPHOCYTES % (AUTO) 18.1 % (20.5-51.1); MEAN CORPUSCULAR HEMOGLOBIN 28 pg (27-31); MEAN CORPUSCULAR HGB CONC 33 g/dL (33-37); MEAN CORPUSCULAR VOLUME 85.1 fL (80-94); MONOCYTES # (AUTO) 0.9 K/uL (0.8-1.0); MONOCYTES % (AUTO) 10.5 % (1.7-9.3); NEUTROPHILS # (AUTO) 5.6 K/uL (1.8-7.7); NEUTROPHILS % (AUTO) 68.5 % (42.2-75.2); PLATELET COUNT (AUTO) 182 K/uL (140-450); RED BLOOD CELL COUNT(AUTO) 4.59 MIL/uL (4.20-6.10); RED CELL DISTRIBUTION WIDTH 16.5 % (11.6-13.7); WHITE BLOOD COUNT (AUTO) 8.2 K/uL (4.8-10.8)
[2019-11-11 00:47] VITALS: BP 112/78
[2019-11-11 00:59] LABS: ALBUMIN 3.5 g/dL (3.4-5.0); ANION GAP 9.8 (8-16); CARBON DIOXIDE 32.4 mmol/L (21-32); CREATININE 1.4 mg/dL (0.6-1.3); POTASSIUM 5.2 mmol/L (3.5-5.1); TOTAL BILIRUBIN 0.2 mg/dL (0.0-1.0)
[2019-11-11 01:02] LABS: PROTHROMBIN TIME 10.8 secs (10.8-13.4)
--- NOTE | 2019-11-11 01:50 | NUR ---
Patient discharged with v/s stable. Written and verbal after care instructions given and explained. Patient verbalized understanding. Ambulatory with steady gait. All questions addressed prior to discharge. Advised to follow up with PMD.
== END 2019-11-11 01:50 | disposition home or self-care (01) ==
LOC: MED 22:38
DX: R07.9 Chest pain, unspecified (principal); R42 Dizziness and giddiness; M79.89 Other specified soft tissue disorders; J45.909 Unspecified asthma, uncomplicated; E78.5 Hyperlipidemia, unspecified; Z79.899 Other long term (current) drug therapy; Z86.73 Personal history of transient ischemic attack (TIA), and cerebral infarction without residual deficits; Z88.0 Allergy status to penicillin; Z88.5 Allergy status to narcotic agent; Z88.6 Allergy status to analgesic agent; Z88.8 Allergy status to other drugs, medicaments and biological substances
CPT/HCPCS: 36415; 71045; 80053; 83880; 84484; 85025; 85610; 85730; 93005; 99285; Q0092

== ENCOUNTER 2020-02-13 03:39 | Emergency (ER) | payer BC, OTHER ==
[~2020-02-13] VITALS: Ht 193 cm; Wt 122.0 kg
--- NOTE | 2020-02-13 03:50 | NUR ---
EKG PERFORMED IN TRIAGE ROOM. EKG READS SINUS RHYTHM @ 91
[2020-02-13 04:05] VITALS: BP 132/71
--- NOTE | 2020-02-13 04:07 | NUR ---
TO LOBBY A/W BED AMBULATORY
--- NOTE | 2020-02-13 04:20 | NUR ---
SEEN AND EXAMINED BY ADRIAN WITH ORDERS AND CARRIED OUT
[2020-02-13 04:40] VITALS: BP 132/71
--- NOTE | 2020-02-13 04:40 | NUR ---
PATIENT WENT HOME WITHOUT D/C INSTRUCTIONS.
== END 2020-02-13 04:40 | disposition home or self-care (01) ==
LOC: MED 03:39
DX: R07.89 Other chest pain (principal); R05 Cough; R06.02 Shortness of breath; J45.909 Unspecified asthma, uncomplicated; Z79.899 Other long term (current) drug therapy; Z86.73 Personal history of transient ischemic attack (TIA), and cerebral infarction without residual deficits; Z85.9 Personal history of malignant neoplasm, unspecified; Z88.0 Allergy status to penicillin; Z88.6 Allergy status to analgesic agent; Z88.8 Allergy status to other drugs, medicaments and biological substances; Z88.5 Allergy status to narcotic agent
CPT/HCPCS: 93005; 99283

== ENCOUNTER 2020-03-21 02:39 | Emergency (ER) | payer BC, OTHER ==
[~2020-03-21] VITALS: Ht 193 cm; Wt 122.5 kg
[2020-03-21 02:43] VITALS: BP 150/97
--- NOTE | 2020-03-21 02:43 | NUR ---
TO BED # 07 AMBULATORY
[2020-03-21] MEDS ORDERED: oxyCODONE/APAP 5/325 MG 1 TAB TAB PO ONE (03:35)
--- NOTE | 2020-03-21 03:39 | NUR ---
PATIENT PRESENTS TO ED WITH SWOLLEN PAINFUL LEGS. PT STATES HE WAS VISITING FAMILY IN [place] AND WENT TO THE HOSPITAL THERE. HE WAS DX WITH A DVT AND GIVEN MEDS. PT UNABLE TO FILL MEDS. HAS HX OF DVT. DENIES N/V/D; SKIN IS PINK/WARM/DRY; AAOX4 WITH EVEN AND STEADY GAIT; LUNGS CLEAR BL; HR EVEN AND REGULAR; PT DENIES ANY FEVER, CP, SOB, OR COUGH AT THIS TIME; PATIENT STATES PAIN OF 0/10 AT THIS TIME; VSS; PATIENT POSITIONED FOR COMFORT; HOB ELEVATED; BEDRAILS UP X2; BED DOWN. ER MD MADE AWARE OF PT STATUS.
--- NOTE | 2020-03-21 03:49 | NUR ---
RAD AT BEDSIDE
[2020-03-21 03:53] LABS: BASOPHILS % (AUTO) 0.3 % (0.0-2.0); EOSINOPHILS # (AUTO) 0.1 K/uL (0-0.4); EOSINOPHILS % (AUTO) 1.8 % (0.0-4.0); HEMATOCRIT 37.2 % (36-52); HEMOGLOBIN 12.2 g/dL (12.0-18.0); LYMPHOCYTES # (AUTO) 1.9 K/uL (2.0-11.5); LYMPHOCYTES % (AUTO) 24.3 % (20.5-51.1); MEAN CORPUSCULAR HEMOGLOBIN 27 pg (27-31); MEAN CORPUSCULAR HGB CONC 33 g/dL (33-37); MEAN CORPUSCULAR VOLUME 81.8 fL (80-94); MONOCYTES # (AUTO) 0.6 K/uL (0.8-1.0); MONOCYTES % (AUTO) 6.9 % (1.7-9.3); NEUTROPHILS # (AUTO) 5.3 K/uL (1.8-7.7); NEUTROPHILS % (AUTO) 66.7 % (42.2-75.2); PLATELET COUNT (AUTO) 207 K/uL (140-450); RED BLOOD CELL COUNT(AUTO) 4.55 MIL/uL (4.20-6.10); RED CELL DISTRIBUTION WIDTH 16.7 % (11.6-13.7)
[2020-03-21 04:13] LABS: ALBUMIN 3.5 g/dL (3.4-5.0); ANION GAP 11.5 (8-16); CARBON DIOXIDE 29.5 mmol/L (21-32); CREATININE 1.1 mg/dL (0.6-1.3); TOTAL BILIRUBIN 0.1 mg/dL (0.0-1.0)
[2020-03-21 04:23] LABS: PROTHROMBIN TIME 10.6 secs (10.8-13.4)
[2020-03-21 05:51] VITALS: BP 138/81
== END 2020-03-21 05:51 | disposition home or self-care (01) ==
LOC: MED 02:39
DX: R60.0 Localized edema (principal); M79.661 Pain in right lower leg; J45.909 Unspecified asthma, uncomplicated; Z88.0 Allergy status to penicillin; Z88.6 Allergy status to analgesic agent; Z88.5 Allergy status to narcotic agent; Z79.899 Other long term (current) drug therapy
CPT/HCPCS: 36415; 71045; 80053; 83690; 84484; 85025; 85610; 85730; 93005; 93971; 99285